=== PATIENT | female | born 1935 | race Caucasian/White ===

== ENCOUNTER 2017-08-14 07:44 | Observation (INO) | payer MEDICARE ==
[2017-08-14] MEDS ORDERED: MORPHINE SULFATE 4MG/4ML SYRG IVP STA (08:26)
[2017-08-14] MEDS ORDERED: SODIUM CHLORIDE 0.9% 500 ML IV STA (08:26)
[2017-08-14] MEDS ORDERED: SODIUM CHLORIDE 0.9% 1,000 ML IV STA (08:26)
[2017-08-14] MEDS ORDERED: ONDANSETRON ODT 4 MG TAB PO STA (08:27)
--- NOTE | 2017-08-14 08:38 | ED ---
General Adult HPI - General Chief complaint: Abdominal Pain Stated complaint: Headache Time Seen by Provider: 08/14/17 08:15 Source: EMS, RN notes reviewed Mode of arrival: EMS Limitations: no limitations - History of Present Illness Initial comments: Patient 82-year-old female presented to the emergency room today with multiple complaints patient admits that she has been having headaches the back of her head that has been aching type sensation over the last 2 months. She states she has been followed the family doctor has an MRI scheduled for next week. Most recently saw him yesterday in the office. States she's been having some nausea vomiting symptoms with these headaches. Does admit some photosensitivity. Patient states she was given a couple different medications one made her more nauseous. She states she has nausea medicine at home. Did not take anything this morning. She also admits to left-sided abdominal pain. She states she's had this for the past year. States she went to the surgeon for this had a CAT scan done. She states that she is still had this pain. States is worse from last night. She describes it as a sharp pain. States is located in the upper quadrant. She denies any other complaints or symptoms. She states this pain is similar to pain that she's had in the past. Patient denies any recent fever, chills, shortness of breath, chest pain, back pain, numbness or tingling, dysuria or hematuria, constipation or diarrhea, visual changes, or any other complaints. - Related Data Home Medications Medication Instructions Recorded Confirmed Aspirin 325 mg PO ONCE 08/14/17 08/14/17 Lisinopril [Zestril] 10 mg PO DAILY 08/14/17 08/14/17 Pravastatin Sodium [Pravachol] 20 mg PO HS 08/14/17 08/14/17 carBAMazepine [TEGretol] 200 mg PO Q12H 08/14/17 08/14/17 Allergies Allergy/AdvReac Type Severity Reaction Status Date / Time Penicillins Allergy Swelling Verified 08/14/17 09:20 Review of Systems ROS Statement: Those systems with pertinent positive or pertinent negative responses have been documented in the HPI. ROS Other: All systems not noted in ROS Statement are negative. Past Medical History Past Medical History: Hyperlipidemia, Hypertension Additional Past Medical History / Comment(s): migraines, diverticulosis History of Any Multi-Drug Resistant Organisms: None Reported Past Surgical History: Hysterectomy Additional Past Surgical History / Comment(s): right shoulder Past Psychological History: No Psychological Hx Reported Smoking Status: Never smoker Past Alcohol Use History: None Reported Past Drug Use History: None Reported General Exam - General Exam Comments Initial Comments: General: The patient is awake and alert, in no distress, and does not appear acutely ill. Eye: Pupils are equal, round and reactive to light, extra-ocular movements are intact. No nystagmus. There is normal conjunctiva bilaterally. No signs of icterus. Ears, nose, mouth and throat: There are moist mucous membranes and no oral lesions. Neck: The neck is supple, there is no tenderness or JVD. Cardiovascular: There is a regular rate and rhythm. No murmur, rub or gallop is appreciated. Respiratory: Lungs are clear to auscultation, respirations are non-labored, breath sounds are equal. No wheezes, stridor, rales, or rhonchi. Gastrointestinal: Abdomen soft on palpation. Tender to palpation left upper quadrant. No rebound tenderness. No guarding. No CVA tenderness. Musculoskeletal: Normal ROM, no tenderness. Strength 5/5. Sensation intact. Pulses equal bilaterally 2+. Neurological: A&O x 3. CN II-XII intact, There are no obvious motor or sensory deficits. Coordination appears grossly intact. Speech is normal. Skin: Skin is warm and dry and no rashes or lesions are noted. Psychiatric: Cooperative, appropriate mood & affect, normal judgment. Limitations: no limitations Course Vital Signs 08/14/17 08/14/17 08/14/17 07:47 08:42 10:19 Temperature 97.7 F Pulse Rate 76 83 93 Respiratory 18 16 16 Rate Blood Pressure 171/94 146/70 154/72 O2 Sat by Pulse 99 99 99 Oximetry EKG Findings - EKG Comments: EKG Findings:: EKG performed 0835: Shows sinus rhythm with first-degree AV block at 77 bpm. ND interval 212. QRS 86. QT/QTC 414/468. No acute ST changes Medical Decision Making - Medical Decision Making Patient examined at this time states that there is mild improvement of headache. Currently rates it a 9/10. Does admit that pain is felt better. She does admit that this abdominal pain has been present over the last year. Patient's report. States it does feel similar but was worse yesterday. Patient admits that these headaches have been present over the last 2 months. States improvement with medications. Case discussed with attending physician Dr. Verdin who discussed case with physician Dr. Sinha and will have consult to neurology. - Lab Data Result diagrams: 08/14/17 07:55 08/14/17 07:55 Lab Results 08/14/17 08/14/17 08/14/17 Range/Units 07:55 07:55 07:55 WBC (3.8-10.6) k/uL RBC (3.80-5.40) m/uL Hgb (11.4-16.0) gm/dL Hct (34.0-46.0) % MCV (80.0-100.0) fL MCH (25.0-35.0) pg MCHC (31.0-37.0) g/dL RDW (11.5-15.5) % Plt Count (150-450) k/uL Neutrophils % % Lymphocytes % % Monocytes % % Eosinophils % % Basophils % % Neutrophils # (1.3-7.7) k/uL Lymphocytes # (1.0-4.8) k/uL Monocytes # (0-1.0) k/uL Eosinophils # (0-0.7) k/uL Basophils # (0-0.2) k/uL PT 10.8 (9.0-12.0) sec INR 1.1 (<1.2) APTT 25.5 (22.0-30.0) sec Sodium 131 L (137-145) mmol/L Potassium 4.9 (3.5-5.1) mmol/L Chloride 93 L (98-107) mmol/L Carbon Dioxide 22 (22-30) mmol/L Anion Gap 16 mmol/L BUN 17 (7-17) mg/dL Creatinine 0.80 (0.52-1.04) mg/dL Est GFR (CKD-EPI)AfAm 80 (>60 ml/min/1.73 sqM) Est GFR (CKD-EPI)NonAf 69 (>60 ml/min/1.73 sqM) Glucose 83 (74-99) mg/dL Plasma Lactic Acid Baltazar 1.2 (0.7-2.0) mmol/L Calcium 9.8 (8.4-10.2) mg/dL Total Bilirubin 0.6 (0.2-1.3) mg/dL AST 42 H (14-36) U/L ALT 29 (9-52) U/L Alkaline Phosphatase 56 (38-126) U/L Total Creatine Kinase (30-135) U/L CK-MB (CK-2) (0.0-2.4) ng/mL CK-MB (CK-2) Rel Index Troponin I (0.000-0.034) ng/mL Total Protein 6.4 (6.3-8.2) g/dL Albumin 4.1 (3.5-5.0) g/dL Amylase 44 (30-110) U/L Lipase 45 (23-300) U/L Urine Color Urine Appearance (Clear) Urine pH (5.0-8.0) Ur Specific [place] (1.001-1.035) Urine Protein (Negative) Urine Glucose (UA) (Negative) Urine Ketones (Negative) Urine Blood (Negative) Urine Nitrite (Negative) Urine Bilirubin (Negative) Urine Urobilinogen (<2.0) mg/dL Ur Leukocyte Esterase (Negative) 08/14/17 08/14/17 08/14/17 Range/Units 07:55 07:55 07:55 WBC 5.3 (3.8-10.6) k/uL RBC 4.98 (3.80-5.40) m/uL Hgb 14.7 (11.4-16.0) gm/dL Hct 42.1 (34.0-46.0) % MCV 84.6 (80.0-100.0) fL MCH 29.4 (25.0-35.0) pg MCHC 34.8 (31.0-37.0) g/dL RDW 12.6 (11.5-15.5) % Plt Count 270 (150-450) k/uL Neutrophils % 62 % Lymphocytes % 22 % Monocytes % 10 % Eosinophils % 2 % Basophils % 1 % Neutrophils # 3.3 (1.3-7.7) k/uL Lymphocytes # 1.2 (1.0-4.8) k/uL Monocytes # 0.5 (0-1.0) k/uL Eosinophils # 0.1 (0-0.7) k/uL Basophils # 0.0 (0-0.2) k/uL PT (9.0-12.0) sec INR (<1.2) APTT (22.0-30.0) sec Sodium (137-145) mmol/L Potassium (3.5-5.1) mmol/L Chloride (98-107) mmol/L Carbon Dioxide (22-30) mmol/L Anion Gap mmol/L BUN (7-17) mg/dL Creatinine (0.52-1.04) mg/dL Est GFR (CKD-EPI)AfAm (>60 ml/min/1.73 sqM) Est GFR (CKD-EPI)NonAf (>60 ml/min/1.73 sqM) Glucose (74-99) mg/dL Plasma Lactic Acid Bal[place]zar (0.7-2.0) mmol/L Calcium (8.4-10.2) mg/dL Total Bilirubin (0.2-1.3) mg/dL AST (14-36) U/L ALT (9-52) U/L Alkaline Phosphatase (38-126) U/L Total Creatine Kinase 795 H (30-135) U/L CK-MB (CK-2) 3.4 H* (0.0-2.4) ng/mL CK-MB (CK-2) Rel Index 0.4 Troponin I <0.012 (0.000-0.034) ng/mL Total Protein (6.3-8.2) g/dL Albumin (3.5-5.0) g/dL Amylase (30-110) U/L Lipase (23-300) U/L Urine Color Light Yellow Urine Appearance Clear (Clear) Urine pH 6.0 (5.0-8.0) Ur Specific [place] 1.011 (1.001-1.035) Urine Protein Negative (Negative) Urine Glucose (UA) Negative (Negative) Urine Ketones 3+ H (Negative) Urine Blood Negative (Negative) Urine Nitrite Negative (Negative) Urine Bilirubin Negative (Negative) Urine Urobilinogen <2.0 (<2.0) mg/dL Ur Leukocyte Esterase Negative (Negative) Disposition Clinical Impression: Intractable headache, Abdominal pain Disposition: ADMITTED IP TO THIS [facility] Condition: Stable Is patient prescribed a controlled substance at discharge?: No Referrals: Yefri Martinez DO [Primary Care Provider] - 1-2 days Time of Disposition: 11:28
[2017-08-14 08:42] LABS: Basophils % (A) 1 %; Eosinophils # (A) 0.1 k/uL (0-0.7); Eosinophils % (A) 2 %; HCT 42.1 % (34.0-46.0); HGB 14.7 gm/dL (11.4-16.0); Lymphocytes # (A) 1.2 k/uL (1.0-4.8); Lymphocytes % (A) 22 %; MCH 29.4 pg (25.0-35.0); MCHC 34.8 g/dL (31.0-37.0); MCV 84.6 fL (80.0-100.0); Mean Platelet Volume 7.3; Monocytes # (A) 0.5 k/uL (0-1.0); Monocytes % (A) 10 %; Neutrophils # (A) 3.3 k/uL (1.3-7.7); Neutrophils % (A) 62 %; Platelet Count 270 k/uL (150-450); RBC 4.98 m/uL (3.80-5.40); RDW 12.6 % (11.5-15.5); WBC 5.3 k/uL (3.8-10.6)
[2017-08-14 08:45] LABS: Appearance,Urine Clear (Clear); Bilirubin,Urine Negative (Negative); Blood,Urine Negative (Negative); Color,Urine Light Yellow; Glucose,Urine (UA) Negative (Negative); Ketones,Urine 3+ (Negative); Leukocyte Esterase,Urine Negative (Negative); Nitrite,Urine Negative (Negative); Protein,Urine Negative (Negative); Specific Gravity,Urine 1.011 (1.001-1.035); Urobilinogen,Urine <2.0 mg/dL (<2.0)
[2017-08-14 08:52] LABS: INR 1.1 (<1.2); Partial Thromboplastin Time 25.5 sec (22.0-30.0); Prothrombin Time 10.8 sec (9.0-12.0)
[2017-08-14 08:54] LABS: Albumin 4.1 g/dL (3.5-5.0); Calcium 9.8 mg/dL (8.4-10.2); Potassium 4.9 mmol/L (3.5-5.1); Total Bilirubin 0.6 mg/dL (0.2-1.3); Total Protein 6.4 g/dL (6.3-8.2)
[2017-08-14 09:10] LABS: Creatine Kinase 795 U/L (30-135)
--- NOTE | 2017-08-14 09:16 | XR ---
EXAMINATION TYPE: XR chest 2V DATE OF EXAM: 08/14/2017 COMPARISON: NONE HISTORY: Abdominal and chest pain TECHNIQUE: Frontal and lateral views of the chest are obtained. FINDINGS: There is no focal air space opacity, pleural effusion, or pneumothorax seen. The cardiac silhouette size is within normal limits. The osseous structures are intact. Minimal multilevel dege nerative changes of the thoracic spine are noted. Pulmonary hyperinflation may relate to underlying C OPD although there is no flattening of the diaphragms or biapical lucency and therefore this could al so relate to degree of inspiration. Correlation with pulmonary function test could be performed. IMPRESSION: No acute cardiopulmonary process.
[2017-08-14] MEDS ORDERED: RX INFO: IV CONTRAST WAS GIVEN 1 EACH MISC MISCELLANE PRN (09:17)
--- NOTE | 2017-08-14 09:18 | CT ---
EXAMINATION TYPE: CT brain elizabeth courtney DATE OF EXAM: 08/14/2017 COMPARISON: NONE HISTORY: Headache and neck pain CT DLP: 1197.8 mGycm Automated exposure control for dose reduction was used. TECHNIQUE: CT scan of the head and cervical spine are performed without contrast. FINDINGS: There is no acute intracranial hemorrhage, mass effect, or midline shift identified. The ventricles and sulci are within normal limits in size. Periventricular white matter low attenuation likely due to chronic small vessel ischemia is present. The globes are intact and the visualized sinu ses are clear. Cervical spine is visualized in its entirety from C1 through upper thoracic levels and demonstrates s atisfactory alignment without evidence of acute fracture or dislocation. Prevertebral soft tissue ap pears within normal limits. There is multilevel spondylosis, multilevel foraminal encroachment. Loss of disc height present at C3-4, C4-5 and C5-6. The C1-C2 articulation is unremarkable. IMPRESSION: 1. There is no acute fracture or dislocation evident in the cervical spine. 2. No acute intracranial hemorrhage, mass effect, or midline shift is seen.
[2017-08-14 09:22] LABS: Troponin I <0.012 ng/mL (0.000-0.034)
[2017-08-14 09:26] LABS: Creatine Kinase MB 3.4 ng/mL (0.0-2.4)
--- NOTE | 2017-08-14 09:54 | CT ---
EXAMINATION TYPE: CT abdomen pelvis w con DATE OF EXAM: 08/14/2017 HISTORY: Intermittent left-sided sided abdominal pain CT DLP: 333.6mGycm Automated Exposure Control for Dose Reduction was Utilized. CONTRAST: CT scan of the abdomen and pelvis is performed with IV Contrast, patient injected with 100 mL of Isov ue 300. COMPARISON: 01/26/2015 FINDINGS: LUNG BASES: No significant abnormality is appreciated. LIVER/GB: No intrapelvic biliary ductal dilatation. The hepatic parenchyma enhances homogeneously. Ga llbladder is unremarkable without cholelithiasis. PANCREAS: No ductal dilatation. Pancreas enhances homogeneously. SPLEEN: No significant abnormality is seen. No splenomegaly. ADRENALS: No nodularity or thickening. KIDNEYS: Bilateral subcentimeter hypoattenuated renal lesions measure up to 4 mm and are too small to accurately characterize. BOWEL: There is redemonstration of a small hiatal hernia. Bowel is nondilated. Scattered colonic dive rticula are seen without pericolonic fat stranding. Descending duodenal diverticulum is redemonstrate d. LYMPH NODES: No greater than 1cm abdominal or pelvic lymph nodes are appreciated. OSSEOUS STRUCTURES: Multilevel degenerative changes of the as well as lumbosacral spine are noted. IMPRESSION: No significant acute finding is seen to account for patient's clinical symptoms. Colonic diverticulosis without evidence of acute diverticulitis. Redemonstration of a small hiatal hernia.
[2017-08-14] MEDS ORDERED: METOCLOPRAMIDE 5 MG/ML 2 ML VIAL IVP STA (09:58)
[2017-08-14] MEDS ORDERED: diphenhydrAMINE 50 MG/ML 1 ML VIAL IVP STA (09:58)
[2017-08-14] MEDS ORDERED: MORPHINE ORAL SOLN 10 MG/5 ML CUP PO PRN (11:28)
[2017-08-14] MEDS ORDERED: SODIUM CHLORIDE 0.9% 1,000 ML IV ONE (11:28)
[2017-08-14] MEDS ORDERED: ONDANSETRON 4 MG/2 ML VIAL IVP PRN (11:28)
[2017-08-14] MEDS ORDERED: NALOXONE 0.4 MG/ML 1 ML VIAL IV PRN (11:28)
[2017-08-14] MEDS ORDERED: LORazepam 2 MG/ML INJ IV PRN (12:29)
[2017-08-14] MEDS: carBAMazepine 200 MG TAB PO SCH ×2 (16:09→21:24)
[2017-08-14] MEDS: PANTOPRAZOLE 40 MG/10 ML VIAL IVP SCH ×2 (16:09→21:24)
[2017-08-14] MEDS: KETOROLAC 30 MG/ML 1 ML VIAL IVP PRN (16:09)
--- NOTE | 2017-08-14 18:33 | MR ---
EXAMINATION TYPE: MR brain wo/w con DATE OF EXAM: 08/14/2017 6:27 PM COMPARISON: NONE HISTORY: Headaches Gadavist 7.5 CONTRAST: Patient received 7.5 mL intravenous Gadavist gadolinium contrast. Multiplanar and multispin-echo imaging of the brain was performed . Pre and post contrast enhanced i mages are obtained. The ventricles, basal cisterns and sulci overlying the cerebral convexities are mildly enlarged. There is evidence of mild periventricular white matter ischemic demyelination. Remote deep white matter insults are also noted. No acute edema is seen on diffusion weighted imaging. There is no evidence for midline shift or mass effect. Acute intracranial hemorrhage or extra-axial collection is not evident. No enhancing lesions are seen. Mild mucosal thickening in ethmoid air cells. Small amount of fluid within the mastoid air cells. IMPRESSION: Age-related atrophic and chronic small vessel ischemic change. No acute intracranial process at this time. No enhancing lesions are seen.
[2017-08-14] MEDS: PRAVASTATIN SODIUM 20 MG TAB PO SCH (21:46)
--- NOTE | 2017-08-14 22:29 | HP ---
HISTORY AND PHYSICAL DATE OF SERVICE: 08/14/2017 CHIEF COMPLAINTS: Headache and abdominal pain. HISTORY OF PRESENT ILLNESS: This 82-year-old woman with a past medical history of multiple medical problems, including hypertension, hyperlipidemia, history of migraine, history of appendectomy, hysterectomy, being followed by Dr. Martinez in the outpatient setting was admitted to [facility] with complaints of severe headache. The headache is more on the right side posteriorly. The patient also has some dizziness. Patient also has some nausea and vomiting also. The patient also was scheduled for an MRI as an outpatient. Patient had abdominal pain on the left side which is throbbing in character and because of multiple symptomatology, the patient came to [facility] and was admitted for further evaluation and treatment. There is no history of fever, rigors. No history of headache, rigors, chills at this time. PAST MEDICAL HISTORY: History of hypertension, hyperlipidemia, history of migraines, history of appendectomy, hysterectomy. MEDICATIONS PRIOR TO ADMISSION: Include home medications are: 1. Pravachol 20 mg q.h.s. 2. Aspirin 320 mg once a day. 3. Tegretol 20 mg b.i.d. 4. Zestril 10 mg b.i.d. ALLERGIES: PENICILLIN. FAMILY HISTORY: History of osteoporosis in the family. SOCIAL HISTORY: No history of smoking. No history of alcohol. REVIEW OF SYSTEMS: ENT: Mentioned earlier. CARDIOVASCULAR: No angina, palpitations. RESPIRATORY: No cough or hemoptysis. GI: No nausea or vomiting. : No dysuria. NERVOUS: No numbness or weakness. Otherwise, as mentioned earlier. ALLERGY/IMMUNOLOGY: No asthma. MUSCULOSKELETAL: As mentioned earlier. HEMATOLOGY/ONCOLOGY: No history of anemia. ENDOCRINE: No history of diabetes, hypothyroidism. CONSTITUTIONAL: As mentioned earlier. DERMATOLOGY: Negative. RHEUMATOLOGY: Negative. PSYCHIATRY: As mentioned earlier. PHYSICAL EXAMINATION: Alert, oriented x3. Blood pressure 140/67, respirations 18, temperature 96.2, pulse ox 96% on room air. HEENT: Conjunctivae normal. Oral mucosa moist. NECK: No jugular venous distention. No carotid bruits. No lymph node enlargement. CARDIOVASCULAR: S1, S2 muffled. No S3. No S4. RESPIRATORY: Breath sounds diminished in the bases. No rhonchi. No crackles. ABDOMEN: Soft. Mild diffuse discomfort along the left upper quadrant. There is no guarding. No mass palpable. LEGS: No edema. No swelling. NERVOUS SYSTEM: Higher functions as mentioned earlier. Moves all 4 limbs. No focal motor or sensory deficits. LYMPHATIC: No lymphadenopathy in neck or axillae. SKIN: No ulcer, rash or bleeding. LABS: CBC within normal limits. Sodium 131, potassium 4.9. Otherwise CK is 795. ASSESSMENT: 1. Headache, posterior for evaluation, possible migraine, rule out intracranial space- occupying lesion. 2. Increased creatine kinase with possible rhabdomyolysis. 3. Hyponatremia. 4. History of hypertension. 5. Hyperlipidemia. 6. History of diverticulosis. 7. History of appendectomy. 8. FULL CODE. RECOMMENDATIONS AND DISCUSSION: In this 82-year-old woman who presented with multiple complex medical issues, we will monitor the patient closely. Continue the current management medical and symptomatic treatment. Otherwise at this time, I would recommend symptomatic treatment, neurology consult and DVT prophylaxis. Otherwise, closely monitor. MRI and MRA and CT scan of the abdomen were reviewed, which did not show any acute abnormality. However, will obtain consultation from Dr. Sterling to evaluate for continued followup as well as the abdominal pain is concerned. The prognosis is guarded. I discussed with the patient's family. Further recommendations to follow. MMODL / IJN: [id number] /
[2017-08-15] MEDS: KETOROLAC 30 MG/ML 1 ML VIAL IVP PRN (06:57)
--- NOTE | 2017-08-15 08:11 | P.CON ---
Consult Note - . Consult date: 08/15/17 Assessment/Plan:: Thank you very much for asking me to see this patient. She is a 82-year-old white female who is well-known to me. I've been seeing her for several years now with recurrent episodes of abdominal pain and has been treated for irritable bowel syndrome. All workup in the past has been negative in terms of food colonoscopy EGD and CT scans. Most recent computed tomography scan from last night was also unremarkable. Her pain is mostly in the left upper quadrant area. She described it as being throbbing. May last several hours. Seems to have been improved with the Bentyl over the years. Some chronic constipation and was recommended stool softener and/or fiber supplements in the past. She states she has pedal constipated but especially since she hasn't had much to eat. She was admitted with what sounds like migraine headaches with which she has a history of. No blood per rectum. Past history as above. Has hypertension history of the headaches throbbing abdominal pain mostly in the left side to close this by a colonoscopy small hiatal hernia hyperlipidemia. 6 social history patient is . Lives at home. Denies smoking or alcohol which she drinks very rarely. Systems review as above. No chest pain. No cough hemoptysis. No rectal bleeding. No vaginal discharge or bleeding or urinary symptoms. Has had some nausea related to a headache and she thinks her medications. On examination the patient is well-built well-nourished in no acute distress. Headaches somewhat improved. This is stable temperature is normal color is satisfactory. Heart regular rhythm. Abdomen is quite soft depressible nontender no masses or organomegaly no hernias are noted. No guarding or rebound. No CVA tenderness. After laboratory studies reviewed. Hemoglobin is normal at 14.7. WBC is normal. CMP is unremarkable. CT was reviewed. Impression chronic recurrent episodes of throbbing discomfort in the left side of the abdomen in the upper quadrant. Doubt any significant intra-abdominal pathology. May be related to spastic bowel syndrome. May be musculoskeletal in nature. Recurrent severe headaches. Recommendation from a surgical standpoint nothing more to offer. We'll try her on some Bentyl again which was recommended to take the once in the morning and then every 6 hours as needed. Fiber supplement and high-fiber diet daily. We'll be glad to see her back in the office in 2-3 weeks.
[2017-08-15] MEDS: PANTOPRAZOLE 40 MG/10 ML VIAL IVP SCH (09:03)
[2017-08-15] MEDS: carBAMazepine 200 MG TAB PO SCH ×2 (09:03→21:24)
[2017-08-15] MEDS: LISINOPRIL 10 MG TAB PO SCH (09:03)
[2017-08-15] MEDS: DICYCLOMINE 10 MG CAP PO SCH ×3 (09:03→21:24)
[2017-08-15 09:13] LABS: Basophils % (A) 1 %; Eosinophils # (A) 0.1 k/uL (0-0.7); Eosinophils % (A) 3 %; HCT 39.6 % (34.0-46.0); HGB 13.6 gm/dL (11.4-16.0); Lymphocytes % (A) 22 %; MCH 29.7 pg (25.0-35.0); MCHC 34.4 g/dL (31.0-37.0); MCV 86.4 fL (80.0-100.0); Mean Platelet Volume 6.9; Monocytes # (A) 0.4 k/uL (0-1.0); Monocytes % (A) 9 %; Neutrophils % (A) 63 %; Platelet Count 255 k/uL (150-450); RBC 4.58 m/uL (3.80-5.40); RDW 12.6 % (11.5-15.5); WBC 4.7 k/uL (3.8-10.6)
[2017-08-15 09:27] LABS: Albumin 3.4 g/dL (3.5-5.0); Calcium 8.8 mg/dL (8.4-10.2); Potassium 4.5 mmol/L (3.5-5.1); Total Bilirubin 0.3 mg/dL (0.2-1.3); Total Protein 5.6 g/dL (6.3-8.2)
--- NOTE | 2017-08-15 09:36 | CONS ---
CONSULTATION DATE OF CONSULTATION: 08/14/2017. CHIEF COMPLAINT: Headache. HISTORY OF PRESENT ILLNESS: The patient is a pleasant 82-year-old, female who is being evaluated today on 08/14/2017 by the neurology service per the request of Dr. Sinha for an intractable headache. The patient has been having a severe headache for the past couple of months. The intensity of the headache waxes and wanes. The headaches are mostly in the occipital region and they radiate frontally. She states that it is worse on the right side compared to the left. She denies any head injuries. She describes the pain as a dull aching pain and she rates it anywhere from 5/10 to 10/10 in intensity. She did see Dr. Martinez, her primary care physician, who tried her on analgesics with no improvement. More recently, she was tried on Tegretol which gave her severe nausea and she discontinued this medication after 2 days of use. A stat CT scan of the brain and cervical spine were done which were normal. Her CBC, cardiac enzymes and urinalysis were normal. Her comprehensive metabolic profile showed hyponatremia at 131 and slightly elevated AST at 42. The patient was given morphine IV and admitted for further workup and management. At the time of my evaluation, she is lying in her bed and appears to be in no acute distress. She states that her headache has mildly improved on morphine and she rates it as 7/10 in intensity at the time of my evaluation. She denies any nausea or vomiting at this time. PAST MEDICAL HISTORY: Hypertension and dyslipidemia. She also has history of migraine headaches and diverticulosis. PAST SURGICAL HISTORY: Right shoulder surgery and hysterectomy. SOCIAL HISTORY: She denies any tobacco, alcohol or drug use. FAMILY HISTORY: Noncontributory. HOME MEDICATIONS: Reviewed in the chart. ALLERGIES: PENICILLIN. REVIEW OF SYSTEM: CONSTITUTIONAL: Negative. EYES: Negative. ENT: Negative. CARDIOVASCULAR: Negative. RESPIRATORY: Negative. NEUROLOGICAL: As mentioned above. She denies any numbness or weakness. GASTROINTESTINAL: Negative. GENITOURINARY: Negative. PSYCHIATRIC: Negative. ENDOCRINE: Negative. DERMATOLOGICAL: Negative. MUSCULOSKELETAL: Negative. PHYSICAL EXAM: Vital signs show a temperature of 96.2, pulse 74, respiration 18, blood pressure 141/56. GENERAL APPEARANCE: The patient is a well-developed, elderly female, who appears to be in no acute distress. HEENT: Normocephalic, atraumatic, no facial asymmetry is seen. Tenderness to palpation is felt along bilateral greater occipital nerve region. Neck is supple with no masses felt. CARDIOVASCULAR: Regular rate and rhythm. ABDOMEN: Nontender, nondistended. Extremities showed no edema or clubbing. NEUROLOGICAL EXAM: The patient is alert, aware and oriented x3. Speech and language are normal. Strength is full in all 4 extremities. Sensory exam was normal to light touch in all 4 extremities. No tremors or seizure-like activity is seen. No facial asymmetry is noticed on cranial nerve testing. IMPRESSION: 1. Intractable headache. 2. Occipital neuritis. 3. Hypertension. RECOMMENDATION: The patient's headache and physical examination is consistent with occipital neuritis. I did review her CT scan of the brain, which was normal. The patient was reassured from that standpoint. An MRI of the brain has been ordered. If the MRI is negative, the patient will be cleared for discharge from a neurology standpoint. She will need to follow up in the clinic for an occipital nerve block. I do recommend nonsteroidal anti-inflammatory medications if tolerated. Continue neuro checks. I will continue to follow with you. Further recommendations to follow. Thank you for allowing me to participate in the care of your patient. If you have any questions, please feel free to contact me. MMODL / IJN: [id number] /
[2017-08-15] MEDS: PSYLLIUM HUSK 100% 6 GM PACKET PO SCH (11:11)
[2017-08-15] MEDS: BUTALB/APAP/CAFF 50-325-40MG TAB PO PRN ×2 (11:33→16:39)
[2017-08-15 11:49] LABS: Glucose,Whole Blood 85 mg/dL (75-99)
[2017-08-15] MEDS: INSULIN ASPART 100 UNIT/ML 1 ML 10 ML VIAL SQ SCH ×4 (11:58→21:28)
[2017-08-15] MEDS ORDERED: methylPREDNISolone SOD SUCCI 125 MG/2 ML VIAL IV SCH (12:00)
[2017-08-15 13:28] VITALS: BMI 21.7
--- NOTE | 2017-08-15 15:43 | P.PN ---
Subjective Progress Note Date: 08/15/17 Principal diagnosis: Migraine with secondary occipital neuralgia Neurology is following an 82-year-old female with intractable headache/ migraine. Patient does have a migraine history which ceased approximately 15 years ago. Patient has been having severe headache for the past couple of months intermittently but not to migraine level. Intensity waxes and wanes. Headaches are mostly in the occipital region and radiate frontally. Patient states they can be worse on the right compared to the left. Patient denies any injury to the head or neck, describes the pain as dull and aching and rates it currently at 8 out of 10 in intensity. Patient did see primary care provider and was given analgesia with no improvement. She was then given Tegretol which caused severe nausea and was discontinued after 2 days. Computed tomography scan of the brain and cervical spine were done which were normal. CBC, cardiac enzymes and urinalysis were normal. Patient does have slightly elevated AST. On arrival in the ER patient was given morphine IV and admitted for further workup. Since being evaluated by neurology yesterday, medication intervention has failed to decrease the patient's head pain to a tolerable level. Patient reports today the pain is equal both frontal and occipital. On contact, patient was resting in bed comfortably in no acute distress. Patient was alert and oriented 3. Objective - Vital Signs Vital signs: Vital Signs Temp 98.6 F 08/15/17 14:25 Pulse 97 08/15/17 14:25 Resp 16 08/15/17 14:25 BP 150/75 08/15/17 14:25 Pulse Ox 97 08/15/17 14:25 Intake & Output 08/14/17 08/15/17 08/15/17 18:59 06:59 18:59 Intake Total 1499 800 Balance 1499 800 Weight 53.977 kg 53.977 kg Intake: Intake, IV Titration 1499 800 Amount Sodium Chloride 0.9% 1, 800 000 ml @ 100 mls/hr IV . Q10H ONE Rx#:[id number] Sodium Chloride 0.9% 1, 500 000 ml @ 100 mls/hr IV . Q10H STA Rx#:[id number] Sodium Chloride 0.9% 500 999 ml @ 999 mls/hr IV .Q31M STA Rx#:[id number] Other: # Voids 1 1 - Exam Gen. appearance: Alert, in no apparent distress Head: Atraumatic normocephalic, normal inspection Eyes: Well appearance, PERRL, EOMI. absent: Scleral icterus, conjunctival injection, nystagmus, periorbital swelling. Ear nose and throat: Normal exam, mucous membranes moist Neck: Normal inspection. Absent tenderness, lymphadenopathy Respiratory: No increased work of breathing. Cardiovascular: Regular rate, normal rhythm GIabdominal: no tenderness, no guarding Extremities: All range of motion, normal capillary refill, no tenderness, pedal edema, joint swelling, calf tenderness Neurological: Alert and oriented 3, cranial nerves II through XII intact, no unilateral lateralizing weakness, no seizure activity noted on physical exam, no pronator drift and no nystagmus. Tenderness to touch and palpation over the bilateral greater occipital nerve. Patient has frontal pain consistent with V1 and V2 distribution with possible sphenopalatinetrigeminal nerve ganglion involvement. Psychological: Mood and affect appropriate setting - Labs CBC & Chem 7: 08/15/17 07:59 08/15/17 07:59 Labs: Abnormal Lab Results - Last 24 Hours (Table) 08/14/17 08/15/17 Range/Units 07:55 07:59 Sodium 136 L (137-145) mmol/L Glucose 72 L (74-99) mg/dL Creatine Kinase 821 H 467 H (30-135) U/L Total Protein 5.6 L (6.3-8.2) g/dL Albumin 3.4 L (3.5-5.0) g/dL Assessment and Plan (1) Migraine Current Visit: Yes Status: Acute Code(s): G43.909 - MIGRAINE, UNSP, NOT INTRACTABLE, WITHOUT STATUS MIGRAINOSUS SNOMED Code(s): 94016479 (2) Occipital neuralgia Current Visit: Yes Status: Acute Code(s): M54.81 - OCCIPITAL NEURALGIA SNOMED Code(s): 95366090 Plan: 1. Migraine 2. Occipital neuralgia On physical exam, patient has tenderness to touch and palpation over the bilateral greater occipital nerve consistent with occipital neuralgia. Patient also has findings of intermittent unilateral and bilateral frontal head pain consistent with trigeminal involvement including V1 and V2 distribution. Patient does have a previous history of migraine with recurrent headache. Patient head pain has failed to return to baseline since admission. Discussed treatment options with the patient including risks, benefits and alternatives. Patient agreed to proceed with IV Solu-Medrol 125 mg every 8 hours with bedside glucose monitoring and sliding insulin per hospital sliding scale protocol and Zofran for nausea. Status: Neurology will continue to follow with possible discharge anticipated on 08/16/17 of symptoms resolved with tolerable level with further outpatient workup and follow-up needed. I discussed the patients history, physical exam, diagnostic testing, lab work and imaging with Dr Garcia prior to implementing the plan above. He agrees with the plan as implemented prior to implementation.
[2017-08-15] MEDS: methylPREDNISolone SOD SUCCI 125 MG/2 ML VIAL IV SCH (16:39)
[2017-08-15] MEDS: PANTOPRAZOLE 40 MG TABLET PO SCH (16:40)
[2017-08-15 16:56] LABS: Glucose,Whole Blood 126 mg/dL (75-99)
[2017-08-15 20:11] LABS: Glucose,Whole Blood 162 mg/dL (75-99)
[2017-08-15] MEDS: LORazepam 2 MG/ML INJ IV PRN (21:24)
[2017-08-15] MEDS: PRAVASTATIN SODIUM 20 MG TAB PO SCH (21:24)
--- NOTE | 2017-08-15 23:06 | PN ---
PROGRESS NOTE OF SERVICE: 08/15/2017. INTERVAL HISTORY: This 82-year-old woman who was admitted with headache, is being evaluated by Neurology as well. No chest pain. No palpitations. No fever. Occipital neuritis considered a possibility. IV Solu-Medrol has been initiated. No chest pain. No palpitation. EXAM: Alert and oriented times three. Pulse 97, blood pressure 157/74, respirations 16, temperature 98.2, pulse ox 97% on room air. HEENT: Conjunctivae normal. Neck: No jugular venous distention. Cardiovascular: S1, S2 muffled. Respiratory: Breath sounds diminished in the bases. No rhonchi. No crackles. Abdomen is soft, nontender. No mass palpable. Legs are no edema. No swelling. Central nervous system: No focal deficits. LABS: CBC within normal limits. Accu-Cheks 162. ASSESSMENT: 1. Headache, possibly migraine, possibly occipital neuralgia. 2. Increased creatine kinase and possible rhabdomyolysis, mild. 3. Hyponatremia. 4. History of hypertension. 5. Hyperlipidemia. 6. History of diverticulosis. 7. History of appendectomy. 8. FULL CODE. RECOMMENDATIONS AND DISCUSSION: To continue current medications, management and symptomatic treatment. MRI is normal. Neurology has recommended high-dose IV steroids. Symptomatic treatment will be continued. Prognosis guarded because of multiple complex medical issues. Further recommendations to follow. MMODL / IJN: [id number] /
[2017-08-16] MEDS: methylPREDNISolone SOD SUCCI 125 MG/2 ML VIAL IV SCH ×3 (00:17→15:13)
[2017-08-16] MEDS: LORazepam 2 MG/ML INJ IV PRN (03:12)
[2017-08-16 07:33] LABS: Glucose,Whole Blood 123 mg/dL (75-99)
[2017-08-16] MEDS: BUTALB/APAP/CAFF 50-325-40MG TAB PO PRN ×2 (08:19→13:17)
[2017-08-16] MEDS: LISINOPRIL 10 MG TAB PO SCH (08:21)
[2017-08-16] MEDS: carBAMazepine 200 MG TAB PO SCH ×2 (08:21→21:48)
[2017-08-16] MEDS: INSULIN ASPART 100 UNIT/ML 1 ML 10 ML VIAL SQ SCH ×4 (08:21→21:48)
[2017-08-16] MEDS: PANTOPRAZOLE 40 MG TABLET PO SCH ×2 (08:21→18:14)
[2017-08-16] MEDS: DICYCLOMINE 10 MG CAP PO SCH ×3 (08:21→21:49)
[2017-08-16 08:40] LABS: Anion Gap 16 mmol/L; Blood Urea Nitrogen 8 mg/dL (7-17); Calcium 9.6 mg/dL (8.4-10.2); Carbon Dioxide 19 mmol/L (22-30); Chloride 100 mmol/L (98-107); Creatine Kinase 363 U/L (30-135); Glucose 127 mg/dL (74-99); Potassium 4.2 mmol/L (3.5-5.1); Sodium 135 mmol/L (137-145)
[2017-08-16] MEDS: PSYLLIUM HUSK 100% 6 GM PACKET PO SCH (10:01)
[2017-08-16 12:41] LABS: Glucose,Whole Blood 142 mg/dL (75-99)
[2017-08-16] MEDS ORDERED: MELATONIN 5 MG TABLET PO PRN (16:27)
--- NOTE | 2017-08-16 16:50 | P.PN ---
Subjective Progress Note Date: 08/16/17 Personal being dictated for Dr. Sinha. Interval history: This is an 82-year-old female who continues to have occipital headache, radiating to the frontal area. Maintained on Fioricet, IV steroids, morphine. Denies blurred vision denies lightheadedness or dizziness. No focal deficits. Complains of nausea. Evaluated further by a neurology. Patient is scheduled to have outpatient block at neurology's office tomorrow. Denies chest pain, palpitations or shortness of breath. CK and a sodium improving. Objective - Vital Signs Vital signs: Vital Signs Temp 97.6 F 08/16/17 07:00 Pulse 116 H 08/16/17 07:00 Resp 16 08/16/17 07:00 BP 147/94 08/16/17 07:00 Pulse Ox 99 08/16/17 07:00 Intake & Output 08/15/17 08/16/17 08/16/17 18:59 06:59 18:59 Intake Total 800 Balance 800 Weight 53.977 kg Intake: Intake, IV Titration 800 Amount Sodium Chloride 0.9% 1, 800 000 ml @ 100 mls/hr IV . Q10H ONE Rx#:[id number] Other: # Voids 3 2 - Exam PHYSICAL EXAM: VITAL SIGNS: [As above] GENERAL: Sitting up in bed, tired appearing HEENT: Conjunctivae normal. eyes normal. Oral mucosa moist NECK: No JVD. No thyroid enlargement. No LNs CARDIOVASCULAR: S1, S2 muffled. No murmur RESPIRATION: Breath sounds diminished in the bases. No rhonchi or crackles. ABDOMEN: Soft, nontender . No guarding. no masses palpable. Bowel sounds heard. LEGS: No edema. no swelling. PSYCHIATRY: Alert and oriented -3, mood and affect normal. NERVOUS SYSTEM: Cranial N 2-12 grossly normal. Moves all 4 limbs. Diffuse weakness No focal deficits. Skin: no ulcer no rash Joints: No active swelling. No inflammation. Lymphatic system. No LN neck axilla or groin. - Labs CBC & Chem 7: 08/15/17 07:59 08/16/17 07:47 Labs: Abnormal Lab Results - Last 24 Hours (Table) 08/15/17 08/15/17 08/16/17 Range/Units 16:50 20:09 07:30 Sodium (137-145) mmol/L Carbon Dioxide (22-30) mmol/L Glucose (74-99) mg/dL POC Glucose (mg/dL) 126 H 162 H 123 H (75-99) mg/dL Creatine Kinase (30-135) U/L 08/16/17 Range/Units 07:47 Sodium 135 L (137-145) mmol/L Carbon Dioxide 19 L (22-30) mmol/L Glucose 127 H (74-99) mg/dL POC Glucose (mg/dL) (75-99) mg/dL Creatine Kinase 363 H (30-135) U/L Assessment and Plan Assessment: 1. Headache, possibly migraine, possibly occipital neuralgia 2. Increased CK, possible mild rhabdomyolysis 3. Hyponatremia 4. History of hypertension 5. Hyperlipidemia 6. Diverticulosis Plan: Continue on current medication regime ,monitoring and symptomatic treatment. Pain management. Patient will have outpatient block at neurology's office tomorrow. Discharge planning in progress. Follow closely with neurology. The impression and plan of care has been dictated as directed. : I performed a history and examination of this patient, discussed the same with the dictator. I agree with the dictator's note ,documented as a scribe. Any additional findings or plans will be noted.
[2017-08-16 17:26] LABS: Glucose,Whole Blood 140 mg/dL (75-99)
[2017-08-16] MEDS: ONDANSETRON 4 MG/2 ML VIAL IVP PRN (18:14)
[2017-08-16 20:48] LABS: Glucose,Whole Blood 149 mg/dL (75-99)
[2017-08-16] MEDS: PRAVASTATIN SODIUM 20 MG TAB PO SCH (21:49)
[2017-08-17] MEDS: methylPREDNISolone SOD SUCCI 125 MG/2 ML VIAL IV SCH ×2 (00:32→07:42)
[2017-08-17 05:44] VITALS: BP 133/70; PULSE 92; RESP 16; TEMP 96.7
[2017-08-17 07:15] LABS: Glucose,Whole Blood 119 mg/dL (75-99)
[2017-08-17] MEDS: ONDANSETRON 4 MG/2 ML VIAL IVP PRN (07:39)
[2017-08-17] MEDS: INSULIN ASPART 100 UNIT/ML 1 ML 10 ML VIAL SQ SCH (07:42)
[2017-08-17] MEDS: LISINOPRIL 10 MG TAB PO SCH (07:42)
[2017-08-17] MEDS: PANTOPRAZOLE 40 MG TABLET PO SCH (07:42)
[2017-08-17] MEDS: carBAMazepine 200 MG TAB PO SCH (07:42)
[2017-08-17] MEDS: DICYCLOMINE 10 MG CAP PO SCH (07:42)
[2017-08-17] MEDS: PSYLLIUM HUSK 100% 6 GM PACKET PO SCH (07:43)
[2017-08-17 09:21] LABS: Anion Gap 12 mmol/L; Blood Urea Nitrogen 9 mg/dL (7-17); Carbon Dioxide 24 mmol/L (22-30); Chloride 98 mmol/L (98-107); Creatine Kinase 139 U/L (30-135); Glucose 103 mg/dL (74-99); Potassium 3.8 mmol/L (3.5-5.1); Sodium 134 mmol/L (137-145)
--- NOTE | 2017-08-17 20:14 | DS ---
DISCHARGE SUMMARY FINAL DIAGNOSES: 1. Headache, possibly migraine, occipital neuralgia. 2. Increased creatine kinase, mild rhabdomyolysis. 3. Hyponatremia. 4. Hypertension. 5. Hyperlipidemia. 6. History of diverticulosis. DISCHARGE DISPOSITION: The patient will be discharged in stable condition with guarded prognosis. HISTORY OF PRESENT ILLNESS: This 82-year-old woman with a past medical history of multiple medical problems, had a significant, severe intractable headache, migraine attack, which did not respond to the current medical treatment. The patient was given intravenous steroids and multiple medications and subsequently patient was evaluated by Neurology. Full neurovascular workup was done. Patient also had abdominal pain. Brain MRI was also done. The patient will be discharged with further plans to follow up in the outpatient setting in Neurology Clinic with occipital nerve injections. On exam, vitals are stable. CARDIOVASCULAR SYSTEM: S1, S2 muffled. ABDOMEN: Soft. NERVOUS SYSTEM: No focal deficit. DISCHARGE ADVICE AND MEDICATIONS: 1. Diet is cardiac. 2. Activity limited until followup. 3. Follow up with Dr. Martinez in 2 to 3 days. 4. Follow up with Dr. Garcia as recommended. 5. Follow up with Dr. Sterling as recommended. 6. Tegretol 200 mg p.o. b.i.d. 7. Bentyl 10 mg t.i.d. p.r.n. 8. Zestril 10 mg p.o. daily. 9. Protonix 40 mg b.i.d. 10.Pravachol 20 mg at bedtime. 11.Metamucil daily. Once again, the patient will be discharged in stable condition with guarded prognosis. MMODL / IJN: [id number] /
== END 2017-08-17 11:01 | disposition home or self-care (01) ==
LOC: EC 07:44 → 6PED 11:20 → 4MS4W 13:05
PROVIDERS: ADMIT Hospitalist; ATTEND Hospitalist
DX: M54.81 Occipital neuralgia (principal); M62.82 Rhabdomyolysis; E87.1 Hypo-osmolality and hyponatremia; R10.12 Left upper quadrant pain; G43.909 Migraine, unspecified, not intractable, without status migrainosus; R74.0 Nonspecific elevation of levels of transaminase and lactic acid dehydrogenase [LDH]; I10 Essential (primary) hypertension; E78.5 Hyperlipidemia, unspecified; K58.9 Irritable bowel syndrome, unspecified; K57.90 Diverticulosis of intestine, part unspecified, without perforation or abscess without bleeding; K44.9 Diaphragmatic hernia without obstruction or gangrene; Z79.899 Other long term (current) drug therapy; Z79.82 Long term (current) use of aspirin; Z88.0 Allergy status to penicillin; Z90.49 Acquired absence of other specified parts of digestive tract; Z90.710 Acquired absence of both cervix and uterus; Z82.62 Family history of osteoporosis
CPT/HCPCS: 99285 ×2; 96374 ×2; 96375 ×6; 96361 ×9; 96376 ×4; 36415; 93005 ×2; 80053 ×2; 80048 ×2; 85652; 82150; 82550 ×4; 82553; 83605; 83690; 84484; 85025 ×2; 85610; 85730; 86140; 81003; 71046; 72125; 70450; 74177; 70553; G0378 ×5; J2060 ×3; J1200; J2765; J2930 ×2; J2405 ×2; J1885 ×2; C9113 ×2; A9581; Q9967; J2270

== ENCOUNTER 2019-02-20 16:02 | Inpatient (IN) | payer MEDICARE ==
[2019-02-20 17:29] LABS: Basophils # (A) 0.1 k/uL (0-0.2); Basophils % (A) 1 %; Eosinophils # (A) 0.1 k/uL (0-0.7); Eosinophils % (A) 1 %; HCT 45.7 % (34.0-46.0); Lymphocytes # (A) 1.2 k/uL (1.0-4.8); Lymphocytes % (A) 11 %; MCH 29.1 pg (25.0-35.0); MCHC 32.8 g/dL (31.0-37.0); MCV 88.8 fL (80.0-100.0); Mean Platelet Volume 6.5; Monocytes # (A) 0.6 k/uL (0-1.0); Monocytes % (A) 6 %; Neutrophils # (A) 8.7 k/uL (1.3-7.7); Neutrophils % (A) 81 %; Platelet Count 324 k/uL (150-450); RBC 5.15 m/uL (3.80-5.40); RDW 12.2 % (11.5-15.5); WBC 10.8 k/uL (3.8-10.6)
[2019-02-20] MEDS ORDERED: SODIUM CHLORIDE 0.9% 500 ML 500 ML IV STA (17:33)
[2019-02-20] MEDS ORDERED: PANTOPRAZOLE 40 MG/10 ML VIAL IVP ONE (17:33)
--- NOTE | 2019-02-20 17:34 | ED ---
General Adult HPI - General Chief complaint: GI Bleed Stated complaint: GI Bleed Time Seen by Provider: 02/20/19 17:20 Source: patient Mode of arrival: ambulatory Limitations: no limitations - History of Present Illness Initial comments: Dictation was produced using [employer] dictation software. please excuse any grammatical, word or spelling errors. Chief Complaint: 83-year-old female presents with abdominal pain and rectal bleeding. History of Present Illness: 83-year-old female she has past medical history dyslipidemia and hypertension. She presents today with rectal pressure, abdominal pain and rectal bleeding. Patient is having bowel movement earlier today when she noted bright red blood per rectum. Patient has any history of GI bleed in the past. Patient also has diffuse abdominal pain worse in the lower a bdominal suprapubic area. Patient's history of diverticulitis. Denies Constitutional symptoms. At some nausea however no vomiting. Denies any recent antibiotics. No recent travel. No recent camping. No concerns of food poisoning. The ROS documented in this emergency department record has been reviewed and confirmed by me. Those systems with pertinent positive or negative responses have been documented in the HPI. All other systems are other negative and/or noncontributory. PHYSICAL EXAM: General Impression: Alert and oriented x3, not in acute distress HEENT: Normocephalic atraumatic, extra-ocular movements intact, pupils equal and reactive to light bilaterally, mucous membranes moist. Cardiovascular: Heart regular rate and rhythm, S1&S2 audible, no murmurs, rubs or gallops Chest: Lungs clear to auscultation bilaterally, no rhonchi, no wheeze, no rales Abdomen: Diffuse abdominal tenderness worse in the left lower quadrant Musculoskeletal: Pulses present and equal in all extremities, no peripheral edema Motor: no focal deficits noted Neurological: CN II-XII grossly intact, no focal motor or sensory deficits noted Skin: Intact with no visualized rashes Psych: Normal affect and mood Rectal: No hemorrhoids, no fissures, no palpable masses with digital rectal exam ED course:-year-old female with chief complaint of abdominal pain, rectal pressure and GI bleed. Vital signs upon arrival are within acceptable limits.Laboratory evaluation obtained. Monocytosis 10.8. Coag panel unremarkable. Metabolic panel shows sodium 132. Rest metabolic panel is unremarkable. Patient is still call blood positive. Given patient's degree of symptoms CT abdomen and pelvis was obtained. There is also concern of diverticulitis. CT shows wall thickening of the proximal sigmoid colon suggesting colitis. No signs of diverticulitis. At this point there is concern for inflammatory bowel disease versus infectious colitis. Patient does not have any risk factors for infectious colitis of the lashes covered with Levaquin. She reevaluated with percent episodes of bright red blood per rectum. Given patient's degree of symptoms will have patient admitted with GI consultation. - Related Data Home Medications Medication Instructions Recorded Confirmed Lisinopril [Zestril] 10 mg PO DAILY 08/14/17 02/20/19 Pravastatin Sodium [Pravachol] 20 mg PO HS 08/14/17 02/20/19 Aspirin EC [Ecotrin Low Dose] 81 mg PO DAILY 02/20/19 02/20/19 Cyproheptadine [Cyproheptadine HCl] 4 mg PO TID 02/20/19 02/20/19 Gabapentin [Neurontin] 100 mg PO TID 02/20/19 02/20/19 L.acidoph,Paracasei, B.lactis 1 cap PO DAILY 02/20/19 02/20/19 [Probiotic] Multivitamins, Thera [Multivitamin 1 tab PO DAILY 02/20/19 02/20/19 (formulary)] Nitroglycerin Sl Tabs [Nitrostat] 0.4 mg SUBLINGUAL Q5M PRN 02/20/19 02/20/19 Omeprazole [PriLOSEC] 20 mg PO DAILY PRN 02/20/19 02/20/19 Ondansetron [Zofran] 4 - 8 mg PO Q8H PRN 02/20/19 02/20/19 Propranolol [Inderal] 40 mg PO BID 02/20/19 02/20/19 traMADol HCL 50 mg PO BID PRN 02/20/19 02/20/19 Previous Rx's Medication Instructions Recorded Dicyclomine [Bentyl] 10 mg PO TID #20 cap 08/16/17 Allergies Allergy/AdvReac Type Severity Reaction Status Date / Time Penicillins Allergy Swelling Verified 02/20/19 17:33 Review of Systems ROS Statement: Those systems with pertinent positive or pertinent negative responses have been documented in the HPI. ROS Other: All systems not noted in ROS Statement are negative. Past Medical History Past Medical History: Hyperlipidemia, Hypertension Additional Past Medical History / Comment(s): Migraines but has not had one in years, diverticulosis, small hiatal hernia, benign liver cyst. History of Any Multi-Drug Resistant Organisms: None Reported Past Surgical History: Appendectomy, Hysterectomy Additional Past Surgical History / Comment(s): EGD, colonoscopy, R shoulder arthroscopy Past Anesthesia/Blood Transfusion Reactions: No Reported Reaction Past Psychological History: No Psychological Hx Reported Smoking Status: Never smoker Past Alcohol Use History: None Reported Past Drug Use History: None Reported - Past Family History Father History Unknown: Yes Mother Additional Family Medical History / Comment(s): Mother had osteoporosis. She p assed away at the age of 69yrs, pt does not know cause of . General Exam Limitations: no limitations Course Vital Signs 02/20/19 02/20/19 02/20/19 16:25 17:27 18:30 Temperature 97.5 F L Pulse Rate 74 86 80 Respiratory 22 18 18 Rate Blood Pressure 143/76 152/80 127/93 O2 Sat by Pulse 99 99 99 Oximetry Medical Decision Making - Lab Data Result diagrams: 02/20/19 17:05 02/20/19 17:05 Lab Results 02/20/19 02/20/19 02/20/19 Range/Units 17:05 17:05 17:05 WBC 10.8 H (3.8-10.6) k/uL RBC 5.15 (3.80-5.40) m/uL Hgb 15.0 (11.4-16.0) gm/dL Hct 45.7 (34.0-46.0) % MCV 88.8 (80.0-100.0) fL MCH 29.1 (25.0-35.0) pg MCHC 32.8 (31.0-37.0) g/dL RDW 12.2 (11.5-15.5) % Plt Count 324 (150-450) k/uL Neutrophils % 81 % Lymphocytes % 11 % Monocytes % 6 % Eosinophils % 1 % Basophils % 1 % Neutrophils # 8.7 H (1.3-7.7) k/uL Lymphocytes # 1.2 (1.0-4.8) k/uL Monocytes # 0.6 (0-1.0) k/uL Eosinophils # 0.1 (0-0.7) k/uL Basophils # 0.1 (0-0.2) k/uL PT (9.0-12.0) sec INR (<1.2) APTT 28.3 (22.0-30.0) sec Sodium 132 L (137-145) mmol/L Potassium 4.6 (3.5-5.1) mmol/L Chloride 97 L (98-107) mmol/L Carbon Dioxide 22 (22-30) mmol/L Anion Gap 13 mmol/L BUN 17 (7-17) mg/dL Creatinine 0.87 (0.52-1.04) mg/dL Est GFR (CKD-EPI)AfAm 71 (>60 ml/min/1.73 sqM) Est GFR (CKD-EPI)NonAf 62 (>60 ml/min/1.73 sqM) Glucose 106 H (74-99) mg/dL Calcium 10.5 H (8.4-10.2) mg/dL Total Bilirubin 0.8 (0.2-1.3) mg/dL AST 28 (14-36) U/L ALT 22 (9-52) U/L Alkaline Phosphatase 66 (38-126) U/L Troponin I (0.000-0.034) ng/mL Total Protein 7.1 (6.3-8.2) g/dL Albumin 4.7 (3.5-5.0) g/dL Stool Occult Blood (Negative) 02/20/19 02/20/19 02/20/19 Range/Units 17:05 17:30 17:30 WBC (3.8-10.6) k/uL RBC (3.80-5.40) m/uL Hgb (11.4-16.0) gm/dL Hct (34.0-46.0) % MCV (80.0-100.0) fL MCH (25.0-35.0) pg MCHC (31.0-37.0) g/dL RDW (11.5-15.5) % Plt Count (150-450) k/uL Neutrophils % % Lymphocytes % % Monocytes % % Eosinophils % % Basophils % % Neutrophils # (1.3-7.7) k/uL Lymphocytes # (1.0-4.8) k/uL Monocytes # (0-1.0) k/uL Eosinophils # (0-0.7) k/uL Basophils # (0-0.2) k/uL PT 11.8 (9.0-12.0) sec INR 1.1 (<1.2) APTT (22.0-30.0) sec Sodium (137-145) mmol/L Potassium (3.5-5.1) mmol/L Chloride (98-107) mmol/L Carbon Dioxide (22-30) mmol/L Anion Gap mmol/L BUN (7-17) mg/dL Creatinine (0.52-1.04) mg/dL Est GFR (CKD-EPI)AfAm (>60 ml/min/1.73 sqM) Est GFR (CKD-EPI)NonAf (>60 ml/min/1.73 sqM) Glucose (74-99) mg/dL Calcium (8.4-10.2) mg/dL Total Bilirubin (0.2-1.3) mg/dL AST (14-36) U/L ALT (9-52) U/L Alkaline Phosphatase (38-126) U/L Troponin I <0.012 (0.000-0.034) ng/mL Total Protein (6.3-8.2) g/dL Albumin (3.5-5.0) g/dL Stool Occult Blood Positive H (Negative) Disposition Clinical Impression: GI bleed, Abdominal pain Disposition: ADMITTED IP TO THIS [facility] Condition: Fair Referrals: Yefri Martinez DO [Primary Care Provider] - 1-2 days Decision Time: 19:29
[2019-02-20 17:41] LABS: Albumin 4.7 g/dL (3.5-5.0); Calcium 10.5 mg/dL (8.4-10.2); Potassium 4.6 mmol/L (3.5-5.1); Total Bilirubin 0.8 mg/dL (0.2-1.3); Total Protein 7.1 g/dL (6.3-8.2)
[2019-02-20 17:43] LABS: INR 1.1 (<1.2); Prothrombin Time 11.8 sec (9.0-12.0)
--- NOTE | 2019-02-20 18:17 | CT ---
EXAMINATION TYPE: CT abdomen pelvis w con DATE OF EXAM: 02/20/2019 COMPARISON: 08/14/2017 HISTORY: Rectal bleeding CT DLP: 563.7 mGycm Automated exposure control for dose reduction was used. TECHNIQUE: Helical acquisition of images was performed from the lung bases through the pelvis. CONTRAST: Performed without Oral Contrast and with IV Contrast, patient injected with 100 mL of Isovue 300. FINDINGS: Lung bases are clear. There is no pleural effusion. Heart size is normal. Liver spleen pancreas gallbladder appear normal. Bile ducts are not dilated. Stomach appears normal. There is no adrenal mass. Kidneys show satisfactory contrast opacification. There is no hydronephrosi s. Ureters are not dilated. There is normal contrast excretion on the delayed images. There is no ret roperitoneal adenopathy. Abdominal aorta is atheromatous. Bladder distends smoothly. There is no ingu inal hernia. There is no free fluid in the pelvis. There are multiple sigmoid diverticula. There is m ild wall thickening of the sigmoid colon. There is hysterectomy. There is no mesenteric edema. There is no ascites or free air. There is no evidence of a bowel obstru ction. Lumbar spine is intact. There is no compression fracture. Bony pelvis appears intact. IMPRESSION: THERE IS WALL THICKENING OF THE PROXIMAL SIGMOID COLON THAT IS SUGGESTIVE OF NONSPECIFIC COLITIS THAT IS A CHANGE COMPARED TO OLD EXAM. THERE IS SIGMOID DIVERTICULOSIS.
[2019-02-20] MEDS ORDERED: LEVOFLOXACIN 750MG-D5W PMX 750 MG in DEXTROSE/WATER 1 150ML.BAG IVPB STA (19:22)
[2019-02-20] MEDS ORDERED: NALOXONE 0.4 MG/ML 1 ML VIAL IV PRN (19:23)
[2019-02-20] MEDS ORDERED: NITROGLYCERIN SL TABS 0.4 MG TAB SUBLINGUAL PRN (19:27)
[2019-02-20] MEDS: SODIUM CHLORIDE 0.9% 1,000 ML IV SCH (20:20)
[2019-02-20 21:21] VITALS: BMI 22.1
[2019-02-20] MEDS: MORPHINE SULFATE 4 MG/ML SYRINGE IV PRN (21:29)
[2019-02-20] MEDS: ONDANSETRON 4 MG/2 ML VIAL IVP PRN (21:34)
[2019-02-20] MEDS: CYPROHEPTADINE 4 MG TABLET PO SCH ×2 (21:36→21:51)
[2019-02-20] MEDS: PROPRANOLOL 40 MG TAB PO SCH (21:36)
[2019-02-20] MEDS: PRAVASTATIN SODIUM 20 MG TAB PO SCH (21:36)
[2019-02-20] MEDS: MELATONIN 5 MG TABLET PO PRN (21:41)
[2019-02-21 00:01] LABS: Basophils % (A) 0 %; Eosinophils # (A) 0.1 k/uL (0-0.7); Eosinophils % (A) 1 %; HCT 40.1 % (34.0-46.0); HGB 13.9 gm/dL (11.4-16.0); Lymphocytes # (A) 1.8 k/uL (1.0-4.8); Lymphocytes % (A) 22 %; MCH 30.8 pg (25.0-35.0); MCHC 34.6 g/dL (31.0-37.0); MCV 89.1 fL (80.0-100.0); Mean Platelet Volume 5.8; Monocytes # (A) 0.6 k/uL (0-1.0); Monocytes % (A) 8 %; Neutrophils # (A) 5.5 k/uL (1.3-7.7); Neutrophils % (A) 67 %; Platelet Count 270 k/uL (150-450); RDW 12.4 % (11.5-15.5); WBC 8.2 k/uL (3.8-10.6)
[2019-02-21] MEDS: MORPHINE SULFATE 4 MG/ML SYRINGE IV PRN ×4 (01:35→23:24)
[2019-02-21] MEDS: ACETAMINOPHEN TAB 325 MG TAB PO PRN (03:56)
[2019-02-21 07:15] LABS: Basophils # (A) 0.1 k/uL (0-0.2); Basophils % (A) 1 %; Eosinophils # (A) 0.1 k/uL (0-0.7); Eosinophils % (A) 2 %; HCT 38.4 % (34.0-46.0); HGB 13.1 gm/dL (11.4-16.0); Lymphocytes # (A) 1.6 k/uL (1.0-4.8); Lymphocytes % (A) 21 %; MCH 31.2 pg (25.0-35.0); MCHC 34.2 g/dL (31.0-37.0); MCV 91.1 fL (80.0-100.0); Mean Platelet Volume 5.9; Monocytes # (A) 0.7 k/uL (0-1.0); Monocytes % (A) 9 %; Neutrophils # (A) 4.8 k/uL (1.3-7.7); Neutrophils % (A) 64 %; Platelet Count 242 k/uL (150-450); RBC 4.21 m/uL (3.80-5.40); RDW 12.6 % (11.5-15.5); WBC 7.5 k/uL (3.8-10.6)
[2019-02-21] MEDS: SODIUM CHLORIDE 0.9% 1,000 ML IV SCH ×2 (08:20→20:19)
[2019-02-21] MEDS: PANTOPRAZOLE 40 MG/10 ML VIAL IV SCH (08:21)
[2019-02-21] MEDS: CYPROHEPTADINE 4 MG TABLET PO SCH (08:26)
[2019-02-21] MEDS ORDERED: LISINOPRIL 10 MG TAB PO SCH (09:00)
[2019-02-21] MEDS: PROPRANOLOL 40 MG TAB PO SCH ×2 (09:46→20:18)
--- NOTE | 2019-02-21 12:38 | P.CONS ---
History of Present Illness - Reason for Consult Consult date: 02/21/19 GI bleed Requesting physician: Eve Sinha - Chief Complaint Rectal bleeding abdominal pain - History of Present Illness 83-year-old female with a history of colonic diverticulosis last colonoscopy possibly 7-10 yrs ago performed by Dr. Sterling admitted with acute severe ab dominal cramping that started the other day with multiple episodes of gross bloody bright burgundy bowel movements. Patient's last bloody bowel movement was this morning around 8 AM. She has a history of Clostridium difficile 2. Denies fever chills hematemesis or melena. Abdominal pain centered mostly on the left lower quadrant but does radiate to the bilateral lower quadrants. CT abdomen and pelvis reported wall thickening of the proximal sigmoid colon suggestive of nonspecific colitis with sigmoid diverticulosis. No free air or obstruction. No recent antibiotics. History of GI bleed. No NSAIDs or antiplatelet medications. No weight loss. Admission hemoglobin 15 present 13.1. MCV 88. White count 10.8 presently 7.5. INR 1.1. BUN 17. Creatinine 0.8. FOBT positive. Review of Systems Constitutional: Denies fever, chills, sweats, weight gain, or loss. HEENT: Negative for migraines, blurred vision or loss, earaches, drainage, tinnitus, oral mucosal lesions, dysphagia, or odynophagia. CARDIAC: Negative for chest pain, arrhythmias, or palpitation. RESPIRATORY: Negative for shortness of breath, hemoptysis, cough, or sputum production. GI: See HPI for pertinent findings. : Negative for hematuria, urgency, frequency, polyuria, or dysuria. GYNc: Denies possibility of . Negative vaginal discharge. MUSCULOSKELETAL: Negative for muscle aches, swelling, arthritis, and arthralgias. NEUROLOGIC: Negative for stroke or TIA. ENDOCRINE: Negative for thyroid problems. SKIN: Negative for rash or itching. PSYCHIATRIC: Negative history for depression and anxiety Past Medical History Past Medical History: Hyperlipidemia Additional Past Medical History / Comment(s): diverticulosis, small hiatal hernia, benign liver cyst. History of Any Multi-Drug Resistant Organisms: None Reported Past Surgical History: Appendectomy, Hysterectomy Additional Past Surgical History / Comment(s): EGD, colonoscopy, R shoulder arthroscopy Past Anesthesia/Blood Transfusion Reactions: No Reported Reaction Past Psychological History: No Psychological Hx Reported Additional Psychological History / Comment(s): Pt resides with her spouse. She is independent. Smoking Status: Never smoker Past Alcohol Use History: None Reported Past Drug Use History: None Reported - Past Family History Father History Unknown: Yes Mother Additional Family Medical History / Comment(s): Mother had osteoporosis. She at the age of 69yrs, pt does not know cause of . Medications and Allergies Home Medications Medication Instructions Recorded Confirmed Type Lisinopril [Zestril] 10 mg PO DAILY 08/14/17 02/20/19 History Pravastatin Sodium [Pravachol] 20 mg PO HS 08/14/17 02/20/19 History Dicyclomine [Bentyl] 10 mg PO TID #20 cap 08/16/17 02/20/19 Rx Aspirin EC [Ecotrin Low Dose] 81 mg PO DAILY 02/20/19 02/20/19 History Gabapentin [Neurontin] 100 mg PO TID 02/20/19 02/20/19 History L.acidoph,Paracasei, B.lactis 1 cap PO DAILY 02/20/19 02/20/19 History [Probiotic] Multivitamins, Thera [Multivitamin 1 tab PO DAILY 02/20/19 02/20/19 History (formulary)] Nitroglycerin Sl Tabs [Nitrostat] 0.4 mg SUBLINGUAL Q5M PRN 02/20/19 02/20/19 History Omeprazole [PriLOSEC] 20 mg PO DAILY PRN 02/20/19 02/20/19 History Ondansetron [Zofran] 4 - 8 mg PO Q8H PRN 02/20/19 02/20/19 History Propranolol [Inderal] 40 mg PO BID 02/20/19 02/20/19 History traMADol HCL 50 mg PO BID PRN 02/20/19 02/20/19 History Allergies Allergy/AdvReac Type Severity Reaction Status Date / Time Penicillins Allergy Swelling Verified 02/20/19 17:33 Physical Exam Vitals: Vital Signs Temp Pulse Pulse Resp BP BP BP 02/21/19 09:44 95/59 02/21/19 08:00 97.5 F L 78 16 130/82 02/21/19 03:50 97.7 F 74 16 108/60 02/21/19 00:00 98 F 71 18 154/79 02/20/19 21:14 98.2 F 82 18 184/82 02/20/19 20:29 98.9 F 81 20 145/68 02/20/19 19:36 88 20 127/67 02/20/19 18:30 80 18 127/93 02/20/19 17:27 86 18 152/80 02/20/19 16:25 97.5 F L 74 22 143/76 Pulse Ox 02/21/19 09:44 02/21/19 08:00 97 02/21/19 03:50 98 02/21/19 00:00 97 02/20/19 21:14 96 02/20/19 20:29 99 02/20/19 19:36 99 02/20/19 18:30 99 02/20/19 17:27 99 02/20/19 16:25 99 Intake and Output 02/20/19 02/21/19 02/21/19 22:59 06:59 14:59 Other: Voiding Method Toilet # Voids 1 3 1 # Bowel Movements 1 1 1 Weight 54.885 kg 54.4 kg General appearance: The patient is alert, oriented, in no acute distress. HET: Head is normocephalic and atraumatic. Pupils are equal and reactive. Oropharynx is clear without lesions. Neck: Supple without lymphadenopathy. Trachea midline. Heart: S1 S2. Regular rate and rhythm. Lungs: No crackles or wheezes are heard. Abdomen: Soft, mildly bloated tenderness to the left lower quadrant with bowel sounds. No peritoneal signs. No palpable organomegaly or masses. Extremities: Normal skin color and turgor. No cyanosis, rash, ulceration, clubbing, or edema. Radial and pedal pulses are 2/4 bilaterally. Neurological: No focal deficits. Strength and sensation are grossly intact. Results CBC & Chem 7: 02/21/19 06:41 02/20/19 17:05 Labs: Abnormal Lab Results - Last 24 Hours (Table) 02/20/19 02/20/19 02/20/19 Range/Units 17:05 17:05 17:30 WBC 10.8 H (3.8-10.6) k/uL Neutrophils # 8.7 H (1.3-7.7) k/uL Sodium 132 L (137-145) mmol/L Chloride 97 L (98-107) mmol/L Glucose 106 H (74-99) mg/dL Calcium 10.5 H (8.4-10.2) mg/dL Stool Occult Blood Positive H (Negative) CT scan - abdomen: report reviewed (Dr. Cohen) Assessment and Plan (1) Abdominal pain Narrative/Plan: Acute severe crampy abdominal pain bilateral lower abdomen left lower quadrant with gross bloody diarrhea suspect acute ischemic colitis superimposed colonic diverticular bleed possible infectious colitis cannot be excluded. History of C. diff 2. Current Visit: Yes Status: Acute Code(s): R10.9 - UNSPECIFIED ABDOMINAL PAIN SNOMED Code(s): 74067131 (2) Colitis Current Visit: Yes Status: Acute Code(s): K52.9 - NONINFECTIVE GASTROENTERITIS AND COLITIS, UNSPECIFIED SNOMED Code(s): 72829763 (3) Colon, diverticulosis Current Visit: Yes Status: Acute Code(s): K57.30 - DVRTCLOS OF LG INT W/O PERFORATION OR ABSCESS W/O BLEEDING SNOMED Code(s): 811624384 (4) History of Clostridium difficile colitis Current Visit: Yes Status: Acute Code(s): Z86.19 - PERSONAL HISTORY OF OTHER INFECTIOUS AND PARASITIC DISEASES SNOMED Code(s): 816667902 Plan: 1. Nothing by mouth except medications ice chips popsicles. 2. CBC monitoring. Clostridium difficile testing. 3. CRP in a.m. IV antibiotics Levaquin 500 mg daily Flagyl 500 mg every 8 hours. Outpatient versus inpatient colonoscopy was discussed we'll determine based on clinical course. 4. GI prophylaxis IV Protonix 40 mg daily. We'll follow closely with you. Thank you for this kind referral and the opportunity to participate in the care of your patient. This consultation was discussed with Dr. Cohen. The impression and plan of care have been directed as dictated.
[2019-02-21] MEDS: metroNIDAZOLE-NS PMX 500 MG in SALINE 1 100ML.BAG IVPB SCH ×2 (16:11→23:25)
[2019-02-21] MEDS: LISINOPRIL 10 MG TAB PO SCH (20:18)
[2019-02-21] MEDS: PRAVASTATIN SODIUM 20 MG TAB PO SCH (20:18)
[2019-02-21] MEDS ORDERED: LEVOFLOXACIN 500MG-D5W PMX 500 MG in DEXTROSE/WATER 1 100ML.BAG IVPB SCH (21:00)
[2019-02-21] MEDS: MELATONIN 5 MG TABLET PO PRN (23:23)
--- NOTE | 2019-02-22 00:18 | P.HPIM ---
History of Present Illness H&P Date: 02/21/19 Chief Complaint: Abdominal pain Patient is a 83-year-old female with a known history of hyperlipidemia, history of diverticulosis, previous history of C. diff infection 2 came to ER with complaints of abdominal pain and bright red blood per rectum. Patient was noted to have bright red blood and she had a bowel movement yesterday. Patient had previous history of rectal bleeding and had colonoscopy 7-10 years ago. Abdominal pain is mainly left lower quadrant and in the lower abdomen suprapubic area. Denied any dysuria or hematuria. Patient has been afebrile. Denied any recent antibiotic use. No recent diarrhea. CT of the abdominal pelvis showed wall thickening of the proximal sigmoid colon suggestive of nonspecific colitis with sigmoid diverticulosis. hemoglobin 15 on admission, present 13.1. MCV 88. White count 10.8 presently 7.5. INR 1.1. BUN 17. Creatinine 0.8. FOBT positive. Review of Systems Constitutional: Patient denies any fever or chills . No generalized weakness or weight loss. Abdomen: Patient denied nausea vomiting and diarrhea and abdominal pain. Rectal bleeding. Cardiovascular: Patient denies any chest pain or short of breath no palpitations. Respiratory: patient denied any cough is from production. No shortness of breath Neurologic: Patient denied any numbness or tingling headache. Musculoskeletal: Patient denies any complaints of joint swelling or deformity. Skin: Negative Psychiatric: Negative Endocrine: No heat or cold intolerance. No recent weight gain. Genitourinary: No dysuria or hematuria. All other 14 point ROS negative except the above Past Medical History Past Medical History: Hyperlipidemia Additional Past Medical History / Comment(s): diverticulosis, small hiatal hernia, benign liver cyst. History of Any Multi-Drug Resistant Organisms: None Reported Past Surgical History: Appendectomy, Hysterectomy Additional Past Surgical History / Comment(s): EGD, colonoscopy, R shoulder arthroscopy Past Anesthesia/Blood Transfusion Reactions: No Reported Reaction Past Psychological History: No Psychological Hx Reported Additional Psychological History / Comment(s): Pt resides with her spouse. She is independent. Smoking Status: Never smoker Past Alcohol Use History: None Reported Past Drug Use History: None Reported - Past Family History Father History Unknown: Yes Mother Additional Family Medical History / Comment(s): Mother had osteoporosis. She at the age of 69yrs, pt does not know cause of . Medications and Allergies Home Medications Medication Instructions Recorded Confirmed Type Lisinopril [Zestril] 10 mg PO DAILY 08/14/17 02/20/19 History Pravastatin Sodium [Pravachol] 20 mg PO HS 08/14/17 02/20/19 History Dicyclomine [Bentyl] 10 mg PO TID #20 cap 08/16/17 02/20/19 Rx Aspirin EC [Ecotrin Low Dose] 81 mg PO DAILY 02/20/19 02/20/19 History Gabapentin [Neurontin] 100 mg PO TID 02/20/19 02/20/19 History L.acidoph,Paracasei, B.lactis 1 cap PO DAILY 02/20/19 02/20/19 History [Probiotic] Multivitamins, Thera [Multivitamin 1 tab PO DAILY 02/20/19 02/20/19 History (formulary)] Nitroglycerin Sl Tabs [Nitrostat] 0.4 mg SUBLINGUAL Q5M PRN 02/20/19 02/20/19 History Omeprazole [PriLOSEC] 20 mg PO DAILY PRN 02/20/19 02/20/19 History Ondansetron [Zofran] 4 - 8 mg PO Q8H PRN 02/20/19 02/20/19 History Propranolol [Inderal] 40 mg PO BID 02/20/19 02/20/19 History traMADol HCL 50 mg PO BID PRN 02/20/19 02/20/19 History Allergies Allergy/AdvReac Type Severity Reaction Status Date / Time Penicillins Allergy Swelling Verified 02/20/19 17:33 Physical Exam Vitals: Vital Signs Temp Pulse Pulse Resp BP BP BP 02/21/19 09:44 95/59 02/21/19 08:00 97.5 F L 78 16 130/82 02/21/19 03:50 97.7 F 74 16 108/60 02/21/19 00:00 98 F 71 18 154/79 02/20/19 21:14 98.2 F 82 18 184/82 02/20/19 20:29 98.9 F 81 20 145/68 02/20/19 19:36 88 20 127/67 02/20/19 18:30 80 18 127/93 02/20/19 17:27 86 18 152/80 02/20/19 16:25 97.5 F L 74 22 143/76 Pulse Ox 02/21/19 09:44 02/21/19 08:00 97 02/21/19 03:50 98 02/21/19 00:00 97 02/20/19 21:14 96 02/20/19 20:29 99 02/20/19 19:36 99 02/20/19 18:30 99 02/20/19 17:27 99 02/20/19 16:25 99 Intake and Output 02/20/19 02/21/19 02/21/19 22:59 06:59 14:59 Other: Voiding Method Toilet # Voids 1 3 1 # Bowel Movements 1 1 1 Weight 54.885 kg 54.4 kg PHYSICAL EXAMINATION: Patient is lying in the bed comfortably, no acute distress, awake alert and orie nted.. HEENT: Normocephalic. Neck is supple. Pupils reactive. Nostrils clear. Oral cavity is moist. Ears reveal no drainage. Neck reveals no JVD, carotid bruits, or thyromegaly. CHEST EXAMINATION: Trachea is central. Symmetrical expansion. Lung wesley clear to auscultation and percussion. CARDIAC: Normal S1, S2 with no gallops. No murmurs ABDOMEN: Soft. Mild lower quadrant tenderness. No guarding no rigidity. Bowel sounds normal. No organomegaly. No abdominal bruits. Extremities: reveal no edema. No clubbing or cyanosis Neurologically awake, alert, oriented x3 with well-coordinated movements. No focal deficits noted Skin: No rash or skin lesions. Psychiatric: Coperative. Nonsuicidal Musculoskeletal: No joint swelling or deformity. Normal range of motion. Results CBC & Chem 7: 02/21/19 06:41 02/20/19 17:05 Labs: Abnormal Lab Results - Last 24 Hours (Table) 02/20/19 02/20/19 02/20/19 Range/Units 17:05 17:05 17:30 WBC 10.8 H (3.8-10.6) k/uL Neutrophils # 8.7 H (1.3-7.7) k/uL Sodium 132 L (137-145) mmol/L Chloride 97 L (98-107) mmol/L Glucose 106 H (74-99) mg/dL Calcium 10.5 H (8.4-10.2) mg/dL Stool Occult Blood Positive H (Negative) Thrombosis Risk Factor Assmnt - DVT/VTE Prophylaxis DVT/VTE Prophylaxis: Pharmacologic Prophylaxis ordered Assessment and Plan Assessment: Bright red blood per rectum with abdominal pain likely could be due to diverticular bleed versus infectious/ischemic colitis Mild acute blood loss anemia History of C. diff colitis 2 History of diverticulosis Hyperlipidemia DVT prophylaxis with SCDs Small hiatal hernia Previous history of EGD and colonoscopy 7-8 years ago Plan: Patient continued on IV hydration and PPI. Monitor H&H. Continue with antibiotics- Levaquin and Flagyl. C. diff toxin is negative. GI is following. Further recommendations based on the clinical course. Time with Patient: Greater than 30
[2019-02-22] MEDS: ONDANSETRON 4 MG/2 ML VIAL IVP PRN (04:30)
[2019-02-22 06:37] LABS: Basophils % (A) 0 %; Eosinophils # (A) 0.2 k/uL (0-0.7); Eosinophils % (A) 3 %; HCT 35.2 % (34.0-46.0); HGB 11.9 gm/dL (11.4-16.0); Lymphocytes # (A) 1.5 k/uL (1.0-4.8); Lymphocytes % (A) 26 %; MCHC 33.8 g/dL (31.0-37.0); MCV 91.7 fL (80.0-100.0); Mean Platelet Volume 6.3; Monocytes # (A) 0.4 k/uL (0-1.0); Monocytes % (A) 8 %; Neutrophils # (A) 3.4 k/uL (1.3-7.7); Neutrophils % (A) 61 %; Platelet Count 210 k/uL (150-450); RBC 3.84 m/uL (3.80-5.40); RDW 12.7 % (11.5-15.5); WBC 5.6 k/uL (3.8-10.6)
[2019-02-22] MEDS: SODIUM CHLORIDE 0.9% 1,000 ML IV SCH (08:22)
[2019-02-22] MEDS: metroNIDAZOLE-NS PMX 500 MG in SALINE 1 100ML.BAG IVPB SCH ×3 (08:23→23:17)
[2019-02-22] MEDS: ACETAMINOPHEN TAB 325 MG TAB PO PRN ×3 (08:23→23:17)
[2019-02-22] MEDS: PANTOPRAZOLE 40 MG/10 ML VIAL IV SCH (08:23)
[2019-02-22] MEDS: PROPRANOLOL 40 MG TAB PO SCH ×2 (08:25→20:04)
--- NOTE | 2019-02-22 14:16 | CONS ---
CONSULTATION DATE OF SERVICE: 02/22/2019 The patient is an 83-year-old pleasant white female admitted to the hospital with acute lower abdominal pain followed by bloody diarrhea that started 2 days ago. She had several episodes of bright red blood per rectum and her last episode was around midnight. She still has some lower abdominal pain, but overall she is feeling much better. No nausea, vomiting. Presently remains n.p.o. She reports no fever, chills, night sweats. Never had these symptoms in the past. Her last colonoscopy was about 7- 10 years ago which was normal. PHYSICAL EXAMINATION: She appears comfortable. No apparent distress. VITAL SIGNS: Stable. Blood pressure is 183/49, pulse rate 80, temperature 98.5. HEENT examination unremarkable. Conjunctivae pink. Sclerae anicteric. Oral cavity, no lesions. NECK: No JVD. No lymph node enlargement. CHEST: Clear to auscultation. HEART: Regular rate and rhythm. ABDOMEN: Soft. Bowel sounds are positive. Mild tenderness in the lower abdominal area, mostly in the left lower quadrant area. EXTREMITIES: No pedal edema. SKIN: No rashes. NEUROLOGIC: Alert and oriented x3. No focal deficits. LABS: From today WBC 5.6, hemoglobin 11.9, platelets are normal. IMPRESSION: Acute lower abdominal pain followed by bloody diarrhea of 2 days duration. Clinical picture is consistent with acute ischemic colitis. CT of the abdomen did show thickening of the transverse colon and descending colon consistent with acute colitis. Presently on empiric antibiotics. Hemoglobin remains stable. No further episodes of bleeding for the last 12 hours. RECOMMENDATIONS: 1. Start on clear liquid diet. 2. Continue with broad-spectrum antibiotics. 3. No plans for any endoscopy intervention at the present time. 4. If her symptoms continue to improve, we can advance diet as tolerated and hopefully discharge home in 1-2 days. Thank you for this consultation. MMODL / IJN: [id number] /
[2019-02-22] MEDS: PRAVASTATIN SODIUM 20 MG TAB PO SCH (20:04)
[2019-02-22] MEDS: LISINOPRIL 10 MG TAB PO SCH (20:04)
[2019-02-22] MEDS: LEVOFLOXACIN 250MG-D5W PMX 250 MG in DEXTROSE/WATER 1 50ML.BAG IVPB SCH (20:33)
[2019-02-22] MEDS: MELATONIN 5 MG TABLET PO PRN (23:16)
--- NOTE | 2019-02-22 23:38 | P.PN ---
Subjective Progress Note Date: 02/22/19 Principal diagnosis: Colitis Patient is a 83-year-old female with a known history of hyperlipidemia, history of diverticulosis, previous history of C. diff infection 2 came to ER with complaints of abdominal pain and bright red blood per rectum. Patient was noted to have bright red blood and she had a bowel movement yesterday. Patient had previous history of rectal bleeding and had colonoscopy 7-10 years ago. Abdominal pain is mainly left lower quadrant and in the lower abdomen suprapubic area. Denied any dysuria or hematuria. Patient has been afebrile. Denied any recent antibiotic use. No recent diarrhea. CT of the abdominal pelvis showed wall thickening of the proximal sigmoid colon suggestive of nonspecific colitis with sigmoid diverticulosis. hemoglobin 15 on admission, present 13.1. MCV 88. White count 10.8 presently 7.5. INR 1.1. BUN 17. Creatinine 0.8. FOBT positive. 02/22/2019 Patient says that her abdominal pain is better today. Denied any blood in the bowel movement. Patient is able to get up and walk to the bathroom. Patient is weak and on Levaquin and Flagyl. GI following. C. diff is negative. Patient is afebrile and saturating well on room air. Current medications reviewed. Objective - Vital Signs Vital signs: Vital Signs Temp 98.5 F 02/22/19 08:18 Pulse 83 02/22/19 08:18 Resp 16 02/22/19 08:18 BP 99/63 02/22/19 08:18 Pulse Ox 95 02/22/19 08:18 Intake & Output 02/21/19 02/22/19 02/22/19 18:59 06:59 18:59 Intake Total 640 240 Balance 640 240 Weight 55.8 kg Intake: IV 640 Sodium Chloride 0.9% 1, 640 000 ml @ 80 mls/hr IV . [id number] EUNICE Rx#:[id number] Oral 0 240 Other: Voiding Method Toilet Toilet Toilet # Voids 1 2 1 # Bowel Movements 1 1 - Exam PHYSICAL EXAMINATION: Patient is lying in the bed comfortably, no acute distress, awake alert and oriented.. HEENT: Normocephalic. Neck is supple. Pupils reactive. Nostrils clear. Oral cavity is moist. Ears reveal no drainage. Neck reveals no JVD, carotid bruits, or thyromegaly. CHEST EXAMINATION: Trachea is central. Symmetrical expansion. Lung wesley clear to auscultation and percussion. CARDIAC: Normal S1, S2 with no gallops. No murmurs ABDOMEN: Soft. Bowel sounds normal. No organomegaly. No abdominal bruits. Extremities: reveal no edema. No clubbing or cyanosis Neurologically awake, alert, oriented x3 with well-coordinated movements. No focal deficits noted Skin: No rash or skin lesions. Psychiatric: Coperative. Nonsuicidal Musculoskeletal: No joint swelling or deformity. Normal range of motion. - Labs CBC & Chem 7: 02/22/19 06:15 02/20/19 17:05 Labs: Abnormal Lab Results - Last 24 Hours (Table) 02/22/19 Range/Units 06:15 C-Reactive Protein 54.1 H (<10.0) mg/L Microbiology - Last 24 Hours (Table) 02/20/19 20:15 Blood Culture - Preliminary Blood No Growth after 24 hours Assessment and Plan Assessment: Bright red blood per rectum with abdominal pain likely could be due to di verticular bleed versus infectious/ischemic colitis Mild acute blood loss anemia History of C. diff colitis 2 History of diverticulosis Hyperlipidemia DVT prophylaxis with SCDs Small hiatal hernia Previous history of EGD and colonoscopy 7-8 years ago Plan: Patient continued on IV hydration and PPI. Monitor H&H. Continue with antibiotics- Levaquin and Flagyl. C. diff toxin is negative. GI is following. Further recommendations based on the clinical course. Time with Patient: Greater than 30
[2019-02-23] MEDS: SODIUM CHLORIDE 0.9% 1,000 ML IV SCH ×2 (06:26→08:27)
[2019-02-23] MEDS: ACETAMINOPHEN TAB 325 MG TAB PO PRN ×2 (06:26→22:49)
[2019-02-23 07:01] LABS: Basophils # (A) 0.1 k/uL (0-0.2); Basophils % (A) 1 %; Eosinophils # (A) 0.3 k/uL (0-0.7); Eosinophils % (A) 6 %; HCT 38.4 % (34.0-46.0); HGB 12.8 gm/dL (11.4-16.0); Lymphocytes # (A) 1.4 k/uL (1.0-4.8); Lymphocytes % (A) 29 %; MCH 30.6 pg (25.0-35.0); MCHC 33.4 g/dL (31.0-37.0); MCV 91.7 fL (80.0-100.0); Mean Platelet Volume 5.9; Monocytes # (A) 0.4 k/uL (0-1.0); Monocytes % (A) 7 %; Neutrophils # (A) 2.7 k/uL (1.3-7.7); Neutrophils % (A) 55 %; Platelet Count 246 k/uL (150-450); RBC 4.19 m/uL (3.80-5.40); RDW 12.5 % (11.5-15.5)
[2019-02-23 07:25] LABS: African American GFR (CKD) >90 (>60 ml/min/1.73 sqM); Anion Gap 13 mmol/L; Blood Urea Nitrogen 6 mg/dL (7-17); Calcium 8.7 mg/dL (8.4-10.2); Carbon Dioxide 17 mmol/L (22-30); Chloride 109 mmol/L (98-107); Glucose 68 mg/dL (74-99); Potassium 4.4 mmol/L (3.5-5.1); Sodium 139 mmol/L (137-145)
[2019-02-23] MEDS: PANTOPRAZOLE 40 MG/10 ML VIAL IV SCH (08:24)
[2019-02-23] MEDS: ONDANSETRON 4 MG/2 ML VIAL IVP PRN (08:24)
[2019-02-23] MEDS: PROPRANOLOL 40 MG TAB PO SCH ×2 (08:24→21:32)
[2019-02-23] MEDS: metroNIDAZOLE-NS PMX 500 MG in SALINE 1 100ML.BAG IVPB SCH ×3 (08:26→22:53)
--- NOTE | 2019-02-23 11:32 | PN ---
PROGRESS NOTE DATE OF SERVICE: February 23 Patient is an 83-year-old pleasant white female admitted to the hospital with acute onset of lower abdominal pain followed by bloody diarrhea of [address] scan showed evidence of acute left-sided colitis. She is being treated for possible acute ischemic colitis and infectious colitis and presently on empiric antibiotics. She is gradually improving. Abdominal pain has decreased, on clear liquid diet, tolerating well. Bleeding has completely subsided. PHYSICAL EXAMINATION: Appears comfortable in no apparent distress. Vital signs stable. Blood pressure 130/63, pulse rate 85, temperature 97.9. HEENT examination unremarkable. Conjunctivae pink. Sclerae anicteric. Oral cavity no lesions. Neck no JVD or lymph node enlargement. Chest was clear to auscultation. HEART: Regular rate and rhythm. ABDOMEN: Soft. There was mild tenderness in the left lower quadrant area. Bowel sounds are positive. EXTREMITIES: No pedal edema. Skin no rashes. NEUROLOGIC: Alert and oriented x3. No focal deficits. LABS: WBC 5, hemoglobin 12.8, platelets are normal. Basic metabolic panel is within normal limits. IMPRESSION: Acute onset of lower abdominal pain with bloody diarrhea, possible ischemic colitis, gradually improving on empiric antibiotics for the last [address] scan showed left- sided colitis. Hemoglobin stable at 12.8 g/dL. RECOMMENDATIONS: 1. Continue with a clear liquid diet today. 2. CBC tomorrow morning. 3. Continue with empiric antibiotics. 4. No plans on any endoscopy intervention. 5. We will follow her closely during hospital stay. Thank you for this consultation. MMODL / IJN: [id number] /
[2019-02-23] MEDS: LEVOFLOXACIN 250MG-D5W PMX 250 MG in DEXTROSE/WATER 1 50ML.BAG IVPB SCH (21:31)
[2019-02-23] MEDS: LISINOPRIL 10 MG TAB PO SCH (21:32)
[2019-02-23] MEDS: PRAVASTATIN SODIUM 20 MG TAB PO SCH (21:32)
[2019-02-23] MEDS: MELATONIN 5 MG TABLET PO PRN (22:49)
--- NOTE | 2019-02-23 23:38 | P.PN ---
Subjective Progress Note Date: 02/23/19 Principal diagnosis: Colitis Patient is a 83-year-old female with a known history of hyperlipidemia, history of diverticulosis, previous history of C. diff infection 2 came to ER with complaints of abdominal pain and bright red blood per rectum. Patient was noted to have bright red blood and she had a bowel movement yesterday. Patient had previous history of rectal bleeding and had colonoscopy 7-10 years ago. Abdominal pain is mainly left lower quadrant and in the lower abdomen suprapubic area. Denied any dysuria or hematuria. Patient has been afebrile. Denied any recent antibiotic use. No recent diarrhea. CT of the abdominal pelvis showed wall thickening of the proximal sigmoid colon suggestive of nonspecific colitis with sigmoid diverticulosis. hemoglobin 15 on admission, present 13.1. MCV 88. White count 10.8 presently 7.5. INR 1.1. BUN 17. Creatinine 0.8. FOBT positive. 02/22/2019 Patient says that her abdominal pain is better today. Denied any blood in the bowel movement. Patient is able to get up and walk to the bathroom. Patient is weak and on Levaquin and Flagyl. GI following. C. diff is negative. Patient is afebrile and saturating well on room air. 02/23/2019 Patient is improving clinically. No complaints of abdominal pain. No nausea vomiting. Currently tolerating liquid diet and is being advanced. No evidence of further bleeding per rectum. Continued on IV antibiotics. Anticipate discharge next 24 hours. Current medications reviewed. Objective - Vital Signs Vital signs: Vital Signs Temp 97.7 F 02/23/19 11:21 Pulse 72 02/23/19 15:54 Resp 16 02/23/19 15:54 BP 127/63 02/23/19 11:21 Pulse Ox 97 02/23/19 11:21 Intake & Output 02/22/19 02/23/19 02/23/19 18:59 06:59 18:59 Intake Total 530 120 740 Balance 530 120 740 Weight 56.1 kg Intake: IV 30 640 Invasive Line 1 10 Invasive Line 2 20 Sodium Chloride 0.9% 1, 640 000 ml @ 80 mls/hr IV . [id number] [facility] Rx#:[id number] Intake, IV Titration 100 Amount metroNIDAZOLE-NS PMX 500 100 mg In Saline 1 100ml.bag @ 100 mls/hr IVPB Q8HR [facility] Rx#:[id number] Oral 500 120 Other: Voiding Method Toilet Toilet Toilet # Voids 1 1 - Exam PHYSICAL EXAMINATION: Patient is lying in the bed comfortably, no acute distress, awake alert and oriented.. HEENT: Normocephalic. Neck is supple. Pupils reactive. Nostrils clear. Oral cavity is moist. Ears reveal no drainage. Neck reveals no JVD, carotid bruits, or thyromegaly. CHEST EXAMINATION: Trachea is central. Symmetrical expansion. Lung wesley clear to auscultation and percussion. CARDIAC: Normal S1, S2 with no gallops. No murmurs ABDOMEN: Soft. Bowel sounds normal. No organomegaly. No abdominal bruits. Extremities: reveal no edema. No clubbing or cyanosis Neurologically awake, alert, oriented x3 with well-coordinated movements. No focal deficits noted Skin: No rash or skin lesions. Psychiatric: Coperative. Nonsuicidal Musculoskeletal: No joint swelling or deformity. Normal range of motion. - Labs CBC & Chem 7: 02/23/19 06:33 02/23/19 06:33 Labs: Abnormal Lab Results - Last 24 Hours (Table) 02/23/19 Range/Units 06:33 Chloride 109 H (98-107) mmol/L Carbon Dioxide 17 L (22-30) mmol/L BUN 6 L (7-17) mg/dL Glucose 68 L (74-99) mg/dL Microbiology - Last 24 Hours (Table) 02/20/19 20:15 Blood Culture - Preliminary Blood No Growth after 48 hours Assessment and Plan Assessment: Bright red blood per rectum with abdominal pain likely could be due to diverticular bleed versus infectious/ischemic colitis Mild acute blood loss anemia History of C. diff colitis 2 History of diverticulosis Hyperlipidemia DVT prophylaxis with SCDs Small hiatal hernia Previous history of EGD and colonoscopy 7-8 years ago Plan: Patient continued on IV hydration and PPI. Monitor H&H. Continue with anti biotics- Levaquin and Flagyl. C. diff toxin is negative. GI is following. Further recommendations based on the clinical course.
[2019-02-24] MEDS: SODIUM CHLORIDE 0.9% 1,000 ML IV SCH ×3 (06:28→23:15)
[2019-02-24] MEDS: PANTOPRAZOLE 40 MG TABLET PO SCH (06:31)
[2019-02-24 06:46] LABS: HCT 38.3 % (34.0-46.0); HGB 12.9 gm/dL (11.4-16.0); MCH 30.8 pg (25.0-35.0); MCHC 33.8 g/dL (31.0-37.0); MCV 91.3 fL (80.0-100.0); Mean Platelet Volume 6.1; Platelet Count 254 k/uL (150-450); RDW 12.6 % (11.5-15.5)
[2019-02-24] MEDS: ONDANSETRON 4 MG/2 ML VIAL IVP PRN ×2 (08:01→23:03)
[2019-02-24] MEDS: ACETAMINOPHEN TAB 325 MG TAB PO PRN (08:02)
[2019-02-24] MEDS: PROPRANOLOL 40 MG TAB PO SCH ×2 (08:02→20:50)
[2019-02-24] MEDS: metroNIDAZOLE-NS PMX 500 MG in SALINE 1 100ML.BAG IVPB SCH ×3 (08:03→23:01)
--- NOTE | 2019-02-24 15:46 | P.PN ---
Subjective Progress Note Date: 02/24/19 Principal diagnosis: Colitis Patient is a 83-year-old female with a known history of hyperlipidemia, history of diverticulosis, previous history of C. diff infection 2 came to ER with complaints of abdominal pain and bright red blood per rectum. Patient was noted to have bright red blood and she had a bowel movement yesterday. Patient had previous history of rectal bleeding and had colonoscopy 7-10 years ago. Abdominal pain is mainly left lower quadrant and in the lower abdomen suprapubic area. Denied any dysuria or hematuria. Patient has been afebrile. Denied any recent antibiotic use. No recent diarrhea. CT of the abdominal pelvis showed wall thickening of the proximal sigmoid colon suggestive of nonspecific colitis with sigmoid diverticulosis. hemoglobin 15 on admission, present 13.1. MCV 88. White count 10.8 presently 7.5. INR 1.1. BUN 17. Creatinine 0.8. FOBT positive. 02/22/2019 Patient says that her abdominal pain is better today. Denied any blood in the bowel movement. Patient is able to get up and walk to the bathroom. Patient is weak and on Levaquin and Flagyl. GI following. C. diff is negative. Patient is afebrile and saturating well on room air. 02/23/2019 Patient is improving clinically. No complaints of abdominal pain. No nausea vomiting. Currently tolerating liquid diet and is being advanced. No evidence of further bleeding per rectum. Continued on IV antibiotics. Anticipate discharge next 24 hours. 02/24/2019 Patient is sitting up in bed in no acute distress. Patient states that she started having diarrhea in the middle of the night last night and has had about 3 or 4 episodes as far. No blood noted in the stool. Patient is having some lower abdominal pain and cramping. GI is following. Patient is currently on a clear liquid diet and tolerating. Patient is having some nausea with no vomiting at this time. Currently patient denies any chest pain, shortness of breath, or palpitations at this time. Patient is afebrile. Patient is concerned about going home with his diarrhea she has had a history of C. diff in the past and has made her quite ill. Will continue to monitor closely. Patient is currently maintained on IV antibiotics in the form of Levaquin and Flagyl. Objective - Vital Signs Vital signs: Vital Signs Temp 98.8 F 02/24/19 12:00 Pulse 67 02/24/19 12:00 Resp 20 02/24/19 12:00 BP 122/66 02/24/19 12:00 Pulse Ox 98 02/24/19 12:00 Intake & Output 02/23/19 02/24/19 02/24/19 18:59 06:59 18:59 Intake Total 809 20 6094 Balance 451 65 0686 Weight 55.3 kg Intake: IV 640 640 Sodium Chloride 0.9% 1, 640 640 000 ml @ 80 mls/hr IV . [id number] [facility] Rx#:[id number] Intake, IV Titration 100 Amount metroNIDAZOLE-NS PMX 500 100 mg In Saline 1 100ml.bag @ 100 mls/hr IVPB Q8HR [facility] Rx#:[id number] Oral 120 20 850 Other: Voiding Method Toilet Toilet # Voids 1 # Bowel Movements 1 - Exam Patient is sitting up in the bed comfortably, no acute distress, awake alert and oriented. Vital signs are stable. Temp is 98.8F, pulse is 67, respirations are 20, blood pressure is 122/66, oxygen saturation is 98% on room air. HEENT: Normocephalic. Neck is supple. Pupils reactive. Nostrils clear. Oral cavity is moist. Ears reveal no drainage. Neck reveals no JVD, carotid bruits, or thyromegaly. CHEST EXAMINATION: Trachea is central. Symmetrical expansion. Lung wesley clear to auscultation and percussion. CARDIAC: Normal S1, S2 with no gallops. No murmurs ABDOMEN: Soft. Mild tenderness noted with palpation in the left lower quadrant. Bowel sounds normal. No organomegaly. No abdominal bruits. Extremities: reveal no edema. No clubbing or cyanosis Neurologically awake, alert, oriented x3 with well-coordinated movements. No focal deficits noted Skin: No rash or skin lesions. Psychiatric: Cooperative. Non-suicidal Musculoskeletal: No joint swelling or deformity. Normal range of motion. - Labs CBC & Chem 7: 02/24/19 05:56 02/23/19 06:33 Labs: Microbiology - Last 24 Hours (Table) 02/20/19 20:15 Blood Culture - Preliminary Blood No Growth after 72 hours Assessment and Plan Assessment: Bright red blood per rectum with abdominal pain likely could be due to diverticular bleed versus infectious/ischemic colitis Mild acute blood loss anemia History of C. diff colitis 2 History of diverticulosis Hyperlipidemia DVT prophylaxis with SCDs Small hiatal hernia Previous history of EGD and colonoscopy 7-8 years ago Recommendations and discussion: Recommend to continue current medications, management, and symptomatic treat ment. Patient is continue with IV antibiotics at this time. GI is following. Patient is maintained on clear liquids at this time and will continue to monitor closely. Patient started having some diarrhea last night and will continue to monitor closely. No blood noted in the stool at this time. Patient continues to have diarrhea may possibly repeat C. diff as her original one was negative. Patient's hemoglobin is 12.9 at this time. Will repeat a.m. labs. Further recommendations to follow. Guarded prognosis. Possible discharge in 24-48 hours.
--- NOTE | 2019-02-24 19:01 | PN ---
PROGRESS NOTE DATE OF DISCHARGE: 02/24/2019 The patient is an 83-year-old pleasant white female admitted to the hospital with acute onset of lower abdominal pain followed by bloody diarrhea for 2 days' duration. She is feeling much better. She still has some abdominal pain. She had 2 episodes of loose watery bowel movements last night. She denies any further episodes of bleeding. No nausea, vomiting. Overall she is feeling better. PHYSICAL EXAMINATION: She appears comfortable. No apparent distress. VITAL SIGNS: Stable. Blood pressure is 108/73, pulse rate 73, temperature 97.7. HEENT examination unremarkable. Conjunctivae pink. Sclerae anicteric. Oral cavity no lesions. NECK: No JVD or lymph node enlargement. CHEST: Clear to auscultation. HEART: Regular rate and rhythm. ABDOMEN: Soft. There was mild tenderness in the left lower quadrant area as well as in the suprapubic area. Rest of the abdomen was benign. Bowel sounds are positive. No organomegaly. EXTREMITIES: No pedal edema. SKIN: No rashes. NEUROLOGIC: Alert and oriented x3. No focal deficits. LABS: Labs done today show WBC 6, hemoglobin 12.8 and platelets 254. IMPRESSION: Acute onset of lower abdominal pain and bloody diarrhea. Her symptoms are consistent with ischemic colitis. CT of the abdomen did show thickening of the left colon. Presently on empiric antibiotics and her symptoms are gradually improving. The abdominal pain has improved. Bleeding has resolved. She did have 2 episodes of loose watery bowel movements last night. RECOMMENDATIONS: 1. Advance to a full liquid diet. 2. Repeat labs in the morning. 3. Continue empiric antibiotics. 4. If her symptoms continue to improve, her diet can be advanced to a soft diet tomorrow and she can be discharged home in 1 to 2 . Will plan for colonoscopy on an outpatient basis. Thank you for this consultation. MMODL / IJN: [id number] /
[2019-02-24] MEDS: PRAVASTATIN SODIUM 20 MG TAB PO SCH (20:16)
[2019-02-24] MEDS: LEVOFLOXACIN 250MG-D5W PMX 250 MG in DEXTROSE/WATER 1 50ML.BAG IVPB SCH (20:16)
[2019-02-24] MEDS: LISINOPRIL 10 MG TAB PO SCH (20:16)
[2019-02-24] MEDS: MELATONIN 5 MG TABLET PO PRN (23:03)
[2019-02-25] MEDS: ONDANSETRON 4 MG/2 ML VIAL IVP PRN (07:31)
[2019-02-25] MEDS: PANTOPRAZOLE 40 MG TABLET PO SCH ×2 (07:31→22:10)
[2019-02-25] MEDS: metroNIDAZOLE-NS PMX 500 MG in SALINE 1 100ML.BAG IVPB SCH ×3 (07:31→23:56)
[2019-02-25] MEDS: PROPRANOLOL 40 MG TAB PO SCH ×2 (08:27→22:10)
[2019-02-25 08:48] LABS: Basophils # (A) 0.1 k/uL (0-0.2); Basophils % (A) 1 %; Eosinophils # (A) 0.2 k/uL (0-0.7); Eosinophils % (A) 4 %; HCT 44.3 % (34.0-46.0); HGB 14.4 gm/dL (11.4-16.0); Lymphocytes # (A) 1.3 k/uL (1.0-4.8); Lymphocytes % (A) 20 %; MCH 30.5 pg (25.0-35.0); MCHC 32.5 g/dL (31.0-37.0); MCV 93.7 fL (80.0-100.0); Mean Platelet Volume 5.9; Monocytes # (A) 0.3 k/uL (0-1.0); Monocytes % (A) 5 %; Neutrophils # (A) 4.2 k/uL (1.3-7.7); Neutrophils % (A) 68 %; Platelet Count 305 k/uL (150-450); RBC 4.72 m/uL (3.80-5.40); RDW 12.7 % (11.5-15.5); WBC 6.1 k/uL (3.8-10.6)
[2019-02-25] MEDS: SODIUM CHLORIDE 0.9% 1,000 ML IV SCH ×2 (11:26→23:58)
--- NOTE | 2019-02-25 15:14 | P.PN ---
Subjective Progress Note Date: 02/25/19 Principal diagnosis: Colitis Patient is a 83-year-old female with a known history of hyperlipidemia, history of diverticulosis, previous history of C. diff infection 2 came to ER with complaints of abdominal pain and bright red blood per rectum. Patient was noted to have bright red blood and she had a bowel movement yesterday. Patient had previous history of rectal bleeding and had colonoscopy 7-10 years ago. Abdominal pain is mainly left lower quadrant and in the lower abdomen suprapubic area. Denied any dysuria or hematuria. Patient has been afebrile. Denied any recent antibiotic use. No recent diarrhea. CT of the abdominal pelvis showed wall thickening of the proximal sigmoid colon suggestive of nonspecific colitis with sigmoid diverticulosis. hemoglobin 15 on admission, present 13.1. MCV 88. White count 10.8 presently 7.5. INR 1.1. BUN 17. Creatinine 0.8. FOBT positive. 02/22/2019 Patient says that her abdominal pain is better today. Denied any blood in the bowel movement. Patient is able to get up and walk to the bathroom. Patient is weak and on Levaquin and Flagyl. GI following. C. diff is negative. Patient is afebrile and saturating well on room air. 02/23/2019 Patient is improving clinically. No complaints of abdominal pain. No nausea vomiting. Currently tolerating liquid diet and is being advanced. No evidence of further bleeding per rectum. Continued on IV antibiotics. Anticipate discharge next 24 hours. 02/24/2019 Patient is sitting up in bed in no acute distress. Patient states that she started having diarrhea in the middle of the night last night and has had about 3 or 4 episodes as far. No blood noted in the stool. Patient is having some lower abdominal pain and cramping. GI is following. Patient is currently on a clear liquid diet and tolerating. Patient is having some nausea with no vomiting at this time. Currently patient denies any chest pain, shortness of breath, or palpitations at this time. Patient is afebrile. Patient is concerned about going home with his diarrhea she has had a history of C. diff in the past and has made her quite ill. Will continue to monitor closely. Patient is currently maintained on IV antibiotics in the form of Levaquin and Flagyl. 02/25/2019 Patient is sitting up at the side of the bed in no acute distress. is at the bedside. Patient states that her abdominal discomfort is much better and patient reports no further episodes of diarrhea at this time. GI is following. Patient is advancing diet and will continue to monitor closely. Patient rolando ball is on IV antibiotics in the form of Levaquin and Flagyl and is tolerating well. Currently patient denies any chest pain, shortness of breath, or palpitations at this time. Patient is afebrile. Patient denies any nausea or vomiting and is tolerating diet. Discussed with the patient at length about advancing diet slowly but encouraged increasing oral intake. Patient states that she is passing gas and denies any further episodes of diarrhea. Guarded prognosis. Objective - Vital Signs Vital signs: Vital Signs Temp 97.9 F 02/25/19 12:32 Pulse 72 02/25/19 12:32 Resp 20 02/25/19 12:32 BP 149/81 02/25/19 12:32 Pulse Ox 96 02/25/19 12:32 Intake & Output 02/24/19 02/25/19 02/25/19 18:59 06:59 18:59 Intake Total 1690 250 Balance 1690 250 Intake: IV 640 Sodium Chloride 0.9% 1, 640 000 ml @ 80 mls/hr IV . [id number] [facility] Rx#:[id number] Oral 1050 250 Other: Voiding Method Toilet Toilet # Voids 2 1 # Bowel Movements 1 0 1 - Exam Patient is sitting up in the bed comfortably, no acute distress, awake alert and oriented. Vital signs are stable. Temp is an 87.9, pulse is 82, respirations are 20, blood pressure is 149/81, oxygen saturation is 96% on room air. HEENT: Normocephalic. Neck is supple. Pupils reactive. Nostrils clear. Oral cavity is moist. Ears reveal no drainage. Neck reveals no JVD, carotid bruits, or thyromegaly. CHEST EXAMINATION: Trachea is central. Symmetrical expansion. Lung wesley clear to auscultation and percussion. CARDIAC: Normal S1, S2 with no gallops. No murmurs ABDOMEN: Soft. No tenderness noted upon palpation. Bowel sounds normal. No organomegaly. No abdominal bruits. Extremities: reveal no edema. No clubbing or cyanosis Neurologically awake, alert, oriented x3 with well-coordinated movements. No focal deficits noted Skin: No rash or skin lesions. Psychiatric: Cooperative. Non-suicidal Musculoskeletal: No joint swelling or deformity. Normal range of motion. - Labs CBC & Chem 7: 02/25/19 08:34 02/23/19 06:33 Labs: Microbiology - Last 24 Hours (Table) 02/20/19 20:15 Blood Culture - Preliminary Blood No Growth after 96 hours Assessment and Plan Assessment: Bright red blood per rectum with abdominal pain likely could be due to diverticular bleed versus infectious/ischemic colitis Mild acute blood loss anemia History of C. diff colitis 2 History of diverticulosis Hyperlipidemia DVT prophylaxis with SCDs Small hiatal hernia Previous history of EGD and colonoscopy 7-8 years ago Recommendations and discussion: Recommend to continue current medications, management, and symptomatic treatment. Patient is continue with IV antibiotics at this time. GI is following. Patient will follow-up in the outpatient setting for possible colonoscopy. Patient is advancing diet at this time and will continue to monitor closely. Patient reports no diarrhea and nausea has subsided. No blood noted in the stool at this time. Patient's hemoglobin is 14.4 at this time. Will repeat a.m. labs. Further recommendations to follow. Guarded prognosis. Possible discharge in 24 hours.
--- NOTE | 2019-02-25 17:31 | PN ---
PROGRESS NOTE DATE OF DISCHARGE: 02/25/2019 The patient is an 83-year-old pleasant white female admitted to the hospital with acute onset of lower abdominal pain and bloody diarrhea of 2 days' duration. She is feeling much better. No further episodes of bleeding. Abdominal pain is gradually improving. On a full liquid diet, tolerating well. No fever, chills or night sweats. PHYSICAL EXAMINATION: She appears comfortable. No apparent distress. VITAL SIGNS: Stable. Blood pressure is 149/81 pulse rate 72, temperature 97.9. HEENT examination unremarkable. Conjunctivae pink. Sclerae anicteric. Oral cavity no lesions. NECK: No JVD or lymph node enlargement. CHEST: Clear to auscultation. HEART: Regular rate and rhythm. ABDOMEN: Soft. There was very minimal tenderness in the left lower quadrant area. EXTREMITIES: No pedal edema. SKIN: No rashes. NEUROLOGIC: Alert and oriented x3. No focal deficits. LABS: Labs done today show WBC 6.1, hemoglobin 14.4, platelets 305. Basic metabolic panel is within normal limits. C difficile is negative. IMPRESSION: Acute onset of lower abdominal pain followed by bloody diarrhea of one day's duration. CT scan showed thickening of the left colon, all consistent with acute ischemic colitis, possible infectious etiology. Presently on antibiotics, doing well. Her symptoms have significantly improved. Diarrhea has resolved and so did the bleeding. Hemoglobin remains stable at 14.4 g/dL. RECOMMENDATIONS: 1. Advance to a soft diet. 2. Continue antibiotics. 3. If patient is able to tolerate diet well, she can be discharged home today with an outpatient followup in 2 weeks. We will plan an outpatient colonoscopy in 6 to 8 weeks. Thank you for this consultation. MMODL / IJN: [id number] /
[2019-02-25] MEDS ORDERED: PANTOPRAZOLE 40 MG/10 ML VIAL IVP SCH (21:00)
[2019-02-25] MEDS: PRAVASTATIN SODIUM 20 MG TAB PO SCH (22:10)
[2019-02-25] MEDS: LEVOFLOXACIN 250MG-D5W PMX 250 MG in DEXTROSE/WATER 1 50ML.BAG IVPB SCH (22:11)
[2019-02-25] MEDS: LISINOPRIL 10 MG TAB PO SCH (22:11)
[2019-02-25] MEDS: MELATONIN 5 MG TABLET PO PRN (22:16)
[2019-02-26 06:35] VITALS: BP 156/90; PULSE 82; RESP 16; TEMP 97.6
[2019-02-26] MEDS: metroNIDAZOLE-NS PMX 500 MG in SALINE 1 100ML.BAG IVPB SCH (08:48)
[2019-02-26] MEDS: PANTOPRAZOLE 40 MG TABLET PO SCH (08:49)
[2019-02-26] MEDS: PROPRANOLOL 40 MG TAB PO SCH (08:49)
--- NOTE | 2019-02-28 09:22 | P.DS ---
Providers Date of admission: 02/22/19 12:31 Expected date of discharge: 02/26/19 Attending physician: Eve Sinha Consults: 02/20/19 19:24 Consult Physician Routine Consulting Provider: Efrain Leong Consult Reason/Comments: GI bleed, abdominal pain Do you want consulting provider notified?: Yes Primary care physician: [facility] Course: Final diagnosis Bright red blood per rectum with abdominal pain Mild acute blood loss anemia History of C. diff colitis 2 History of diverticulosis Hyperlipidemia DVT prophylaxis Small hiatal hernia Previous history of EGD and colonoscopy 7-8 years ago Discharge disposition Patient is being discharged in a stable condition with guarded prognosis to home and will follow-up with primary care provider in about outpatient setting. Patient will also follow-up with GI Dr. Cohen in about 1-2 weeks. She will continue short course of oral antibiotics in the form of Flagyl for the next 3 days. Total time taken is 35 minutes. History of present illness This is an 83-year-old female who was admitted for abdominal pain and bright red blood per rectum and was being closely monitored. GI was following. During hospitalization patient had a CAT scan of the abdomen pelvis done showing wall thickening of the proximal sigmoid colon suggestive of nonspecific colitis with sigmoid diverticulosis. During hospitalization patient experienced one small bout of blood noticed in the stool with no repeat episodes of blood noted. Patient had some abdominal cramping and discomfort in the lower right-sided abdomen and had some diarrhea with no blood noted. Patient was being closely monitored. GI recommends follow-up in the outpatient setting in 1-2 weeks and will discuss a colonoscopy at that point. No surgical intervention at this time during hospitalization. Currently patient's condition is stable and would like to go home. Patient denies having any more diarrhea and has been advancing diet and having more formed stools. Patient denies any nausea or vomiting. Patient has been afebrile. Patient denies any chest pain, shortness of breath, or palpitations at this time. Patient has been advancing her diet slowly and tolerating well. Patient would really like to go home today. Currently patient's condition is stable with much improvement and will continue on a short course of oral antibiotics in the form of Flagyl and follow-up with her primary care provider upon discharge. Guarded prognosis. On exam vital signs are stable. Temp is 97.6 degrees Fahrenheit, pulse is 82 , Blood pressure is 156/90 , respirations are 16 , Oxygen saturation is 97 % on room air. Cardio S1 and S2 are present. Respiratory system shows diminished breath sounds at the bases otherwise clear to auscultation. Abdomen is soft and non-tender. Nervous system shows no focal deficits and gait is steady. Please refer to medication reconciliation sheet for a list of medications. Patient Condition at Discharge: Good Plan - Discharge Summary Discharge Rx Participant: No New Discharge Prescriptions: New metroNIDAZOLE [Flagyl] 500 mg PO Q8HR 3 Days #9 tab Continue Pravastatin Sodium [Pravachol] 20 mg PO HS Lisinopril [Zestril] 10 mg PO DAILY Dicyclomine [Bentyl] 10 mg PO TID #20 cap Ondansetron [Zofran] 4 - 8 mg PO Q8H PRN PRN Reason: Nausea Nitroglycerin Sl Tabs [Nitrostat] 0.4 mg SUBLINGUAL Q5M PRN PRN Reason: Chest Pain Multivitamins, Thera [Multivitamin (formulary)] 1 tab PO DAILY L.acidoph,Paracasei, B.lactis [Probiotic] 1 cap PO DAILY Aspirin EC [Ecotrin Low Dose] 81 mg PO DAILY traMADol HCL 50 mg PO BID PRN PRN Reason: Pain Omeprazole [PriLOSEC] 20 mg PO DAILY PRN PRN Reason: GERD Gabapentin [Neurontin] 100 mg PO TID Propranolol [Inderal] 40 mg PO BID Discharge Medication List Lisinopril [Zestril] 10 mg PO DAILY 08/14/17 [History] Pravastatin Sodium [Pravachol] 20 mg PO HS 08/14/17 [History] Dicyclomine [Bentyl] 10 mg PO TID #20 cap 08/16/17 [Rx] Aspirin EC [Ecotrin Low Dose] 81 mg PO DAILY 02/20/19 [History] Gabapentin [Neurontin] 100 mg PO TID 02/20/19 [History] L.acidoph,Paracasei, B.lactis [Probiotic] 1 cap PO DAILY 02/20/19 [History] Multivitamins, Thera [Multivitamin (formulary)] 1 tab PO DAILY 02/20/19 [History] Nitroglycerin Sl Tabs [Nitrostat] 0.4 mg SUBLINGUAL Q5M PRN 02/20/19 [History] Omeprazole [PriLOSEC] 20 mg PO DAILY PRN 02/20/19 [History] Ondansetron [Zofran] 4 - 8 mg PO Q8H PRN 02/20/19 [History] Propranolol [Inderal] 40 mg PO BID 02/20/19 [History] traMADol HCL 50 mg PO BID PRN 02/20/19 [History] metroNIDAZOLE [Flagyl] 500 mg PO Q8HR 3 Days #9 tab 02/26/19 [Rx] Follow up Appointment(s)/Referral(s): Anali Cohen MD [STAFF PHYSICIAN] - 1 Week () Yefri Martinez DO [Primary Care Provider] - 1-2 days Patient Instructions/Handouts: Gastrointestinal Bleeding (DC), C Diff (Clostridium Difficile) Infection (DC), Infectious Colitis (ED) Activity/Diet/Wound Care/Special Instructions: Activity Limited until follow-up Follow-up with primary care provider upon discharge Complete a 3 day course of antibiotics until finished Follow-up with GI in 1-2 weeks as discussed Continue current diet and advance as tolerated Discharge Disposition: HOME SELF-CARE
== END 2019-02-26 12:16 | disposition home or self-care (01) | DRG 393 ==
LOC: EC 16:02 → 3SCARD 19:23 → OBSVTOIN 02-22 12:31 → 4MS4W 02-24 23:48
PROVIDERS: ADMIT Hospitalist; ATTEND Hospitalist
DX: K55.039 Acute (reversible) ischemia of large intestine, extent unspecified (principal); K57.31 Diverticulosis of large intestine without perforation or abscess with bleeding; D62 Acute posthemorrhagic anemia; K44.9 Diaphragmatic hernia without obstruction or gangrene; I10 Essential (primary) hypertension; E78.5 Hyperlipidemia, unspecified; D72.821 Monocytosis (symptomatic); Z79.82 Long term (current) use of aspirin; Z79.899 Other long term (current) drug therapy; Z86.19 Personal history of other infectious and parasitic diseases; Z86.69 Personal history of other diseases of the nervous system and sense organs; Z87.19 Personal history of other diseases of the digestive system; Z90.710 Acquired absence of both cervix and uterus; Z90.49 Acquired absence of other specified parts of digestive tract; Z88.0 Allergy status to penicillin; Z82.62 Family history of osteoporosis
CPT/HCPCS: 36415; 74177; 80048; 80053; 82272; 84484; 85025; 85027; 85610; 85730; 86140; 87040; 87324; 96374; 99284

== ENCOUNTER 2021-03-01 10:51 | Emergency (ER) | payer MEDICARE ==
[2021-03-01 11:02] VITALS: TEMP 96.9
[2021-03-01] MEDS ORDERED: SODIUM CHLORIDE 0.9% 1,000 ML IV STA (11:23)
[2021-03-01 12:22] LABS: Basophils # (A) 0.1 k/uL (0-0.2); Basophils % (A) 1 %; Eosinophils # (A) 0.2 k/uL (0-0.7); Eosinophils % (A) 3 %; Lymphocytes # (A) 1.4 k/uL (1.0-4.8); Lymphocytes % (A) 25 %; MCH 31.1 pg (25.0-35.0); MCV 91.5 fL (80.0-100.0); Mean Platelet Volume 7.1; Monocytes # (A) 0.5 k/uL (0-1.0); Monocytes % (A) 8 %; Neutrophils # (A) 3.4 k/uL (1.3-7.7); Neutrophils % (A) 61 %; Platelet Count 262 k/uL (150-450); RBC 4.48 m/uL (3.80-5.40); RDW 12.3 % (11.5-15.5); WBC 5.6 k/uL (3.8-10.6)
[2021-03-01 12:42] LABS: Calcium 9.7 mg/dL (8.4-10.2); Total Bilirubin 0.6 mg/dL (0.2-1.3); Total Protein 6.5 g/dL (6.3-8.2)
[2021-03-01 13:56] LABS: Appearance,Urine Clear (Clear); Bilirubin,Urine Negative (Negative); Blood,Urine Negative (Negative); Color,Urine Light Yellow; Glucose,Urine (UA) Negative (Negative); Ketones,Urine 2+ (Negative); Leukocyte Esterase,Urine Negative (Negative); Nitrite,Urine Negative (Negative); PH, Urine 5.5 (5.0-8.0); Protein,Urine Negative (Negative); Specific Gravity,Urine 1.007 (1.001-1.035); Urobilinogen,Urine <2.0 mg/dL (<2.0)
--- NOTE | 2021-03-01 14:26 | ED ---
Nausea/Vomiting/Diarrhea HPI - General Chief complaint: Nausea/Vomiting/Diarrhea Stated complaint: abd pain Time Seen by Provider: 03/01/21 11:12 Source: patient, RN notes reviewed Mode of arrival: ambulatory Limitations: no limitations - History of Present Illness Initial comments: Patient is 85-year-old female that presents to the emergency department complaining of diarrhea for the past couple weeks. She notes she does have a history of C. diff so she became concerned. She notes that she was told to do a stool sample with her primary care but has not gotten results back. Patient notes that she is drinking plenty of Pedialyte stay hydrated and tried to eat as much as possible. Patient was otherwise well-appearing in no apparent distress. She denied any chest pain shortness of breath headache nausea vomiting constipation fever fatigue chills. - Related Data Home Medications Medication Instructions Recorded Confirmed Lisinopril [Zestril] 10 mg PO HS 08/14/17 03/01/21 Pravastatin Sodium [Pravachol] 20 mg PO HS 08/14/17 03/01/21 Aspirin EC [Ecotrin Low Dose] 81 mg PO DAILY 02/20/19 03/01/21 L.acidoph,Paracasei, B.lactis 1 cap PO DAILY 02/20/19 03/01/21 [Probiotic] Multivitamins, Thera [Multivitamin 1 tab PO DAILY 02/20/19 03/01/21 (formulary)] Propranolol [Inderal] 40 mg PO BID 02/20/19 03/01/21 traZODone HCL 50 - 150 mg PO HS PRN 03/01/21 03/01/21 Allergies Allergy/AdvReac Type Severity Reaction Status Date / Time Penicillins Allergy Swelling Verified 03/01/21 11:46 Review of Systems ROS Statement: Those systems with pertinent positive or pertinent negative responses have been documented in the HPI. ROS Other: All systems not noted in ROS Statement are negative. Past Medical History Past Medical History: Hyperlipidemia Additional Past Medical History / Comment(s): diverticulosis, small hiatal h ernia, benign liver cyst. History of Any Multi-Drug Resistant Organisms: None Reported Past Surgical History: Appendectomy, Hysterectomy Additional Past Surgical History / Comment(s): EGD, colonoscopy, R shoulder arthroscopy Past Anesthesia/Blood Transfusion Reactions: No Reported Reaction Past Psychological History: No Psychological Hx Reported Smoking Status: Never smoker Past Alcohol Use History: None Reported Past Drug Use History: None Reported - Past Family History Father History Unknown: Yes Mother Additional Family Medical History / Comment(s): Mother had osteoporosis. She at the age of 69yrs, pt does not know cause of . General Exam Limitations: no limitations General appearance: alert, in no apparent distress Head exam: Present: atraumatic, normocephalic, normal inspection Eye exam: Present: normal appearance, PERRL, EOMI. Absent: scleral icterus, conjunctival injection, periorbital swelling ENT exam: Present: normal exam, mucous membranes moist Neck exam: Present: normal inspection Respiratory exam: Present: normal lung sounds bilaterally. Absent: respiratory distress, wheezes, rales, rhonchi, stridor Cardiovascular Exam: Present: regular rate, normal rhythm, normal heart sounds. Absent: systolic murmur, diastolic murmur, rubs, gallop, clicks GI/Abdominal exam: Present: soft, normal bowel sounds. Absent: distended, ten derness, guarding, rebound, rigid Extremities exam: Present: normal inspection, full ROM, normal capillary refill. Absent: tenderness, pedal edema, joint swelling, calf tenderness Neurological exam: Present: alert, oriented X3 Psychiatric exam: Present: normal affect, normal mood Skin exam: Present: warm, dry, intact, normal color. Absent: rash Course Vital Signs 03/01/21 10:59 Temperature 96.9 F L Pulse Rate 104 H Respiratory 20 Rate Blood Pressure 141/66 O2 Sat by Pulse 98 Oximetry Medical Decision Making - Medical Decision Making 85-year-old female complaining of diarrhea for 2 weeks. Labs, stool sample, C. diff culture ordered. 1 L normal saline ordered. Labs unremarkable, urinalysis negative. Patient wishes to go home at this time. Will give stool sample to her primary care to send. Case discussed with Dr. [place], patient can discharge home. - Lab Data Result diagrams: 03/01/21 12:07 03/01/21 12:07 Lab Results 03/01/21 03/01/21 03/01/21 Range/Units 12:07 12:07 13:30 WBC 5.6 (3.8-10.6) k/uL RBC 4.48 (3.80-5.40) m/uL Hgb 14.0 (11.4-16.0) gm/dL Hct 41.0 (34.0-46.0) % MCV 91.5 (80.0-100.0) fL MCH 31.1 (25.0-35.0) pg MCHC 34.0 (31.0-37.0) g/dL RDW 12.3 (11.5-15.5) % Plt Count 262 (150-450) k/uL MPV 7.1 Neutrophils % 61 % Lymphocytes % 25 % Monocytes % 8 % Eosinophils % 3 % Basophils % 1 % Neutrophils # 3.4 (1.3-7.7) k/uL Lymphocytes # 1.4 (1.0-4.8) k/uL Monocytes # 0.5 (0-1.0) k/uL Eosinophils # 0.2 (0-0.7) k/uL Basophils # 0.1 (0-0.2) k/uL Sodium 136 L (137-145) mmol/L Potassium 4.0 (3.5-5.1) mmol/L Chloride 102 (98-107) mmol/L Carbon Dioxide 25 (22-30) mmol/L Anion Gap 9 mmol/L BUN 7 (7-17) mg/dL Creatinine 0.94 (0.52-1.04) mg/dL Est GFR (CKD-EPI)AfAm 64 (>60 ml/min/1.73 sqM) Est GFR (CKD-EPI)NonAf 56 (>60 ml/min/1.73 sqM) Glucose 99 (74-99) mg/dL Calcium 9.7 (8.4-10.2) mg/dL Total Bilirubin 0.6 (0.2-1.3) mg/dL AST 22 (14-36) U/L ALT 11 (4-34) U/L Alkaline Phosphatase 54 (38-126) U/L Total Protein 6.5 (6.3-8.2) g/dL Albumin 4.0 (3.5-5.0) g/dL Urine Color Light Yellow Urine Appearance Clear (Clear) Urine pH 5.5 (5.0-8.0) Ur Specific [place] 1.007 (1.001-1.035) Urine Protein Negative (Negative) Urine Glucose (UA) Negative (Negative) Urine Ketones 2+ H (Negative) Urine Blood Negative (Negative) Urine Nitrite Negative (Negative) Urine Bilirubin Negative (Negative) Urine Urobilinogen <2.0 (<2.0) mg/dL Ur Leukocyte Esterase Negative (Negative) Disposition Clinical Impression: Dehydration, Diarrhea Disposition: HOME SELF-CARE Condition: Stable Instructions (If sedation given, give patient instructions): Acute Diarrhea (ED) Additional Instructions: Please return to the Emergency Department if symptoms worsen or any other concerns. Follow-up with primary care 1-2 days. Take stool sample to primary care. Continue to increase oral fluids and eating well. Increase dietary fiber. Is patient prescribed a controlled substance at d/c from ED?: No Referrals: Yefri Martinez DO [Primary Care Provider] - 1-2 days Time of Disposition: 14:25
[2021-03-01 15:27] VITALS: BP 135/83; PULSE 89; RESP 18
== END 2021-03-01 15:27 | disposition home or self-care (01) ==
LOC: EC 10:51
DX: E86.0 Dehydration (principal); R19.7 Diarrhea, unspecified; R11.2 Nausea with vomiting, unspecified; R10.9 Unspecified abdominal pain; Z88.0 Allergy status to penicillin; E78.5 Hyperlipidemia, unspecified; Z79.899 Other long term (current) drug therapy; Z79.82 Long term (current) use of aspirin
CPT/HCPCS: 36415; 80053; 81003; 85025; 96360; 96361; 99284

== ENCOUNTER → 2022-05-05 | Outpatient (CLI) | payer MEDICARE ==
--- NOTE | 2022-05-05 18:52 | XR ---
EXAMINATION TYPE: XR tibia fibula LT DATE OF EXAM: 05/05/2022 CLINICAL HISTORY: Left lower leg throbbing pain for 2 weeks. TECHNIQUE: Two views of the left leg are obtained. COMPARISON: None. FINDINGS: There is no acute fracture or dislocation seen in the left tibia or fibula. The left knee and ankle joints appear within normal limits. The overlying soft tissue appears unremarkable. IMPRESSION: Unremarkable study.
== END | disposition home or self-care (01) ==
LOC: RADXRYALE 16:16
PROVIDERS: ATTEND Family Medicine
DX: M79.662 Pain in left lower leg (principal)

== ENCOUNTER 2023-11-13 21:42 | Emergency (ER) | payer MEDICARE ==
[2023-11-13 21:51] VITALS: RESP 18
[2023-11-13] MEDS: SODIUM CHLORIDE 0.9% 1,000 ML IV STA (22:27)
[2023-11-13 22:55] LABS: Basophils # (A) 0.1 k/uL (0-0.2); Basophils % (A) 1 %; Eosinophils # (A) 0.2 k/uL (0-0.7); Eosinophils % (A) 2 %; HCT 39.6 % (34.0-46.0); HGB 13.1 gm/dL (11.4-16.0); Lymphocytes # (A) 1.3 k/uL (1.0-4.8); Lymphocytes % (A) 11 %; MCH 30.5 pg (25.0-35.0); MCHC 33.1 g/dL (31.0-37.0); MCV 92.3 fL (80.0-100.0); Mean Platelet Volume 7.8; Monocytes # (A) 0.9 k/uL (0-1.0); Monocytes % (A) 7 %; Neutrophils # (A) 9.5 k/uL (1.3-7.7); Neutrophils % (A) 78 %; Platelet Count 218 k/uL (150-450); RBC 4.29 m/uL (3.80-5.40); RDW 12.8 % (11.5-15.5); WBC 12.1 k/uL (3.8-10.6)
[2023-11-13 22:59] LABS: ALT 12 U/L (4-34); AST 28 U/L (14-36); African American GFR (CKD) 82 (>60 ml/min/1.73 sqM); Alkaline Phosphatase 46 U/L (38-126); Amylase 51 U/L (30-110); Anion Gap 2 mmol/L; Blood Urea Nitrogen 13 mg/dL (7-17); Calcium 9.1 mg/dL (8.4-10.2); Carbon Dioxide 26 mmol/L (22-30); Chloride 102 mmol/L (98-107); Glucose 93 mg/dL (74-99); Lipase 72 U/L (23-300); Non-African American GFR(CKD) 71 (>60 ml/min/1.73 sqM); Potassium 4.4 mmol/L (3.5-5.1); Sodium 130 mmol/L (137-145); Total Bilirubin 0.7 mg/dL (0.2-1.3); Total Protein 6.1 g/dL (6.3-8.2)
[2023-11-13 23:03] LABS: Partial Thromboplastin Time 25.8 sec (22.0-30.0)
[2023-11-13 23:06] LABS: Appearance,Urine Cloudy (Clear); Bacteria,Urine Rare /hpf; Bilirubin,Urine Negative (Negative); Blood,Urine Large (Negative); Color,Urine Yellow; Glucose,Urine (UA) Negative (Negative); Ketones,Urine Negative (Negative); Leukocyte Esterase,Urine Large (Negative); Nitrite,Urine Negative (Negative); PH, Urine 7.5 (5.0-8.0); Protein,Urine 1+ (Negative); RBC,Urine >182 /hpf (0-5); Urobilinogen,Urine <2.0 mg/dL (<2.0); WBC,Urine 147 /hpf (0-5)
[2023-11-13] MEDS: MORPHINE SULFATE 4 MG/ML SYRINGE IVP STA (23:10)
--- NOTE | 2023-11-13 23:51 | CT ---
EXAMINATION TYPE: CT abdomen pelvis w con DATE OF EXAM: 11/13/2023 HISTORY: hematuria CT DLP: 552.4mGycm Automated Exposure Control for Dose Reduction was Utilized. CONTRAST: CT scan of the abdomen and pelvis is performed with IV Contrast, patient injected with 100 mL of Isov ue 300. COMPARISON: Prior CT February 20, 2019 FINDINGS: LUNG BASES: No significant abnormality is appreciated. LIVER/GB: No significant abnormality is appreciated. PANCREAS: No significant abnormality is seen. SPLEEN: No significant abnormality is seen. ADRENALS: No significant abnormality is seen. KIDNEYS: Symmetric cortical medullary uptake and excretion without hydronephrosis seen bilaterally. M ildly distended bladder without intraluminal mass or calculus. Mild edematous wall thickening. BOWEL: No abnormal small or large bowel dilatation. Distal colonic diverticula throughout the sigmoi d colon. Mild to moderate wall thickening in the left colon without surrounding fat stranding. Fluid in the right and proximal transverse colon is abnormal finding. UTERUS/ADNEXA: Uterus is surgically absent. LYMPH NODES: No greater than 1cm abdominal or pelvic lymph nodes are appreciated. OSSEOUS STRUCTURES: Grade 1 retrolisthesis L2 on L3 and L4 on L5 with mild/moderate disc space narrow ing at these levels. OTHER: [id number] peripheral calcified plaque of the aorta extends into branch vessels. IMPRESSION: 1. Mild edematous wall thickening of the urinary bladder raises concern for bladder infection in edmundo ent with symptoms of hematuria. Correlate clinically. 2. Possible uncomplicated colitis or diarrhea. Correlate clinically.
--- NOTE | 2023-11-13 23:59 | ED ---
General Adult HPI - General Chief complaint: Urogenital Stated complaint: hematuria Time Seen by Provider: 11/13/23 22:11 Source: patient, RN notes reviewed, old records reviewed Mode of arrival: EMS Limitations: no limitations - History of Present Illness Initial comments: Patient is a 88-year-old female presents emergency department complaining of hematuria. Noticed that today when urinating. Also has some discomfort in her bladder region but is also describing some discomfort throughout her abdomen. Does have a history of diverticulitis. Denies any current diarrhea or constipation. Denies nausea or vomiting. Is not on blood thinners. Denies any vaginal discharge or bleeding. Presents for further evaluation at this time. - Related Data Home Medications Medication Instructions Recorded Confirmed Pravastatin Sodium [Pravachol] 20 mg PO HS 08/14/17 03/01/21 lisinopriL [Zestril] 10 mg PO HS 08/14/17 03/01/21 Aspirin EC [Ecotrin Low Dose] 81 mg PO DAILY 02/20/19 03/01/21 L.acidoph,Paracasei, B.lactis 1 cap PO DAILY 02/20/19 03/01/21 [Probiotic] Multivitamins, Thera [Multivitamin 1 tab PO DAILY 02/20/19 03/01/21 (formulary)] Propranolol [Inderal] 40 mg PO BID 02/20/19 03/01/21 traZODone HCL 50 - 150 mg PO HS PRN 03/01/21 03/01/21 Previous Rx's Medication Instructions Recorded Sulfamethox-Tmp 800-160Mg [Bactrim 1 tab PO Q12HR 7 Days #14 tab 11/13/23 DS 800-160 mg] Allergies Allergy/AdvReac Type Severity Reaction Status Date / Time Penicillins Allergy Swelling Verified 11/13/23 21:51 Review of Systems ROS Statement: Those systems with pertinent positive or pertinent negative responses have been documented in the HPI. Review of Systems: CONST: Denies fever EYES: Denies blurry vision ENT: Denies nasal congestion C/V: Denies Chest pain RESP: Denies shortness of breath GI: Endorses abdominal pain : Endorses hematuria, dysuria SKIN: Denies rash. MSK: Denies joint pain. NEURO: Denies headache ROS Other: All systems not noted in ROS Statement are negative. Past Medical History Past Medical History: Hyperlipidemia Additional Past Medical History / Comment(s): diverticulosis, small hiatal hernia, benign liver cyst. History of Any Multi-Drug Resistant Organisms: None Reported Past Surgical History: Appendectomy, Hysterectomy Additional Past Surgical History / Comment(s): EGD, colonoscopy, R shoulder arthroscopy Past Anesthesia/Blood Transfusion Reactions: No Reported Reaction Past Psychological History: No Psychological Hx Reported Smoking Status: Never smoker Past Alcohol Use History: None Reported Past Drug Use History: None Reported - Past Family History Father History Unknown: Yes Mother Additional Family Medical History / Comment(s): Mother had osteoporosis. She at the age of 69yrs, pt does not know cause of . General Exam - General Exam Comments Initial Comments: General: Appears in no acute distress. HEAD: Normal with no signs of head trauma. EYES: PERRLA, EOMI, conjunctiva normal, no discharge. ENT: Hearing grossly intact, normal oropharynx. RESPIRATORY: Clear breath sounds bilaterally. No wheezes, rales, or rhonchi. C/V: Regular rate and rhythm. S1 and S2 auscultated, no edema, peripheral pulses 2+ and intact throughout ABD: Abdomen soft, nondistended. Tender to palpation in the suprapubic as well as periumbilical region. No guarding or rebound tenderness. No peritoneal signs. No flank pain or back pain. EXT: no obvious deformity SKIN: No rashes or lesions observed on exposed skin. NEURO: Alert and oriented x 4. Limitations: no limitations Course Vital Signs 11/13/23 11/14/23 21:46 00:10 Temperature 98.9 F 97.6 F Pulse Rate 90 98 Respiratory 18 18 Rate Blood Pressure 149/85 139/74 O2 Sat by Pulse 95 96 Oximetry Medical Decision Making - Medical Decision Making Was pt. sent in by a medical professional or institution (, PA, SHIRT TURNER, urgent care, hospital, or assisted...) When possible be specific @ -No Did you speak to anyone other than the patient for history (EMS, parent, family, police, friend...)? What history was obtained from this source @ -No Did you review nursing and triage notes (agree or disagree)? Why? @ -I reviewed and agree with nursing and triage notes Were old charts reviewed (outside hosp., previous admission, EMS record, old EKG, old radiological studies, urgent care reports/EKG's, assisted records)? Report findings @ -No old charts were reviewed Differential Diagnosis (chest pain, altered mental status, abdominal pain women, abdominal pain men, vaginal bleeding, weakness, fever, dyspnea, syncope, headache, dizziness, GI bleed, back pain, seizure, CVA, palpatations, mental health, musculoskeletal)? @ -Differential Abdominal Pain Women: Appendicitis, Cholecystitis, diverticulosis, ischemic bowel, pancreatitis, hepatitis, UTI, gastroenteritis, AAA, incarcerated hernia, bowel obstruction, constipation, inflammatory bowel, hepatitis, peptic ulcer disease, splenic infarction, perforated viscus, vulvitis, ovarian torsion, PID, kidney stone, placenta abruption, this is not meant to be an all-inclusive list EKG interpreted by me (3pts min.). @ -None done X-rays interpreted by me (1pt min.). @ -None done CT interpreted by me (1pt min.). @ -CT reveals findings consistent with cystitis. U/S interpreted by me (1pt. min.). @ -None done What testing was considered but not performed or refused? (CT, X-rays, U/S, labs)? Why? @ -None What meds were considered but not given or refused? Why? @ -None Did you discuss the management of the patient with other professionals (professionals i.e. , PA, SHIRT TURNER, lab, RT, psych nurse, social media marketing analyst, divorce lawyer, teacher, staff air tactical officer, mental health program manager)? Give summary @ -No Was smoking cessation discussed for >3mins.? @ -No Was critical care preformed (if so, how long)? @ -No Were there social determinants of health that impacted care today? How? (Homelessness, low income, unemployed, alcoholism, drug addiction, transpo rtation, low edu. Level, literacy, decrease access to med. care, alf, rehab)? @ -No Was there de-escalation of care discussed even if they declined (Discuss DNR or withdrawal of care, Hospice)? DNR status @ -No What co-morbidities impacted this encounter? (DM, HTN, Smoking, COPD, CAD, Cancer, CVA, ARF, Chemo, Hep., AIDS, mental health diagnosis, sleep apnea, morbid obesity)? @ -None Was patient admitted / discharged? Hospital course, mention meds given and route, prescriptions, significant lab abnormalities, going to OR and other pertinent info. @ -Patient presents with dysuria and hematuria as well as abdominal pain. We will obtain abdominal labs as well as CT the abdomen pelvis concerning her age. She was in agreement this plan. Patient be symptomatically treated with IV fluids, morphine. Vital signs within acceptable limits. Laboratory studies remarkable for a slight leukocytosis of 12. Urinalysis remarkable for UTI. Urine culture sent. CT shows signs of acute cystitis. Discussed results with patient. She will be given a dose of IV Rocephin prior to discharge and started on oral Bactrim. Patient was in agreement this plan. Strict return precautions discussed. I will provide the patient with a prescription for Bactrim. I instructed the patient to follow up with their PCP in the next 1-3 days. . I explained that the patient should return to the emergency department if they experience any worsening symptoms. Strict return precautions were discussed with the patient. The patient expressed understanding of these instructions. I answered all questions that the patient had. The patient was discharged home in good condition with their prescriptions and follow up information. Undiagnosed new problem with uncertain prognosis? @ -No Drug Therapy requiring intensive monitoring for toxicity (Heparin, Nitro, Insulin, Cardizem)? @ -No Were any procedures done? @ -No Diagnosis/symptom? @ -UTI, cystitis, hematuria Acute, or Chronic, or Acute on Chronic? @ -Acute Uncomplicated (without systemic symptoms) or Complicated (systemic symptoms)? @ -Complicated Side effects of treatment? @ -No Exacerbation, Progression, or Severe Exacerbation? @ -No Poses a threat to life or bodily function? How? (Chest pain, [place], [place], pneumonia, PE, COPD, DKA, ARF, appy, cholecystitis, CVA, Diverticulitis, Homicidal, Suicidal, threat to staff... and all critical care pts) @ -Unlikely - Lab Data Result diagrams: 11/13/23 22:24 11/13/23 22:24 Lab Results 11/13/23 11/13/23 11/13/23 Range/Units 22:24 22:24 22:24 WBC 12.1 H (3.8-10.6) k/uL RBC 4.29 (3.80-5.40) m/uL Hgb 13.1 (11.4-16.0) gm/dL Hct 39.6 (34.0-46.0) % MCV 92.3 (80.0-100.0) fL MCH 30.5 (25.0-35.0) pg MCHC 33.1 (31.0-37.0) g/dL RDW 12.8 (11.5-15.5) % Plt Count 218 (150-450) k/uL MPV 7.8 Neutrophils % 78 % Lymphocytes % 11 % Monocytes % 7 % Eosinophils % 2 % Basophils % 1 % Neutrophils # 9.5 H (1.3-7.7) k/uL Lymphocytes # 1.3 (1.0-4.8) k/uL Monocytes # 0.9 (0-1.0) k/uL Eosinophils # 0.2 (0-0.7) k/uL Basophils # 0.1 (0-0.2) k/uL PT 11.0 (10.0-12.5) sec INR 1.0 (<1.2) APTT 25.8 (22.0-30.0) sec Sodium (137-145) mmol/L Potassium (3.5-5.1) mmol/L Chloride (98-107) mmol/L Carbon Dioxide (22-30) mmol/L Anion Gap mmol/L BUN (7-17) mg/dL Creatinine (0.52-1.04) mg/dL Est GFR (CKD-EPI)AfAm (>60 ml/min/1.73 sqM) Est GFR (CKD-EPI)NonAf (>60 ml/min/1.73 sqM) Glucose (74-99) mg/dL Plasma Lactic Acid [place] (0.7-2.0) mmol/L Calcium (8.4-10.2) mg/dL Total Bilirubin (0.2-1.3) mg/dL AST (14-36) U/L ALT (4-34) U/L Alkaline Phosphatase (38-126) U/L Total Protein (6.3-8.2) g/dL Albumin (3.5-5.0) g/dL Amylase (30-110) U/L Lipase (23-300) U/L Urine Color Yellow Urine Appearance Cloudy H (Clear) Urine pH 7.5 (5.0-8.0) Ur Specific [place] 1.010 (1.001-1.035) Urine Protein 1+ H (Negative) Urine Glucose (UA) Negative (Negative) Urine Ketones Negative (Negative) Urine Blood Large H (Negative) Urine Nitrite Negative (Negative) Urine Bilirubin Negative (Negative) Urine Urobilinogen <2.0 (<2.0) mg/dL Ur Leukocyte Esterase Large H (Negative) Urine RBC >182 H (0-5) /hpf Urine WBC 147 H (0-5) /hpf Urine Bacteria Rare H (None) /hpf 11/13/23 11/13/23 Range/Units 22:24 22:24 WBC (3.8-10.6) k/uL RBC (3.80-5.40) m/uL Hgb (11.4-16.0) gm/dL Hct (34.0-46.0) % MCV (80.0-100.0) fL MCH (25.0-35.0) pg MCHC (31.0-37.0) g/dL RDW (11.5-15.5) % Plt Count (150-450) k/uL MPV Neutrophils % % Lymphocytes % % Monocytes % % Eosinophils % % Basophils % % Neutrophils # (1.3-7.7) k/uL Lymphocytes # (1.0-4.8) k/uL Monocytes # (0-1.0) k/uL Eosinophils # (0-0.7) k/uL Basophils # (0-0.2) k/uL PT (10.0-12.5) sec INR (<1.2) APTT (22.0-30.0) sec Sodium 130 L (137-145) mmol/L Potassium 4.4 (3.5-5.1) mmol/L Chloride 102 (98-107) mmol/L Carbon Dioxide 26 (22-30) mmol/L Anion Gap 2 mmol/L BUN 13 (7-17) mg/dL Creatinine 0.76 (0.52-1.04) mg/dL Est GFR (CKD-EPI)AfAm 82 (>60 ml/min/1.73 sqM) Est GFR (CKD-EPI)NonAf 71 (>60 ml/min/1.73 sqM) Glucose 93 (74-99) mg/dL Plasma Lactic Acid [place] 0.8 (0.7-2.0) mmol/L Calcium 9.1 (8.4-10.2) mg/dL Total Bilirubin 0.7 (0.2-1.3) mg/dL AST 28 (14-36) U/L ALT 12 (4-34) U/L Alkaline Phosphatase 46 (38-126) U/L Total Protein 6.1 L (6.3-8.2) g/dL Albumin 4.0 (3.5-5.0) g/dL Amylase 51 (30-110) U/L Lipase 72 (23-300) U/L Urine Color Urine Appearance (Clear) Urine pH (5.0-8.0) Ur Specific [place] (1.001-1.035) Urine Protein (Negative) Urine Glucose (UA) (Negative) Urine Ketones (Negative) Urine Blood (Negative) Urine Nitrite (Negative) Urine Bilirubin (Negative) Urine Urobilinogen (<2.0) mg/dL Ur Leukocyte Esterase (Negative) Urine RBC (0-5) /hpf Urine WBC (0-5) /hpf Urine Bacteria (None) /hpf Disposition Clinical Impression: Hematuria, UTI (urinary tract infection), Cystitis Disposition: HOME SELF-CARE Condition: Good Instructions (If sedation given, give patient instructions): Urinary Tract Infection in Women (ED) Prescriptions: Sulfamethox-Tmp 800-160Mg [Bactrim DS 800-160 mg] 1 tab PO Q12HR 7 Days #14 tab Is patient prescribed a controlled substance at d/c from ED?: No Referrals: Yefri Martinez DO [Primary Care Provider] - 1-2 days Time of Disposition: 23:59
[2023-11-14] MEDS: SULFAMETHOX-TMP 800-160MG 1 EACH TAB PO STA (00:04)
[2023-11-14] MEDS: cefTRIAXone IN SWFI 1,000 MG/10 ML SYRINGE IVP STA (00:04)
[2023-11-14 00:17] VITALS: BP 139/74; PULSE 98; TEMP 97.6
== END 2023-11-14 00:17 | disposition home or self-care (01) ==
LOC: EC 21:42
DX: N30.91 Cystitis, unspecified with hematuria (principal); Z88.0 Allergy status to penicillin
CPT/HCPCS: 36415; 80053; 82150; 83605; 83690; 85025; 85610; 85730; 81001; 87086; 74177; 99284; 96374; 96375; 96361; J2270; Q9967

== ENCOUNTER 2023-11-16 08:40 | Inpatient (IN) | payer MEDICARE ==
[2023-11-16] MEDS: SODIUM CHLORIDE 0.9% 1,000 ML IV STA (09:38)
[2023-11-16 09:43] LABS: Basophils % (A) 0 %; Eosinophils % (A) 1 %; HCT 42.4 % (34.0-46.0); HGB 14.6 gm/dL (11.4-16.0); Lymphocytes # (A) 0.8 k/uL (1.0-4.8); Lymphocytes % (A) 11 %; MCH 31.1 pg (25.0-35.0); MCHC 34.5 g/dL (31.0-37.0); MCV 90.3 fL (80.0-100.0); Mean Platelet Volume 7.4; Monocytes # (A) 0.5 k/uL (0-1.0); Monocytes % (A) 8 %; Neutrophils # (A) 5.4 k/uL (1.3-7.7); Neutrophils % (A) 79 %; Platelet Count 260 k/uL (150-450); RDW 12.2 % (11.5-15.5); WBC 6.8 k/uL (3.8-10.6)
[2023-11-16 09:56] LABS: ALT 13 U/L (4-34); African American GFR (CKD) >90 (>60 ml/min/1.73 sqM); Albumin 4.3 g/dL (3.5-5.0); Anion Gap 9 mmol/L; Blood Urea Nitrogen 7 mg/dL (7-17); Calcium 8.8 mg/dL (8.4-10.2); Carbon Dioxide 18 mmol/L (22-30); Chloride 98 mmol/L (98-107); Glucose 95 mg/dL (74-99); Lipase 43 U/L (23-300); Non-African American GFR(CKD) 82 (>60 ml/min/1.73 sqM); Sodium 125 mmol/L (137-145); Total Bilirubin 1.3 mg/dL (0.2-1.3); Total Protein 6.6 g/dL (6.3-8.2)
[2023-11-16] MEDS: diphenhydrAMINE 50 MG/ML 1 ML VIAL IVP STA (09:57)
[2023-11-16 09:58] LABS: AST 35 U/L (14-36); Alkaline Phosphatase 45 U/L (38-126); Potassium 4.3 mmol/L (3.5-5.1)
[2023-11-16] MEDS: METOCLOPRAMIDE 5 MG/ML 2 ML VIAL IVP STA (09:58)
--- NOTE | 2023-11-16 10:37 | XR ---
EXAMINATION TYPE: XR KUB DATE OF EXAM: 11/16/2023 Comparison: None Clinical History: 88-year-old female pain Findings: Lung bases are clear. No evidence for free intraperitoneal air. Small air-fluid levels in the mid small bowel. Colonic air remains with air extending distally to the rectum. No significant stool burden. No suspicious calcifications are seen. Impression: 1. Scattered air-fluid levels within the small bowel. Findings could reflect ileus or enteritis. 2. No evidence for free air or bowel obstruction.
--- NOTE | 2023-11-16 11:47 | ED ---
General Adult HPI - General Chief complaint: Nausea/Vomiting/Diarrhea Stated complaint: NV Time Seen by Provider: 11/16/23 08:49 Source: patient, EMS Mode of arrival: EMS Limitations: no limitations - History of Present Illness Initial comments: 88-year-old female presents emergency department with reported nausea and vomiting. States that she is in the emergency room on the with complaints of hematuria and dysuria. Patient seen in the emergency department and found to have UTI. She was started on Bactrim. CT of her abdomen and pelvis was ne gative at that time other than cystitis. Patient states that when she got home she started having nausea and vomiting. She suspected was due to the antibiotic and therefore she called her primary care doctor. Primary care switch her to Macrobid. States she took 3 doses of Bactrim and 2 doses of the Macrobid and continued to have nausea and vomiting. States she hasn't held anything down since Sunday. She admits that her symptoms of UTI have improved. No abdominal pain. No chest pain or shortness of breath - Related Data Home Medications Medication Instructions Recorded Confirmed Pravastatin Sodium [Pravachol] 20 mg PO HS 08/14/17 11/16/23 lisinopriL [Zestril] 10 mg PO HS 08/14/17 11/16/23 L.acidoph,Paracasei, B.lactis 1 cap PO DAILY 02/20/19 11/16/23 [Probiotic] Multivitamins, Thera [Multivitamin 1 tab PO HS 02/20/19 11/16/23 (formulary)] traZODone HCL 100 mg PO HS PRN 03/01/21 11/16/23 Levothyroxine Sodium [Synthroid] 50 mcg PO DAILY 11/16/23 11/16/23 Ondansetron [Zofran] 4 mg PO Q6H PRN 11/16/23 11/16/23 Previous Rx's Medication Instructions Recorded Acetaminophen Tab [Tylenol] 650 mg PO Q6HR PRN tab 11/17/23 Apixaban [Eliquis] 2.5 mg PO BID #60 tab 11/17/23 Cefdinir [Omnicef] 300 mg PO Q12HR #10 capsule 11/17/23 Metoprolol Tartrate [Lopressor] 25 mg PO BID #60 tab 11/17/23 Allergies Allergy/AdvReac Type Severity Reaction Status Date / Time Penicillins Allergy Swelling Verified 11/16/23 13:08 Review of Systems ROS Statement: Those systems with pertinent positive or pertinent negative responses have been documented in the HPI. ROS Other: All systems not noted in ROS Statement are negative. Past Medical History Past Medical History: Hyperlipidemia Additional Past Medical History / Comment(s): diverticulosis, small hiatal hernia, benign liver cyst. History of Any Multi-Drug Resistant Organisms: None Reported Past Surgical History: Appendectomy, Hysterectomy Additional Past Surgical History / Comment(s): EGD, colonoscopy, R shoulder arthroscopy Past Anesthesia/Blood Transfusion Reactions: No Reported Reaction Past Psychological History: No Psychological Hx Reported Smoking Status: Never smoker Past Alcohol Use History: None Reported Past Drug Use History: None Reported - Past Family History Father History Unknown: Yes Mother Additional Family Medical History / Comment(s): Mother had osteoporosis. She at the age of 69yrs, pt does not know cause of . General Exam Limitations: no limitations General appearance: alert, in no apparent distress Head exam: Present: atraumatic, normocephalic, normal inspection Eye exam: Present: normal appearance, PERRL, EOMI. Absent: scleral icterus, conjunctival injection, periorbital swelling ENT exam: Present: normal exam, mucous membranes moist Neck exam: Present: normal inspection. Absent: tenderness, meningismus, lymphadenopathy Respiratory exam: Present: normal lung sounds bilaterally. Absent: respiratory distress, wheezes, rales, rhonchi, stridor Cardiovascular Exam: Present: regular rate, normal rhythm, normal heart sounds. Absent: systolic murmur, diastolic murmur, rubs, gallop, clicks GI/Abdominal exam: Present: soft, normal bowel sounds. Absent: distended, tenderness, guarding, rebound, rigid Extremities exam: Present: normal inspection, full ROM, normal capillary refill. Absent: tenderness, pedal edema, joint swelling, calf tenderness Back exam: Present: normal inspection Neurological exam: Present: alert, oriented X3, CN II-XII intact Psychiatric exam: Present: normal affect, normal mood Skin exam: Present: warm, dry, intact, normal color. Absent: rash Course Vital Signs 11/16/23 11/16/23 11/16/23 08:45 13:00 14:00 Temperature 97.4 F L Pulse Rate 77 Pulse Rate [ 78 83 Radiographic Technologist ] Respiratory 18 16 16 Rate Blood Pressure 167/85 Blood Pressure 142/81 142/77 [Left Arm] O2 Sat by Pulse 99 98 96 Oximetry 11/16/23 11/16/23 15:00 16:55 Temperature Pulse Rate 81 78 Pulse Rate [ Radiographic Technologist ] Respiratory 18 18 Rate Blood Pressure 134/76 124/70 Blood Pressure [Left Arm] O2 Sat by Pulse 98 98 Oximetry Medical Decision Making - Medical Decision Making Was pt. sent in by a medical professional or institution (, PA, TECHNICAL DATA ANALYST, urgent care, hospital, or [facility]...) When possible be specific @ -No Did you speak to anyone other than the patient for history (EMS, parent, family, police, friend...)? What history was obtained from this source @ -EMS and sons Did you review nursing and triage notes (agree or disagree)? Why? @ -I reviewed and agree with nursing and triage notes Were old charts reviewed (outside hosp., previous admission, EMS record, old EKG, old radiological studies, urgent care reports/EKG's, [facility] records)? Report findings @ -I reviewed ED visit and culture results from the when the patient was seen for her symptoms and placed on antibiotics Differential Diagnosis (chest pain, altered mental status, abdominal pain women, abdominal pain men, vaginal bleeding, weakness, fever, dyspnea, syncope, headache, dizziness, GI bleed, back pain, seizure, CVA, palpatations, mental health, musculoskeletal)? @ -cystitis, uti, nephrolithiasis, dementia EKG interpreted by me (3pts min.). @ -yes and demonstrates sinus rhythm with a rate of 75. TN interval 235. QRS 90. QTC of 436. No acute ST segment elevations or depressions X-rays interpreted by me (1pt min.). @ -None done CT interpreted by me (1pt min.). @ -None done U/S interpreted by me (1pt. min.). @ -None done What testing was considered but not performed or refused? (CT, X-rays, U/S, labs)? Why? @ -None What meds were considered but not given or refused? Why? @ -None Did you discuss the management of the patient with other professionals (professionals i.e. , SALMA, TECHNICAL DATA ANALYST, lab, RT, psych nurse, pediatric social worker, driver license reviewing officer, teacher, fourth officer, protective services case worker)? Give summary @ -Spoke with dr. wiseman for admission Was smoking cessation discussed for >3mins.? @ -No Was critical care preformed (if so, how long)? @ -yes, for diagnosis of new onset A-fibdiagnosis of new onset afib Were there social determinants of health that impacted care today? How? (Homelessness, low income, unemployed, alcoholism, drug addiction, transportation, low edu. Level, literacy, decrease access to med. care, senior care, rehab)? @ -No Was there de-escalation of care discussed even if they declined (Discuss DNR or withdrawal of care, Hospice)? DNR status @ -No What co-morbidities impacted this encounter? (DM, HTN, Smoking, COPD, CAD, Cancer, CVA, ARF, Chemo, Hep., AIDS, mental health diagnosis, sleep apnea, morbid obesity)? @ -None Was patient admitted / discharged? Hospital course, mention meds given and route, prescriptions, significant lab abnormalities, going to OR and other pertinent info. @ -Upon arrival patient seen and evaluated in room 11. Thorough history and physical exam was performed. IV access was established and laboratory studies are conducted. Patient given IV fluids and antiemetics. Report from the was reviewed. Patient does go into A-fib with a rapid rate. Heparin and Cardizem are ordered. I recommended admission due to hyponatremia. Patient was agreeable to this. Bridging orders are placed. Spoke with Dr. Wiseman for admission. Consulted cardiology Undiagnosed new problem with uncertain prognosis? @ -No Drug Therapy requiring intensive monitoring for toxicity (Heparin, Nitro, Insulin, Cardizem)? @ -Cardizem and nitro Were any procedures done? @ -No Diagnosis/symptom? @ -Acute nausea and vomiting, acute hyponatremia, recently diagnosed UTI, new onset A-fib with RVR Acute, or Chronic, or Acute on Chronic? @ -Acute Uncomplicated (without systemic symptoms) or Complicated (systemic symptoms)? @ -Complicated Side effects of treatment? @ -No Exacerbation, Progression, or Severe Exacerbation? @ -No Poses a threat to life or bodily function? How? (Chest pain, [place], [place], pneumonia, PE, COPD, DKA, ARF, appy, cholecystitis, CVA, Diverticulitis, Homicidal, Suicidal, threat to staff... and all critical care pts) @ -No - Lab Data Result diagrams: 11/17/23 07:11 11/17/23 07:11 Lab Results 11/16/23 11/16/23 11/16/23 Range/Units 09:33 09:33 09:33 WBC 6.8 (3.8-10.6) k/uL RBC 4.70 (3.80-5.40) m/uL Hgb 14.6 (11.4-16.0) gm/dL Hct 42.4 (34.0-46.0) % MCV 90.3 (80.0-100.0) fL MCH 31.1 (25.0-35.0) pg MCHC 34.5 (31.0-37.0) g/dL RDW 12.2 (11.5-15.5) % Plt Count 260 (150-450) k/uL MPV 7.4 Neutrophils % 79 % Lymphocytes % 11 % Monocytes % 8 % Eosinophils % 1 % Basophils % 0 % Neutrophils # 5.4 (1.3-7.7) k/uL Lymphocytes # 0.8 L (1.0-4.8) k/uL Monocytes # 0.5 (0-1.0) k/uL Eosinophils # 0.0 (0-0.7) k/uL Basophils # 0.0 (0-0.2) k/uL Sodium 125 L (137-145) mmol/L Potassium 4.3 (3.5-5.1) mmol/L Chloride 98 (98-107) mmol/L Carbon Dioxide 18 L (22-30) mmol/L Anion Gap 9 mmol/L BUN 7 (7-17) mg/dL Creatinine 0.60 (0.52-1.04) mg/dL Est GFR (CKD-EPI)AfAm >90 (>60 ml/min/1.73 sqM) Est GFR (CKD-EPI)NonAf 82 (>60 ml/min/1.73 sqM) Glucose 95 (74-99) mg/dL Plasma Lactic Acid [place] (0.7-2.0) mmol/L Calcium 8.8 (8.4-10.2) mg/dL Total Bilirubin 1.3 (0.2-1.3) mg/dL AST 35 (14-36) U/L ALT 13 (4-34) U/L Alkaline Phosphatase 45 (38-126) U/L Total Protein 6.6 (6.3-8.2) g/dL Albumin 4.3 (3.5-5.0) g/dL Lipase 43 (23-300) U/L Urine Color Colorless Urine Appearance Clear (Clear) Urine pH 6.0 (5.0-8.0) Ur Specific [place] 1.005 (1.001-1.035) Urine Protein Negative (Negative) Urine Glucose (UA) Negative (Negative) Urine Ketones 2+ H (Negative) Urine Blood Trace H (Negative) Urine Nitrite Negative (Negative) Urine Bilirubin Negative (Negative) Urine Urobilinogen <2.0 (<2.0) mg/dL Ur Leukocyte Esterase Negative (Negative) Urine RBC 2 (0-5) /hpf Urine WBC <1 (0-5) /hpf Urine Mucus Rare H (None) /hpf 11/16/23 Range/Units 09:33 WBC (3.8-10.6) k/uL RBC (3.80-5.40) m/uL Hgb (11.4-16.0) gm/dL Hct (34.0-46.0) % MCV (80.0-100.0) fL MCH (25.0-35.0) pg MCHC (31.0-37.0) g/dL RDW (11.5-15.5) % Plt Count (150-450) k/uL MPV Neutrophils % % Lymphocytes % % Monocytes % % Eosinophils % % Basophils % % Neutrophils # (1.3-7.7) k/uL Lymphocytes # (1.0-4.8) k/uL Monocytes # (0-1.0) k/uL Eosinophils # (0-0.7) k/uL Basophils # (0-0.2) k/uL Sodium (137-145) mmol/L Potassium (3.5-5.1) mmol/L Chloride (98-107) mmol/L Carbon Dioxide (22-30) mmol/L Anion Gap mmol/L BUN (7-17) mg/dL Creatinine (0.52-1.04) mg/dL Est GFR (CKD-EPI)AfAm (>60 ml/min/1.73 sqM) Est GFR (CKD-EPI)NonAf (>60 ml/min/1.73 sqM) Glucose (74-99) mg/dL Plasma Lactic Acid [place] 1.1 (0.7-2.0) mmol/L Calcium (8.4-10.2) mg/dL Total Bilirubin (0.2-1.3) mg/dL AST (14-36) U/L ALT (4-34) U/L Alkaline Phosphatase (38-126) U/L Total Protein (6.3-8.2) g/dL Albumin (3.5-5.0) g/dL Lipase (23-300) U/L Urine Color Urine Appearance (Clear) Urine pH (5.0-8.0) Ur Specific [place] (1.001-1.035) Urine Protein (Negative) Urine Glucose (UA) (Negative) Urine Ketones (Negative) Urine Blood (Negative) Urine Nitrite (Negative) Urine Bilirubin (Negative) Urine Urobilinogen (<2.0) mg/dL Ur Leukocyte Esterase (Negative) Urine RBC (0-5) /hpf Urine WBC (0-5) /hpf Urine Mucus (None) /hpf Disposition Clinical Impression: Hyponatremia, New onset a-fib, Nausea & vomiting Disposition: ADMITTED IP TO THIS [facility] Condition: Stable Is patient prescribed a controlled substance at d/c from ED?: No Time of Disposition: 12:29 Decision to Admit Reason: Admit from EC Decision Date: 11/16/23 Decision Time: 12:29
--- NOTE | 2023-11-16 12:04 | P.HPIM ---
History of Present Illness H&P Date: 11/16/23 History of Presenting Illness: Patient is a very pleasant 88-year-old female with a past medical history of hypertension, hyperlipidemia, hypothyroidism and recently diagnosed UTI. She presented to the emergency department with a chief complaint of hematuria, dysuria, Urinary frequency, nausea, and vomiting. Patient reports she was seen in the emergency department on 11/13/23 and was diagnosed with a UTI and was discharged home on antibiotic. She reports taking Bactrim as prescribed, but states that her symptoms continued to worsen and she called her PCP who switched her antibiotic to Macrobid. Patient reports Despite changing of antibiotics her symptoms persisted and she hasn't been able to hold down any food or fluids down for nearly 3 days. She denies having any fevers, chills, headache, lightheadedness, dizziness, chest pain, palpitations, Shortness of breath, abdominal pain or discomfort, diarrhea, or constipation (reports last BM was 2 days ago and describes a a loose stool) or any other complaints at this time. Upon arrival to our facility, patient underwent evaluation in the emergency department. Vital signs upon arrival show blood pressure 167/85, heart rate 77, respiratory rate 18, temp 97.4F, SpO2 99% on room air.EKG was completed showing normal sinus rhythm at 75 bpm with first-degree AV block with [place] interval of 235 ms, no significant T-wave or ST abnormalities showing no signs of acute ischemia upon personal review and interpretation.KUB was completed showing scattered air- fluid levels within the small bowel, findings concerning for ileus or enteritis. Labs completed and reviewed. CBC was unremarkable with normal WBC count of 6.8, hemoglobin of 14.6, platelet count of 260,000. Coagulation profile normal findi ngs. BMP showing hyponatremia with sodium of 125 and hypocarbia with bicarbonate of 18. Blood glucose was 95. Lactic acid was 1.1. Liver profile is unremarkable. Urinalysis showing 2+ ketones and trace blood otherwise negative. Patient was admitted under our services at this time. Upon examination at bedside patient was noted to be significantly tachycardic with irregularly irregular rate and was placed on manual plate filler showing A. fib RVR with heart rate between 140s to 170s. Patient asymptomatic. Order placed for repeat EKG and patient being given Cardizem bolus followed by infusion and started on heparin infusion. Consult placed to cardiology. Review of systems: Pertinent positives and negatives as discussed in HPI, a complete review of systems was performed and all other systems are negative. Physical exam: Vital signs reviewed and stable. General: Nontoxic, no distress and appears stated age. Derm: Skin warm and dry, normal coloration for ethnicity. Head: Atraumatic, normocephalic and symmetric. Eyes: EOMs intact, no lid lag, and anicteric sclera Mouth: no lip lesions, mucus membranes moist Cardiovascular: Irregularly irregular, no discernible murmur, positive posterior tibial pulses bilaterally, and cap refill < 2 seconds. Lungs: Respirations even, regular, and unlabored on room air. Lungs CTA bilaterally, no rhonchi, no rales, no wheezing, and no accessory muscle usage. Abdominal: soft, nontender to palpation, no guarding, no appreciable organomegaly. CVA tenderness bilaterally. Ext: ROM intact. No gross muscle atrophy, no edema, no contractures Neuro: Speech clear, face symmetrical and CN II-XII grossly intact with no noted focal neuro deficits Psych: Alert and oriented to person, place, time, and situation. Appropriate and pleasant affect. Assessment and Plan of Care: Atrial fibrillation with RVR, New-onset -EKG showing atrial fibrillation with RVR at 131 bpm. -Order placed for Cardizem bolus 10 mg IVP followed by Cardizem infusion at 5 mg per hour. -Patient started on low intensity heparin infusion at 12 units per kilogram per hour with close monitoring of PTT for goal therapeutic range between 44 and 79 seconds. -Echocardiogram to be completed. -Consult please cardiology. -Telemetry monitoring. -Troponin and TSH with reflex free T4 to be obtained. -Will also start pt on metoprolol 25 mg twice a day pending further recommendations of manager sterile. Hyponatremia Recently diagnosed UTI now with hematuria, urinary frequency, nausea/vomiting, and CVA tenderness. Rule out pyelonephritis. Abnormal abdominal X-ray, concerning for Ileus vs enteritis -Current urinalysis negative for infection, however pending culture results we will start patient emperically on Rocephin 2g daily. -Order placed for ultrasound renals, ureters, bladder. If symptoms persist, may consider repeating computed tomography scan initially completed 11/13/23 -Order placed for bladder scan to monitor for postvoid residual/retention. Monitor urinary output. -Order placed for blood cultures and urine culture. Follow up on results. -Pt denies diarrhea or constipation, reports last BM 2 days ago and describes as a loose stool. -Compazine 10 mg IVP every 6 hours as needed for nausea or vomiting -Gentle IV fluid hydration with 0.9% NS at 100 cc/hour -Repeat BMP at 6 pm and again tomorrow morning to follow up on hyponatremia. -General Sx consulted for possible ileus, appreciate recommendations -Clear liquid diet pending recommendations from General sx. Hypertension -Continue daily medication regimen with Lisinopril 10 mg nightly. Hyperlipidemia -Continue daily medication regimen with pravastatin 20 mg nightly. Hypothyroidism -Continue daily medication regimen with levothyroxine 50 g daily. Data and Imaging reviewed: -As stated above in HPI The patient is admitted with an anticipated greater than 2 midnight stay for evaluation of atrial fib with RVR, hyponatremia and concerns of pyelonephritis and ileus. CODE STATUS: Full Code DVT prophylaxis: Heparin Anticipated discharge date: Pending clinical course Anticipated discharge place: Home Patient was seen independently by Nurse Practitioner. This document was prepared using [employer] dictation software. Please allow for errors in plywood stock grader while rare they do occur. . Kei Gunderson NP rendered care for this patient independently, reviewed the findings and plan as documented in the note above. I did not physically speak with or examine the patient on this date. Past Medical History Past Medical History: Hyperlipidemia Additional Past Medical History / Comment(s): diverticulosis, small hiatal hernia, benign liver cyst. History of Any Multi-Drug Resistant Organisms: None Reported Past Surgical History: Appendectomy, Hysterectomy Additional Past Surgical History / Comment(s): EGD, colonoscopy, R shoulder arthroscopy Past Anesthesia/Blood Transfusion Reactions: No Reported Reaction Past Psychological History: No Psychological Hx Reported Smoking Status: Never smoker Past Alcohol Use History: None Reported Past Drug Use History: None Reported - Past Family History Father History Unknown: Yes Mother Additional Family Medical History / Comment(s): Mother had osteoporosis. She at the age of 69yrs, pt does not know cause of . Medications and Allergies Home Medications Medication Instructions Recorded Confirmed Type Pravastatin Sodium [Pravachol] 20 mg PO HS 08/14/17 11/16/23 History lisinopriL [Zestril] 10 mg PO HS 08/14/17 11/16/23 History L.acidoph,Paracasei, B.lactis 1 cap PO DAILY 02/20/19 11/16/23 History [Probiotic] Multivitamins, Thera [Multivitamin 1 tab PO HS 02/20/19 11/16/23 History (formulary)] Propranolol [Inderal] 40 mg PO BID 02/20/19 11/16/23 History traZODone HCL 100 mg PO HS PRN 03/01/21 11/16/23 History Levothyroxine Sodium [Synthroid] 50 mcg PO DAILY 11/16/23 11/16/23 History Nitrofurantoin Monohyd/M-Cryst 100 mg PO BID 11/16/23 11/16/23 History [Macrobid] Ondansetron [Zofran] 4 mg PO Q6H PRN 11/16/23 11/16/23 History Allergies Allergy/AdvReac Type Severity Reaction Status Date / Time Penicillins Allergy Swelling Verified 11/16/23 13:08 Physical Exam Vitals: Vital Signs Temp Pulse Resp BP Pulse Ox 11/16/23 08:45 97.4 F L 77 18 167/85 99 Intake and Output 11/15/23 11/16/23 11/16/23 22:59 06:59 14:59 Other: Weight 54.431 kg Results CBC & Chem 7: 11/16/23 09:33 11/16/23 09:33 Labs: Abnormal Lab Results - Last 24 Hours (Table) 11/16/23 11/16/23 Range/Units 09:33 09:33 Lymphocytes # 0.8 L (1.0-4.8) k/uL Sodium 125 L (137-145) mmol/L Carbon Dioxide 18 L (22-30) mmol/L
[2023-11-16 12:23] LABS: Appearance,Urine Clear (Clear); Bilirubin,Urine Negative (Negative); Blood,Urine Trace (Negative); Color,Urine Colorless; Glucose,Urine (UA) Negative (Negative); Ketones,Urine 2+ (Negative); Leukocyte Esterase,Urine Negative (Negative); Mucus,Urine Rare /hpf; Nitrite,Urine Negative (Negative); Protein,Urine Negative (Negative); RBC,Urine 2 /hpf (0-5); Specific Gravity,Urine 1.005 (1.001-1.035); Urobilinogen,Urine <2.0 mg/dL (<2.0); WBC,Urine <1 /hpf (0-5)
[2023-11-16] MEDS ORDERED: HEPARIN SODIUM 1,000 UN/ML (10ML VL) IV PRN (12:31)
[2023-11-16] MEDS ORDERED: HYDROcodone/APAP 5-325MG 1 EACH TAB PO PRN (12:36)
[2023-11-16] MEDS ORDERED: ACETAMINOPHEN TAB 325 MG TAB PO PRN (12:36)
[2023-11-16] MEDS ORDERED: NALOXONE 0.4 MG/ML 1 ML VIAL IV PRN (12:37)
[2023-11-16] MEDS: DILTIAZEM DRIP BOLUS FROM BAG 1 MG SOLN IV STA (13:11)
[2023-11-16] MEDS: DILTIAZEM 125 MG in SODIUM CHLORIDE 0.9% 100 ML IV SCH (13:12)
[2023-11-16] MEDS: PROCHLORPERAZINE INJ 10 MG/2 ML VIAL IVP PRN (13:19)
[2023-11-16 13:39] LABS: Partial Thromboplastin Time 27.6 sec (22.0-30.0); Prothrombin Time 11.3 sec (10.0-12.5)
[2023-11-16] MEDS: HEPARIN SODIUM 1,000 UN/ML (10ML VL) IV ONE (14:11)
[2023-11-16] MEDS: HEPARIN SOD,PORK IN 0.45% NACL 25,000 UNIT in 0.45% NACL 1 250ML.BAG IV SCH (14:18)
--- NOTE | 2023-11-16 17:22 | US ---
EXAMINATION TYPE: US renals and bladder DATE OF EXAM: 11/16/2023 COMPARISON: 11/13/2023 CLINICAL INDICATION: Female, 88 years old with history of hematuria, frequency, n/v and CVA tendernes s; EXAM MEASUREMENTS: Right Kidney: 9.6 x 3.7 x 4.1 cm Left Kidney: 10.0 x 4.8 x 3.8 cm Right Kidney: no evidence of hydronephrosis Left Kidney: no evidence of hydronephrosis Bladder: wnl Bilateral Jets seen: no There is no evidence for hydronephrosis at this point in time. No nephrolithiasis is seen. No prema s are identified. The urinary bladder is anechoic. Bilateral ureteral jets are seen. IMPRESSION: No evidence for obstructive uropathy.
[2023-11-16 18:19] LABS: HCT 41.1 % (34.0-46.0); HGB 13.6 gm/dL (11.4-16.0); MCH 30.5 pg (25.0-35.0); MCHC 33.1 g/dL (31.0-37.0); MCV 92.2 fL (80.0-100.0); Mean Platelet Volume 7.4; Platelet Count 248 k/uL (150-450); RBC 4.46 m/uL (3.80-5.40); RDW 12.7 % (11.5-15.5); WBC 8.8 k/uL (3.8-10.6)
[2023-11-16 18:27] LABS: African American GFR (CKD) >90 (>60 ml/min/1.73 sqM); Anion Gap 13 mmol/L; Blood Urea Nitrogen 7 mg/dL (7-17); Calcium 8.8 mg/dL (8.4-10.2); Carbon Dioxide 13 mmol/L (22-30); Chloride 104 mmol/L (98-107); Glucose 123 mg/dL (74-99); Non-African American GFR(CKD) 81 (>60 ml/min/1.73 sqM); Potassium 3.7 mmol/L (3.5-5.1); Sodium 130 mmol/L (137-145)
[2023-11-16] MEDS: SODIUM CHLORIDE 0.9% 1,000 ML IV SCH (19:02)
[2023-11-16] MEDS: MULTIVITAMINS, THERA 1 EACH TAB PO SCH (20:28)
[2023-11-16] MEDS: PRAVASTATIN SODIUM 20 MG TAB PO SCH (20:28)
[2023-11-16] MEDS: METOPROLOL TARTRATE 25 MG TAB PO SCH (20:28)
[2023-11-16] MEDS: traZODone HCL 100 MG TAB PO PRN (20:28)
[2023-11-16] MEDS: lisinopriL 10 MG TAB PO SCH (20:28)
[2023-11-16] MEDS: MAGNESIUM SULFATE-WATER PMX 4 GM in WATER FOR INJECTION 1 100ML.BAG IVPB ONE (21:34)
[2023-11-17] MEDS: NON FORMULARY DRUG (L.Acidoph,Paracasei, B.Lactis [Probiotic] 1 EACH Capsule) PO SCH (07:46)
[2023-11-17 07:57] LABS: Basophils % (A) 0 %; Eosinophils # (A) 0.1 k/uL (0-0.7); Eosinophils % (A) 2 %; HCT 40.1 % (34.0-46.0); HGB 13.4 gm/dL (11.4-16.0); Lymphocytes # (A) 1.3 k/uL (1.0-4.8); Lymphocytes % (A) 21 %; MCH 30.6 pg (25.0-35.0); MCHC 33.5 g/dL (31.0-37.0); MCV 91.6 fL (80.0-100.0); Monocytes # (A) 0.5 k/uL (0-1.0); Monocytes % (A) 9 %; Neutrophils # (A) 4.1 k/uL (1.3-7.7); Neutrophils % (A) 66 %; Platelet Count 258 k/uL (150-450); RBC 4.38 m/uL (3.80-5.40); RDW 12.5 % (11.5-15.5); WBC 6.2 k/uL (3.8-10.6)
[2023-11-17] MEDS: LEVOTHYROXINE 50 MCG TAB PO SCH (08:04)
[2023-11-17 08:06] LABS: Partial Thromboplastin Time 78.4 sec (22.0-30.0); Prothrombin Time 11.1 sec (10.0-12.5)
[2023-11-17 08:55] LABS: African American GFR (CKD) 76 (>60 ml/min/1.73 sqM); Anion Gap 8 mmol/L; Blood Urea Nitrogen 10 mg/dL (7-17); Calcium 8.7 mg/dL (8.4-10.2); Carbon Dioxide 18 mmol/L (22-30); Chloride 106 mmol/L (98-107); Glucose 82 mg/dL (74-99); Non-African American GFR(CKD) 66 (>60 ml/min/1.73 sqM); Potassium 3.9 mmol/L (3.5-5.1); Sodium 132 mmol/L (137-145)
[2023-11-17 09:31] VITALS: TEMP 97.8
--- NOTE | 2023-11-17 11:31 | P.DS ---
Providers Date of admission: 11/16/23 12:37 Expected date of discharge: 11/17/23 Attending physician: Gabriel Sharma MD Consults: 11/16/23 12:31 Consult Physician Routine Consulting Provider: Sukhjinder Abernathy Consult Reason/Comments: new onset a-fib RVR Do you want consulting provider notified?: Yes 11/16/23 16:30 Consult Physician Routine Consulting Provider: Chino Childress Consult Reason/Comments: ileus Do you want consulting provider notified?: Yes Primary care physician: [facility] Course: Atrial fibrillation with RVR, New-onset Hyponatremia Complicated urinary tract infection, improving Abnormal abdominal X-ray, concerning for Ileus vs enteritis Hypertension Hyperlipidemia Hypothyroidism History of Presenting Illness: Patient is a very pleasant 88-year-old female with a past medical history of hypertension, hyperlipidemia, hypothyroidism and recently diagnosed UTI. She presented to the emergency department with a chief complaint of hematuria, dysuria, Urinary frequency, nausea, and vomiting. Patient reports she was seen in the emergency department on 11/13/23 and was diagnosed with a UTI and was discharged home on antibiotic. She reports taking Bactrim as prescribed, but states that her symptoms continued to worsen and she called her PCP who switched her antibiotic to Macrobid. Upon arrival to our facility, patient underwent evaluation in the emergency department. Vital signs upon arrival show blood pressure 167/85, heart rate 77, respiratory rate 18, temp 97.4F, SpO2 99% on room air.EKG was completed showing normal sinus rhythm at 75 bpm with first- degree AV block with IN interval of 235 ms, no significant T-wave or ST abnormalities showing no signs of acute ischemia upon personal review and interpretation.KUB was completed showing scattered air-fluid levels within the small bowel, findings concerning for ileus or enteritis. Labs completed and reviewed. CBC was unremarkable with normal WBC count of 6.8, hemoglobin of 14.6, platelet count of 260,000. Coagulation profile normal findings. BMP showing hyponatremia with sodium of 125 and hypocarbia with bicarbonate of 18. Blood glucose was 95. Lactic acid was 1.1. Liver profile is unremarkable. Urinalysis showing 2+ ketones and trace blood otherwise negative. Patient was admitted under our services at this time. Upon examination at bedside patient was noted to be significantly tachycardic with irregularly irregular rate and was placed on registered nurse cardiac telemetry showing A. fib RVR with heart rate between 140s to 170s. Patient asymptomatic. Order placed for repeat EKG and patient being given Cardizem bolus followed by infusion and started on heparin infusion. Consult placed to cardiology. Cardiology in itiated magnesium infusion to cardiovert the patient, which was successful. She was subsequently started on metoprolol 25 mg twice daily as well as Eliquis 2.5 mg twice daily. She reports significant improvement in her dysuria, suprapubic pain. She was able to tolerate a diet, and was having stools which were kind of loose. Patient denied nausea, vomiting on discharge. She was counseled on co ntinuing antibiotics for total 7-day course, for an additional 5 days following discharge with cefdinir 300 mg twice daily, starting tomorrow morning. Her last dose of ceftriaxone was 805 on 11/16. She will also follow-up with electrophysiology in 1 to 2 weeks. Her hyponatremia was improving to 132 from 125 with IV fluids. She will also follow-up with her primary care physician for transitions of care visit. I spent 38 minutes coordinating this discharge Gen: In NAD, non-toxic HEENT: normocephalic, atraumatic, hearing acuity is intant, mucous membranes moist CVS: perfusing all extremities well, no pitting edema, Respiratory: symmetric chest expansion, no accessory muscle use, GI: soft, NTTP, ND, : no suprapubic tenderness, no CVA tenderness MSK/Derm: no rashes, cyanosis Neuro: CN II-XII intact, no motor weakness, Psych: cooperative, euthymic mood, judgment and insight is intact Patient Condition at Discharge: Stable Plan - Discharge Summary Discharge Rx Participant: No New Discharge Prescriptions: New Metoprolol Tartrate [Lopressor] 25 mg PO BID #60 tab Cefdinir [Omnicef] 300 mg PO Q12HR #10 capsule Acetaminophen Tab [Tylenol] 650 mg PO Q6HR PRN tab PRN Reason: Mild Pain Or Fever > 100.5 Apixaban [Eliquis] 2.5 mg PO BID #60 tab Continue Pravastatin Sodium [Pravachol] 20 mg PO HS lisinopriL [Zestril] 10 mg PO HS Multivitamins, Thera [Multivitamin (formulary)] 1 tab PO HS L.acidoph,Paracasei, B.lactis [Probiotic] 1 cap PO DAILY Levothyroxine Sodium [Synthroid] 50 mcg PO DAILY traZODone HCL 100 mg PO HS PRN PRN Reason: Insomnia Ondansetron [Zofran] 4 mg PO Q6H PRN PRN Reason: Nausea And Vomiting Discontinued Propranolol [Inderal] 40 mg PO BID Nitrofurantoin Monohyd/M-Cryst [Macrobid] 100 mg PO BID Discharge Medication List Pravastatin Sodium [Pravachol] 20 mg PO HS 08/14/17 [History] lisinopriL [Zestril] 10 mg PO HS 08/14/17 [History] L.acidoph,Paracasei, B.lactis [Probiotic] 1 cap PO DAILY 02/20/19 [History] Multivitamins, Thera [Multivitamin (formulary)] 1 tab PO HS 02/20/19 [History] traZODone HCL 100 mg PO HS PRN 03/01/21 [History] Levothyroxine Sodium [Synthroid] 50 mcg PO DAILY 11/16/23 [History] Ondansetron [Zofran] 4 mg PO Q6H PRN 11/16/23 [History] Acetaminophen Tab [Tylenol] 650 mg PO Q6HR PRN tab 11/17/23 [Rx] Apixaban [Eliquis] 2.5 mg PO BID #60 tab 11/17/23 [Rx] Cefdinir [Omnicef] 300 mg PO Q12HR #10 capsule 11/17/23 [Rx] Metoprolol Tartrate [Lopressor] 25 mg PO BID #60 tab 11/17/23 [Rx] Follow up Appointment(s)/Referral(s): Yefri Martinez DO [Primary Care Provider] - 1-2 days Discharge Disposition: HOME SELF-CARE
[2023-11-17] MEDS: APIXABAN 2.5 MG TABLET PO SCH (11:45)
[2023-11-17 12:05] VITALS: BP 156/81; PULSE 77; RESP 16
--- NOTE | 2023-11-17 12:43 | CA ---
Transthoracic Echo Report Name: Allison Santoro Age: 88 Gender: F : 1935 Exam Date: 11/16/2023 15:55 Exam Location: [facility] Ht (in): 62 Wt (lb): 120 Ordering Physician: Kei Gunderson Attending/Referring Phys: Lens Inserter Armida Mccormack RDCS Procedure CPT: Indications: new onset a-fib RVR, eval structure and function Cardiac Hx: Technical Quality: Fair Contrast 1: Total Dose (mL): Contrast 2: Total Dose (mL): MEASUREMENTS (Male / Female) Normal Values 2D ECHO LV Diastolic Diameter PLAX 3.1 cm 4.2 - 5.9 / 3.9 - 5.3 cm LV Systolic Diameter PLAX 1.8 cm IVS Diastolic Thickness 0.9 cm 0.6 - 1.0 / 0.6 - 0.9 cm LVPW Diastolic Thickness 1.0 cm 0.6 - 1.0 / 0.6 - 0.9 cm LV Relative Wall Thickness 0.6 RV Internal Dim ED PLAX 2.4 cm LA Volume 31.1 cm??? 18 - 58 / 22 - 52 cm??? LA Volume Index 20.1 cm???/m??? 16 - 28 cm???/m??? M-MODE Aortic Root Diameter MM 2.6 cm LA Systolic Diameter MM 2.9 cm LA Ao Ratio MM 1.1 AV Cusp Separation MM 1.5 cm DOPPLER AV Peak Velocity 154.0 cm/s AV Peak Gradient 9.5 mmHg AV Mean Velocity 98.9 cm/s AV Mean Gradient 4.4 mmHg AV Velocity Time Integral 30.9 cm AI Peak Velocity 367.7 cm/s AI Peak Gradient 54.1 mmHg AI Pressure Half Time 491.5 ms LVOT Peak Velocity 113.3 cm/s LVOT Peak Gradient 5.1 mmHg LVOT Velocity Time Integral 22.4 cm MV Area PHT 3.6 cm??? Mitral E Point Velocity 59.7 cm/s Mitral A Point Velocity 83.9 cm/s Mitral E to A Ratio 0.7 MV Deceleration Time 210.0 ms MV E' Velocity 5.7 cm/s Mitral E to MV E' Ratio 10.5 TR Peak Velocity 154.9 cm/s TR Peak Gradient 9.6 mmHg Right Ventricular Systolic Press 14.6 mmHg FINDINGS Left Ventricle Normal left ventricular size, wall thickness, systolic function with no obvious regional wall motion abnormalities. Normal left ventricular diastolic filling pattern for age. The ejection fraction is visually estimated at 55-60 %. Right Ventricle The right ventricle is normal in size and function. Right Atrium The right atrium is normal in size. Left Atrium The left atrium is normal in size. Mitral Valve Structurally normal mitral valve without significant stenosis or prolapse. Mild mitral regurgitation. Aortic Valve Structurally normal aortic valve without significant sclerosis or stenosis. There is trace to mild aortic regurgitation. Tricuspid Valve Structurally normal tricuspid valve without significant stenosis. Pulmonary artery systolic pressure is normal. Mild tricuspid regurgitation. Pulmonic Valve Structurally normal pulmonic valve without significant stenosis. There is no pulmonic regurgitation. Pericardium Normal pericardium without effusion. Aorta Normal aortic root dimension. CONCLUSIONS Normal LV size and systolic function Normal RV size and systolic function No significant valvular abnormality Previewed by: Dr. Sukhjinder Abernathy MD (Electronically Signed) Final Date: 17 November 2023 12:42
[2023-11-17 12:53] LABS: Magnesium 2.7 mg/dL (1.6-2.3)
--- NOTE | 2023-11-17 14:26 | P.CRDCN ---
History of Present Illness Consult date: 11/17/23 Consult reason: atrial fibrillation History of present illness: the patient is an 88-year-old female who presented to the hospital with urinary tract and abdominal discomfort symptoms. Cardiology has been consulted for new onset of A. fib with RVR with heart rates between the 140s to 170s. Patient was started on a heparin drip and was given 4 g of IV magnesium bolus over one hour and spontaneously converted back to sinus mechanism. patient was started on low- dose beta blockers. DIAGNOSTICS: initial EKG shows sinus rhythm with first-degree AV block Telemetry revealed A. fib with RVR echocardiogram reveals preserved LV function with no significant valvular abnormalities lab data: WBC 6.2, hemoglobin 13.4, hematocrit 40.1, platelet 256, sodium 132, potassium 3.9, BUN 10, creatinine 0.81, magnesium 2.7, troponin 0.01, TSH 1.9 REVIEW OF SYSTEMS: No fever or chills. No cough or expectoration. No diaphoresis. Patient denies headache, dizziness, blurred vision, double vision. Denies any black stools or blood in his stools. Denies dysuria or hematuria. No muscle weakness or numbness. no chest pain or pressure.mild abdominal discomfo rt, but has mostly improved. PHYSICAL EXAMINATION: This is a 88-year-old female in no apparent distress at the time of my examination. HEENT: Head is atraumatic, normocephalic. Pupils are equal, round. There is no jugular venous distention. No carotid bruit is heard. CHEST EXAMINATION: Lungs are clear to auscultation. No chest wall tenderness is noted on palpation or with deep breathing. HEART EXAMINATION: Heart regular rate and rhythm. S1, S2 heard. No murmurs, gallops or rub. ABDOMEN: Soft, nontender. Bowel sounds are heard. No organomegaly noted. EXTREMITIES: 2+ peripheral pulses with no evidence of peripheral edema and no calf tenderness noted. NEUROLOGIC EXAMINATION: Patient is awake, alert and oriented x3. FINAL ASSESSMENT AND PLAN: abdominal discomfort with nausea and vomiting new onset of A. fib with RVR Hypertension Hyperlipidemia PLAN: transition to oral anticoagulation Continue beta blockers Patient may be discharged for outpatient follow-up I am dictating on behalf of Dr Sukhjinder Abernathy's history/physical and assessment/plan. Past Medical History Past Medical History: Hyperlipidemia Additional Past Medical History / Comment(s): diverticulosis, small hiatal hernia, benign liver cyst. History of Any Multi-Drug Resistant Organisms: None Reported Past Surgical History: Appendectomy, Hysterectomy Additional Past Surgical History / Comment(s): EGD, colonoscopy, R shoulder arthroscopy Past Anesthesia/Blood Transfusion Reactions: No Reported Reaction Past Psychological History: No Psychological Hx Reported Additional Psychological History / Comment(s): Patient lives alone Smoking Status: Never smoker Past Alcohol Use History: None Reported Past Drug Use History: None Reported - Past Family History Father History Unknown: Yes Mother Additional Family Medical History / Comment(s): Mother had osteoporosis. She at the age of 69yrs, pt does not know cause of . Medications and Allergies Home Medications Medication Instructions Recorded Confirmed Type Pravastatin Sodium [Pravachol] 20 mg PO HS 08/14/17 11/16/23 History lisinopriL [Zestril] 10 mg PO HS 08/14/17 11/16/23 History L.acidoph,Paracasei, B.lactis 1 cap PO DAILY 02/20/19 11/16/23 History [Probiotic] Multivitamins, Thera [Multivitamin 1 tab PO HS 02/20/19 11/16/23 History (formulary)] traZODone HCL 100 mg PO HS PRN 03/01/21 11/16/23 History Levothyroxine Sodium [Synthroid] 50 mcg PO DAILY 11/16/23 11/16/23 History Ondansetron [Zofran] 4 mg PO Q6H PRN 11/16/23 11/16/23 History Acetaminophen Tab [Tylenol] 650 mg PO Q6HR PRN tab 11/17/23 Rx Apixaban [Eliquis] 2.5 mg PO BID #60 tab 11/17/23 Rx Cefdinir [Omnicef] 300 mg PO Q12HR #10 capsule 11/17/23 Rx Metoprolol Tartrate [Lopressor] 25 mg PO BID #60 tab 11/17/23 Rx Allergies Allergy/AdvReac Type Severity Reaction Status Date / Time Penicillins Allergy Swelling Verified 11/16/23 13:08 Physical Exam Vitals: Vital Signs Temp Pulse Pulse Resp BP BP Pulse Ox 11/17/23 12:00 77 16 156/81 96 11/17/23 08:00 97.8 F 92 18 115/68 97 11/17/23 03:17 97.9 F 75 16 105/64 98 11/17/23 00:00 97.8 F 75 16 100/61 96 11/16/23 20:00 97.9 F 90 16 113/73 97 11/16/23 17:40 97.8 F 70 16 106/73 97 11/16/23 16:55 78 18 124/70 98 11/16/23 15:00 81 18 134/76 98 Intake and Output 11/16/23 11/17/23 11/17/23 22:59 06:59 14:59 Intake Total 43.667 379.676 Balance 43.667 379.676 Intake: IV 20 Invasive Line 1 20 Intake, IV Titration 23.667 139.676 Amount Diltiazem 125 mg In 23.667 Sodium Chloride 0.9% 100 ml @ 5 MG/HR 5 mls/hr IV .Q24H [facility] Rx#:[id number] Heparin Sod,Pork in 0.45% 139.676 NaCl 25,000 unit In 0.45 % NaCl 1 250ml.bag @ 12 UNITS/KG/HR 6.532 mls/hr IV .Q24H [facility] Rx#: [id number] Oral 240 Other: Voiding Method Toilet # Voids 1 # Bowel Movements 1 Weight 54.431 kg 53.3 kg Results 11/17/23 07:11 11/17/23 07:11 Cardiac Enzymes 11/16/23 Range/Units 17:53 Troponin I <0.012 (0.000-0.034) ng/mL Coagulation 11/16/23 11/17/23 Range/Units 17:53 07:11 PT 11.1 (10.0-12.5) sec APTT 71.3 H 78.4 H (22.0-30.0) sec CBC 11/16/23 11/17/23 Range/Units 17:53 07:11 WBC 8.8 6.2 (3.8-10.6) k/uL RBC 4.46 4.38 (3.80-5.40) m/uL Hgb 13.6 13.4 (11.4-16.0) gm/dL Hct 41.1 40.1 (34.0-46.0) % Plt Count 248 258 (150-450) k/uL Comprehensive Metabolic Panel 11/16/23 11/17/23 Range/Units 17:53 07:11 Sodium 130 L 132 L (137-145) mmol/L Potassium 3.7 3.9 (3.5-5.1) mmol/L Chloride 104 106 (98-107) mmol/L Carbon Dioxide 13 L 18 L (22-30) mmol/L BUN 7 10 (7-17) mg/dL Creatinine 0.61 0.81 (0.52-1.04) mg/dL Glucose 123 H 82 (74-99) mg/dL Calcium 8.8 8.7 (8.4-10.2) mg/dL Intake and Output 11/16/23 11/17/23 11/17/23 22:59 06:59 14:59 Intake Total 43.667 379.676 Balance 43.667 379.676 Intake: IV 20 Invasive Line 1 20 Intake, IV Titration 23.667 139.676 Amount Diltiazem 125 mg In 23.667 Sodium Chloride 0.9% 100 ml @ 5 MG/HR 5 mls/hr IV .Q24H [facility] Rx#:[id number] Heparin Sod,Pork in 0.45% 139.676 NaCl 25,000 unit In 0.45 % NaCl 1 250ml.bag @ 12 UNITS/KG/HR 6.532 mls/hr IV .Q24H [facility] Rx#: [id number] Oral 240 Other: Voiding Method Toilet # Voids 1 # Bowel Movements 1 Weight 54.431 kg 53.3 kg 11/17/23 07:11 11/17/23 07:11
== END 2023-11-17 13:11 | disposition home or self-care (01) | DRG 309 ==
LOC: EC 08:40 → 3SCARD 12:37
PROVIDERS: ADMIT Student in an Organized Health Care Education/Training Program; ATTEND Student in an Organized Health Care Education/Training Program
DX: I48.91 Unspecified atrial fibrillation (principal); E87.1 Hypo-osmolality and hyponatremia; K56.7 Ileus, unspecified; K52.9 Noninfective gastroenteritis and colitis, unspecified; E03.9 Hypothyroidism, unspecified; K57.90 Diverticulosis of intestine, part unspecified, without perforation or abscess without bleeding; K44.9 Diaphragmatic hernia without obstruction or gangrene; E78.5 Hyperlipidemia, unspecified; I44.0 Atrioventricular block, first degree; I10 Essential (primary) hypertension; N30.91 Cystitis, unspecified with hematuria; Z79.01 Long term (current) use of anticoagulants; Z79.890 Hormone replacement therapy; Z79.899 Other long term (current) drug therapy; Z71.89 Other specified counseling; Z60.2 Problems related to living alone; Z88.0 Allergy status to penicillin
CPT/HCPCS: 36415; 74018; 76770; 80048; 80053; 81001; 83605; 83690; 83735; 84443; 84484; 85025; 85027; 85610; 85730; 87040; 87086; 93005; 93306; 96361; 96365; 96366; 96367; 96368; 96375; 99285

== ENCOUNTER 2023-12-08 14:04 | Emergency (ER) | payer MEDICARE ==
[2023-12-08] MEDS ORDERED: ONDANSETRON 4 MG/2 ML VIAL ONE (14:52)
[2023-12-08] MEDS ORDERED: FAMOTIDINE 20 MG/2 ML VIAL ONE (14:52)
[2023-12-08] MEDS ORDERED: MAG HYDROX/AL HYDROX/SIMETH 30 ML CUP ONE (14:57)
[2023-12-08] MEDS ORDERED: HYOSCYAMINE ELIXIR 250 MCG/10 ML BTL ONE (14:57)
[2023-12-08] MEDS ORDERED: LIDOCAINE VISCOUS 2% 15 ML CUP ONE (14:58)
[2023-12-08] MEDS ORDERED: KETOROLAC 15 MG/ML 1 ML VIAL ONE (16:52)
[2023-12-08] MEDS ORDERED: SODIUM CHLORIDE 0.9% 1,000 ML BAG ONE ×2 (17:30)
--- NOTE | 2024-01-14 11:48 | XR ---
Site ID [facility] Patient Allison Santoro ID [id number] EXAMINATION TYPE: XR chest 2V DATE OF EXAM: 12/08/2023 4:10 PM CLINICAL INDICATION: Chest Pain COMPARISON: THIS EXAM WAS READ DURING PACS DOWNTIME, NO PRIORS AVAILABLE. TECHNIQUE: XR chest 2V Frontal view of the chest. FINDINGS: Lungs/Pleura: There is no evidence of pleural effusion, focal consolidation, or pneumothorax. Pulmonary vascularity: Unremarkable. Heart/mediastinum: Cardiomediastinal silhouette is unremarkable. Atherosclerotic calcifications are seen in the aorta. Musculoskeletal: No acute osseous pathology. Other findings: None IMPRESSION: No acute cardiopulmonary disease/process.
== END 2023-12-08 20:37 | disposition home or self-care (01) ==
LOC: EC 14:04
DX: E86.0 Dehydration (principal)
CPT/HCPCS: 71046; 93005; 96374; 96375; 99284

== ENCOUNTER → 2023-12-28 | Outpatient (CLI) | payer MEDICARE ==
--- NOTE | 2023-12-28 15:54 | NM ---
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 Immediate images post injection. FINDINGS: There is satisfactory initial accumulation of tracer by the liver. The gallbladder is visualized wit hin 18 minutes. The small bowel activity is noted within 42 minutes. At one hour 8 ounces of oral e nsure plus is given to mimic CCK and gallbladder ejection fraction is calculated at 96 %, elevated ab ove the expected range IMPRESSION: 1. No scintigraphic evidence for acute/chronic cholecystitis or biliary dyskinesia. 2. Markedly elevated gallbladder ejection fraction of 96% may be seen with gallbladder hyperkinesis.
== END | disposition home or self-care (01) ==
LOC: RADNMMAIN 06:34
PROVIDERS: ATTEND Family Medicine
DX: K21.9 Gastro-esophageal reflux disease without esophagitis (principal); R11.2 Nausea with vomiting, unspecified
CPT/HCPCS: 78226; A9537

== ENCOUNTER → 2024-02-08 | Outpatient (CLI) | payer MEDICARE ==
--- NOTE | 2024-02-08 17:00 | XR ---
EXAMINATION TYPE: XR chest 2V DATE OF EXAM: 02/08/2024 COMPARISON: 12/08/2023 HISTORY: Shortness of breath TECHNIQUE: Frontal and lateral views of the chest are obtained. FINDINGS: Scattered senescent parenchymal changes noted. Hyperinflation compatible with COPD. No evidence for infiltrate. No evidence for atelectasis. Heart size is stable. Mediastinal structures are stable and grossly unremarkable. No evidence for hilar prominence. Degenerative changes dorsal spine. IMPRESSION: 1. No evidence for acute pulmonary disease. [facility], , 02/08/2024 4:57 PM
== END | disposition home or self-care (01) ==
LOC: RADXRYALE 16:07
PROVIDERS: ATTEND Family Medicine
DX: R06.02 Shortness of breath (principal)
CPT/HCPCS: 71046

== ENCOUNTER 2024-02-13 17:41 | Observation (INO) | payer MEDICARE ==
--- NOTE | 2024-02-13 17:55 | ED ---
SOB HPI - General Chief Complaint: Shortness of Breath Stated Complaint: SOB Time Seen by Provider: 02/13/24 17:50 Source: patient, EMS, RN notes reviewed, old records reviewed Mode of arrival: EMS Limitations: no limitations - History of Present Illness Initial Comments: This is a 88-year-old female to the ER for evaluation today. Patient presents today for evaluation regards to shortness of breath with anxiety sent in from primary care for evaluation MD Complaint: shortness of breath, cough, "asthma attack", anxiety -: hour(s) Severity: severe Severity scale (1-10): 7 Quality: aching, throbbing Improves With: nothing Worsens With: nothing Context: recent URI, recent illness Associated Symptoms: denies other symptoms - Related Data Home Medications Medication Instructions Recorded Confirmed Pravastatin Sodium [Pravachol] 20 mg PO HS 08/14/17 02/14/24 lisinopriL [Zestril] 10 mg PO HS 08/14/17 02/14/24 L.acidoph,Paracasei, B.lactis 1 cap PO DAILY 02/20/19 02/14/24 [Probiotic] Multivitamins, Thera [Multivitamin 1 tab PO HS 02/20/19 02/14/24 (formulary)] Ondansetron [Zofran] 4 - 8 mg PO Q8H PRN 11/16/23 02/14/24 ALPRAZolam [Xanax] 0.25 mg PO BID PRN 02/14/24 02/14/24 Magnesium 250 mg PO DAILY 02/14/24 02/14/24 Metoprolol Tartrate [Lopressor] 50 mg PO BID 02/14/24 02/14/24 Omeprazole [PriLOSEC] 40 mg PO DAILY 02/14/24 02/14/24 Triamcinolone 0.1% Cream [Kenalog 1 applicatio TOPICAL BID PRN 02/14/24 02/14/24 0.1% Cream] Previous Rx's Medication Instructions Recorded Acetaminophen Tab [Tylenol] 650 mg PO Q6HR PRN tab 11/17/23 Apixaban [Eliquis] 2.5 mg PO BID #60 tab 11/17/23 Levothyroxine Sodium [Synthroid] 50 mcg PO DAILY@0600 #30 tab 02/17/24 Allergies Allergy/AdvReac Type Severity Reaction Status Date / Time Penicillins Allergy Swelling Verified 02/14/24 09:29 Review of Systems ROS Statement: Those systems with pertinent positive or pertinent negative responses have been documented in the HPI. ROS Other: All systems not noted in ROS Statement are negative. Past Medical History Past Medical History: Atrial Fibrillation, Hyperlipidemia Additional Past Medical History / Comment(s): diverticulosis, small hiatal hernia, benign liver cyst. History of Any Multi-Drug Resistant Organisms: None Reported Past Surgical History: Appendectomy, Hysterectomy Additional Past Surgical History / Comment(s): EGD, colonoscopy, R shoulder arthroscopy Past Anesthesia/Blood Transfusion Reactions: No Reported Reaction Past Psychological History: No Psychological Hx Reported Smoking Status: Never smoker Past Alcohol Use History: None Reported Past Drug Use History: None Reported - Past Family History Father History Unknown: Yes Mother Additional Family Medical History / Comment(s): Mother had osteoporosis. She at the age of 69yrs, pt does not know cause of . General Exam Limitations: no limitations General appearance: alert, in no apparent distress Head exam: Present: atraumatic, normocephalic, normal inspection Eye exam: Present: normal appearance, PERRL, EOMI. Absent: scleral icterus, conjunctival injection, periorbital swelling ENT exam: Present: normal exam, mucous membranes moist Neck exam: Present: normal inspection. Absent: tenderness, meningismus, lymphadenopathy Respiratory exam: Present: normal lung sounds bilaterally. Absent: respiratory distress, wheezes, rales, rhonchi, stridor Cardiovascular Exam: Present: regular rate, normal rhythm, normal heart sounds. Absent: systolic murmur, diastolic murmur, rubs, gallop, clicks GI/Abdominal exam: Present: soft, normal bowel sounds. Absent: distended, tenderness, guarding, rebound, rigid Extremities exam: Present: normal inspection, full ROM, normal capillary refill. Absent: tenderness, pedal edema, joint swelling, calf tenderness Back exam: Present: normal inspection Neurological exam: Present: alert, oriented X3, CN II-XII intact Psychiatric exam: Present: normal affect, normal mood Skin exam: Present: warm, dry, intact, normal color. Absent: rash Course Vital Signs 02/13/24 02/13/24 02/13/24 17:43 20:42 20:52 Temperature 97.7 F Pulse Rate 86 82 87 Respiratory 20 Rate Blood Pressure 136/77 O2 Sat by Pulse 100 Oximetry 02/14/24 02/14/24 02/14/24 00:06 06:48 07:50 Temperature Pulse Rate 83 70 66 Respiratory 20 18 18 Rate Blood Pressure 146/78 134/71 140/74 O2 Sat by Pulse 100 97 98 Oximetry 02/14/24 02/14/24 12:00 17:15 Temperature Pulse Rate 75 80 Respiratory 16 18 Rate Blood Pressure 146/75 135/80 O2 Sat by Pulse 97 98 Oximetry - Reevaluation(s) Reevaluation #1: 02/13/24 18:44 Medical records reviewed Reevaluation #2: 02/13/24 20:49 Symptoms unchanged still short of breath still dyspnea still cannot take a deep breath Reevaluation #3: 02/13/24 20:49 Patient informed of results and questions answered Reevaluation #4: Was pt. sent in by a medical professional or institution (, PA, RESIDENT MANAGER, urgent care, hospital, or care home...) When possible be specific @ -no Did you speak to anyone other than the patient for history (EMS, parent, family, police, friend...)? What history was obtained from this source @ -no Did you review nursing and triage notes (agree or disagree)? Why? @ -agree Are old charts reviewed (outside hosp., previous admission, EMS record, old EKG, old radiological studies, urgent care reports/EKG's, care home records)? Report findings @ -yes Differential Diagnosis (chest pain, altered mental status, abdominal pain women, abdominal pain men, vaginal bleeding, weakness, fever, dyspnea, syncope, headache, dizziness, GI bleed, back pain, seizure, CVA, palpatations, mental health, musculoskeletal)? @ -prior EKG interpreted by me (3pts min.). @ -yes X-rays interpreted by me (1pt min.). @ -yes negative for acute disease CT interpreted by me (1pt min.). @ -yes negative for acute disease U/S interpreted by me (1pt. min.). @ -no What testing was considered but not performed or refused? (CT, X-rays, U/S, labs)? Why? @ -none What meds were considered but not given or refused? Why? @ -none Did you discuss the management of the patient with other professionals (narciso sanchez i.e. , PA, RESIDENT MANAGER, lab, RT, psych nurse, social security benefits interviewer, sports photographer, teacher, business practices officer, embedded case manager)? Give summary @ -no Was smoking cessation discussed for >3mins.? @ -no Was critical care preformed (if so, how long)? @ -no Were there social determinants of health that impacted care today? How? (Homelessness, low income, unemployed, alcoholism, drug addiction, transportation, low edu. Level, literacy, decrease access to med. care, snf, rehab)? @ -none Was there de-escalation of care discussed even if they declined (Discuss DNR or withdrawal of care, Hospice)? DNR status @ -no What co-morbidities impacted this encounter? (DM, HTN, Smoking, COPD, CAD, Cancer, CVA, ARF, Chemo, Hep., AIDS, mental health diagnosis, sleep apnea, morbid obesity)? @ -none Was patient admitted / discharged? Hospital course, mention meds given and route, prescriptions, significant lab abnormalities, going to OR and other pertinent info. @ - 88 female who will be admitted for dyspnea subjective dyspnea Undiagnosed new problem with uncertain prognosis? @ -no Drug Therapy requiring intensive monitoring for toxicity (Heparin, Nitro, Insulin, Cardizem)? @ -no Were any procedures done? @ -no Diagnosis/symptom? @ -Chest pain and anxiety Acute, or Chronic, or Acute on Chronic? @ -Acute Uncomplicated (without systemic symptoms) or Complicated (systemic symptoms)? @ -Complicated Side effects of treatment? @ -no Exacerbation, Progression, or Severe Exacerbation? @ -exacerbation Poses a threat to life or bodily function? How? (Chest pain, USA, IA, pneumonia, PE, COPD, DKA, ARF, appy, cholecystitis, CVA, Diverticulitis, Homicidal, Suicidal, threat to staff... and all critical care pts) @ -yes extremes of age Reevaluation #5: Differential Dizziness: Benign paroxysmal positional Vertigo, Meniere's disease, otitis media, acoustic neuroma, vertebrobasilar insufficiency, cerebellar stroke, encephalitis, hypovolemic, arrhythmia, coronary artery syndrome, anemia, this is not meant to be an all-inclusive list - Consultations Consultation #1: Sound who agrees to admit this patient Medical Decision Making - Medical Decision Making 88 female who will be admitted for dyspnea subjective dyspnea - Lab Data Result diagrams: 02/14/24 04:45 02/17/24 03:50 Lab Results 02/13/24 02/13/24 02/13/24 Range/Units 18:15 18:15 18:15 WBC 4.6 (3.8-10.6) k/uL RBC 4.67 (3.80-5.40) m/uL Hgb 14.9 (11.4-16.0) gm/dL Hct 41.9 (34.0-46.0) % MCV 89.6 (80.0-100.0) fL MCH 31.9 (25.0-35.0) pg MCHC 35.6 (31.0-37.0) g/dL RDW 13.2 (11.5-15.5) % Plt Count 360 (150-450) k/uL MPV 8.0 Neutrophils % 59 % Lymphocytes % 23 % Monocytes % 10 % Eosinophils % 4 % Basophils % 1 % Neutrophils # 2.7 (1.3-7.7) k/uL Lymphocytes # 1.1 (1.0-4.8) k/uL Monocytes # 0.5 (0-1.0) k/uL Eosinophils # 0.2 (0-0.7) k/uL Basophils # 0.0 (0-0.2) k/uL PT 11.1 (10.0-12.5) sec INR 1.0 (<1.2) APTT 22.4 (22.0-30.0) sec Sodium 128 L (137-145) mmol/L Potassium 4.7 (3.5-5.1) mmol/L Chloride 99 (98-107) mmol/L Carbon Dioxide 16 L (22-30) mmol/L Anion Gap 13 mmol/L BUN 12 (7-17) mg/dL Creatinine 0.71 (0.52-1.04) mg/dL Est GFR (CKD-EPI)AfAm 88 (>60 ml/min/1.73 sqM) Est GFR (CKD-EPI)NonAf 77 (>60 ml/min/1.73 sqM) Glucose 92 (74-99) mg/dL Calcium 10.5 H (8.4-10.2) mg/dL Magnesium 2.0 (1.6-2.3) mg/dL Total Bilirubin 1.2 (0.2-1.3) mg/dL AST 43 H (14-36) U/L ALT 21 (4-34) U/L Alkaline Phosphatase 55 (38-126) U/L Troponin I (0.000-0.034) ng/mL NT-Pro-B Natriuret Pep 165 pg/mL Total Protein 7.5 (6.3-8.2) g/dL Albumin 5.0 (3.5-5.0) g/dL 02/13/24 Range/Units 18:15 WBC (3.8-10.6) k/uL RBC (3.80-5.40) m/uL Hgb (11.4-16.0) gm/dL Hct (34.0-46.0) % MCV (80.0-100.0) fL MCH (25.0-35.0) pg MCHC (31.0-37.0) g/dL RDW (11.5-15.5) % Plt Count (150-450) k/uL MPV Neutrophils % % Lymphocytes % % Monocytes % % Eosinophils % % Basophils % % Neutrophils # (1.3-7.7) k/uL Lymphocytes # (1.0-4.8) k/uL Monocytes # (0-1.0) k/uL Eosinophils # (0-0.7) k/uL Basophils # (0-0.2) k/uL PT (10.0-12.5) sec INR (<1.2) APTT (22.0-30.0) sec Sodium (137-145) mmol/L Potassium (3.5-5.1) mmol/L Chloride (98-107) mmol/L Carbon Dioxide (22-30) mmol/L Anion Gap mmol/L BUN (7-17) mg/dL Creatinine (0.52-1.04) mg/dL Est GFR (CKD-EPI)AfAm (>60 ml/min/1.73 sqM) Est GFR (CKD-EPI)NonAf (>60 ml/min/1.73 sqM) Glucose (74-99) mg/dL Calcium (8.4-10.2) mg/dL Magnesium (1.6-2.3) mg/dL Total Bilirubin (0.2-1.3) mg/dL AST (14-36) U/L ALT (4-34) U/L Alkaline Phosphatase (38-126) U/L Troponin I 0.014 (0.000-0.034) ng/mL NT-Pro-B Natriuret Pep pg/mL Total Protein (6.3-8.2) g/dL Albumin (3.5-5.0) g/dL - EKG Data -: EKG Interpreted by Me (EKG is sinus 79 WA 232 QRS 82 QTc 444) - Radiology Data Radiology results: report reviewed (CT soft tissue , CT chest for acute disease, chest x-ray is negative for acute disease), image reviewed Disposition Clinical Impression: Nausea & vomiting, Dyspnea, Anxiety Disposition: ADMITTED IP TO THIS HOSP Condition: Good Time of Disposition: 20:45
[2024-02-13] MEDS: LORazepam 2 MG/ML INJ IV STA (18:32)
[2024-02-13] MEDS: SODIUM CHLORIDE 0.9% 500 ML 500 ML IV STA (18:37)
[2024-02-13 18:46] LABS: ALT 21 U/L (4-34); African American GFR (CKD) 88 (>60 ml/min/1.73 sqM); Anion Gap 13 mmol/L; Blood Urea Nitrogen 12 mg/dL (7-17); Calcium 10.5 mg/dL (8.4-10.2); Carbon Dioxide 16 mmol/L (22-30); Chloride 99 mmol/L (98-107); Glucose 92 mg/dL (74-99); Non-African American GFR(CKD) 77 (>60 ml/min/1.73 sqM); Sodium 128 mmol/L (137-145); Total Bilirubin 1.2 mg/dL (0.2-1.3); Total Protein 7.5 g/dL (6.3-8.2)
[2024-02-13 18:50] LABS: Basophils % (A) 1 %; Eosinophils # (A) 0.2 k/uL (0-0.7); Eosinophils % (A) 4 %; HCT 41.9 % (34.0-46.0); HGB 14.9 gm/dL (11.4-16.0); Lymphocytes # (A) 1.1 k/uL (1.0-4.8); Lymphocytes % (A) 23 %; MCH 31.9 pg (25.0-35.0); MCHC 35.6 g/dL (31.0-37.0); MCV 89.6 fL (80.0-100.0); Monocytes # (A) 0.5 k/uL (0-1.0); Monocytes % (A) 10 %; NT-Pro-B-Type Natriuretic Pept 165 pg/mL; Neutrophils # (A) 2.7 k/uL (1.3-7.7); Neutrophils % (A) 59 %; Partial Thromboplastin Time 22.4 sec (22.0-30.0); Platelet Count 360 k/uL (150-450); Prothrombin Time 11.1 sec (10.0-12.5); RBC 4.67 m/uL (3.80-5.40); RDW 13.2 % (11.5-15.5); WBC 4.6 k/uL (3.8-10.6)
[2024-02-13 19:01] LABS: AST 43 U/L (14-36); Alkaline Phosphatase 55 U/L (38-126); Potassium 4.7 mmol/L (3.5-5.1)
--- NOTE | 2024-02-13 19:11 | XR ---
EXAMINATION TYPE: XR chest 1V portable DATE OF EXAM: 02/13/2024 6:52 PM CLINICAL INDICATION: Female, 88 years old with history of sob; PHH COMPARISON: Chest radiographs from 06/10/2023 TECHNIQUE: XR chest 1V portable Frontal view of the chest. FINDINGS: Lungs/Pleura: There is no evidence of pleural effusion, focal consolidation, or pneumothorax. Pulmonary vascularity: Unremarkable. Heart/mediastinum: Cardiomediastinal silhouette is unremarkable. Musculoskeletal: No acute osseous pathology. IMPRESSION: No acute cardiopulmonary disease/process. [facility], , 02/13/2024 7:09 PM
[2024-02-13] MEDS ORDERED: RX INFO: IV CONTRAST WAS GIVEN 1 EACH MISC MISCELLANE PRN (19:32)
[2024-02-13] MEDS: IPRATROPIUM-ALBUTEROL 3 ML NEB INHALATION STA (20:42)
[2024-02-13] MEDS ORDERED: NALOXONE 0.4 MG/ML 1 ML VIAL IV PRN (20:45)
--- NOTE | 2024-02-13 21:19 | CT ---
EXAMINATION TYPE: CT chest w con CT DLP: 342.5 mGycm, Automated exposure control for dose reduction was used. DATE OF EXAM: 02/13/2024 8:44 PM COMPARISON: Chest radiograph from same day. CLINICAL INDICATION: Female, 88 years old with history of sob; PHH, SOB. TECHNIQUE: Multiple axial images were obtained through the chest. Sagittal and coronal reformats were created for review. MIP was performed on a separate workstation. Contrast used:50 ml mL of Isovue 300 with IV Contrast (None if empty) Oral contrast used: (None if empty) FINDINGS: LUNGS/ PLEURA: No focal consolidation, pneumothorax or pleural effusion. There may be mild centrilobu lar emphysema changes. AIRWAY: Patent and unremarkable. HEART: Size within normal limits. MEDIASTINUM: No gross evidence of adenopathy. VASCULATURE: No aortic aneurysm. MUSCULOSKELETAL: No acute osseous abnormalities SOFT TISSUES/LYMPH NODES: Unremarkable. LOWER NECK: No significant findings. UPPER ABDOMEN: No significant findings. IMPRESSION: No acute process. No evidence for central pulmonary embolus. [facility], , 02/13/2024 9:16 PM
--- NOTE | 2024-02-13 21:21 | CT ---
EXAMINATION TYPE: CT soft tissue neck w con CT DLP: 342.5 mGycm, Automated exposure control for dose reduction was used. DATE OF EXAM: 02/13/2024 8:44 PM COMPARISON: None. CLINICAL INDICATION: Female, 88 years old with history of sob; PHH, SOB. TECHNIQUE: Standard enhanced CT of the neck. Axial sections with coronal and sagittal reformats were obtained. Contrast used:50 ml mL of Isovue 300 with IV Contrast, (None if empty) Oral contrast used: (None if empty) FINDINGS: Brain: Visualized portions are grossly unremarkable. Orbits: Bilaterally aphakia. Sinuses: Grossly unremarkable. Spaces of the neck: Clear and symmetric. The airways patent. Musculoskeletal: No acute osseous pathology. Lymph nodes: Multiple nonenlarged lymph nodes are seen along both anterior chains of the neck. Vascular structures: Atherosclerosis of the carotid bifurcations with at least 50% stenosis of the le ft bifurcation. Less than 25% stenosis of the right carotid bifurcation. Thoracic Inlet/airway: Airway is patent. The lung apices are clear. Soft tissues/Thyroid: Thyroid and remainder of the soft tissues are unremarkable. Other: none. IMPRESSION 1. Airways is patent. No lymphadenopathy or abnormality visualized. 2. Atherosclerosis of the carotid bifurcations that 50% stenosis on the left and 25% stenosis on the right. [facility], , 02/13/2024 9:18 PM
--- NOTE | 2024-02-13 22:14 | P.HPIM ---
History of Present Illness H&P Date: 02/13/24 Chief Complaint: shortness of breath Patient is a 88-year-old female with A-fib (on Eliquis. Managed by Dr. Abernathy), first-degree AV block, panic attacks, hyperlipidemia, asthma, hypothyroidism and hyponatremia who came in for shortness of breath. She has been seen by her primary care today and began to have worsening shortness of breath which led her to be brought in to the ED via EMS. Patient reported she has been short of breath for 2 weeks and it has been constant even at rest and that she requires 2 pillows to sleep. She noted associated palpitations, nonproductive cough, chest tightness, diaphoresis, chills, and dizziness. She denied chest pain, leg pain, abdominal pain, tremors, loss of consciousness, focal weakness, facial asymmetry, changes in vision, fever, or recent travel. She denied any stressors at home, daily caffeine intake, or tobacco use. Review of systems: Pertinent positives and negatives as discussed in HPI, a complete review of systems was performed and all other systems are negative. Physical examination: Vital signs reviewed General: non toxic, no distress, appears at stated age, Derm: no unusual rashes/lesions, warm Head: atraumatic, normocephalic, symmetric Eyes: EOMI, anicteric sclera, pupils equal round reactive to light ENT: Nose and ears atraumatic Neck: No cervical lymphadenopathy, trachea midline, supple Mouth: no lip lesion, mucus membranes moist Cardiovascular: S1S2 reg, no murmur Lungs: CTA bilateral, no rhonchi, no rales, no accessory muscle use Abdominal: soft, nondistended, nontender to palpation, no guarding Ext: muscle strength 5 out of 5 in all 4 extremities grossly, no gross muscle atrophy, no contractures, positive dorsalis pedis pulse bilateral, no edema Neuro: CN II-XI grossly intact, no gross focal neuro deficits Psych: Alert and oriented x 3, appropriate affect and mood Assessment/Plan: 80-year-old female who came in for shortness of breath. She has a history of A- fib, first-degree AVB and panic attacks. Imaging and labs are negative for ME, VTE, or bleeds. ED documentation reviewed. Agree to admit patient for evaluation of shortness of breath and anxiety. Estimated length of stay greater than 2 midnights for evaluation #. Dyspnea rule out cardiac and respiratory (differentials A-fib, panic attacks, medication) -Cardiac monitoring -Supplemental oxygen as needed -Ativan 0.5 mg IV every 6 hours as needed for anxiety -Consult cardiology #. suspecting hypovolemic Hyponatremia from tea toast diet Patient has history of hyponatremia. Sodium 128. Patient stable at current normal saline 75 cc per hour trial , if Na does not improve , then consider euvolemic hyponatremia and ruleout SIADH, hypothyroid , adrenal insufficiency etc -Check sodium every 4 hours -BMP at a.m. BUN 12 cr 0.7 unremarkable #. Hypercalcemia Calcium at 10.5. Patient currently stable -BMP at a.m.. If still elevated, consider workup Chronic conditions: #. Panic attacks: Trazodone 50 mg p.o. at bedtime #. Hyperlipidemia: Pravastatin 20 mg p.o. at bedtime #. A-fib, controlled: Eliquis 2.5 mg p.o. twice daily #. Hypothyroidism: Synthroid 50 mcg p.o. OD -Resume home medications once reconciled DVT prophylaxis: Eliquis CODE STATUS: Full Discussed with: Patient and patient's grandson Anticipated discharge place: Home Past Medical History Past Medical History: Atrial Fibrillation, Hyperlipidemia Additional Past Medical History / Comment(s): diverticulosis, small hiatal hernia, benign liver cyst. History of Any Multi-Drug Resistant Organisms: None Reported Past Surgical History: Appendectomy, Hysterectomy Additional Past Surgical History / Comment(s): EGD, colonoscopy, R shoulder arthroscopy Past Anesthesia/Blood Transfusion Reactions: No Reported Reaction Past Psychological History: No Psychological Hx Reported Smoking Status: Never smoker Past Alcohol Use History: None Reported Past Drug Use History: None Reported - Past Family History Father History Unknown: Yes Mother Additional Family Medical History / Comment(s): Mother had osteoporosis. She at the age of 69yrs, pt does not know cause of . Medications and Allergies Home Medications Medication Instructions Recorded Confirmed Type Pravastatin Sodium [Pravachol] 20 mg PO HS 08/14/17 11/16/23 History lisinopriL [Zestril] 10 mg PO HS 08/14/17 11/16/23 History L.acidoph,Paracasei, B.lactis 1 cap PO DAILY 02/20/19 11/16/23 History [Probiotic] Multivitamins, Thera [Multivitamin 1 tab PO HS 02/20/19 11/16/23 History (formulary)] traZODone HCL 100 mg PO HS PRN 03/01/21 11/16/23 History Levothyroxine Sodium [Synthroid] 50 mcg PO DAILY 11/16/23 11/16/23 History Ondansetron [Zofran] 4 mg PO Q6H PRN 11/16/23 11/16/23 History Acetaminophen Tab [Tylenol] 650 mg PO Q6HR PRN tab 11/17/23 Rx Apixaban [Eliquis] 2.5 mg PO BID #60 tab 11/17/23 Rx Cefdinir [Omnicef] 300 mg PO Q12HR #10 capsule 11/17/23 Rx Metoprolol Tartrate [Lopressor] 25 mg PO BID #60 tab 11/17/23 Rx Allergies Allergy/AdvReac Type Severity Reaction Status Date / Time Penicillins Allergy Swelling Verified 02/13/24 17:54 Physical Exam Vitals: Vital Signs Temp Pulse Resp BP Pulse Ox 02/13/24 20:52 87 02/13/24 20:42 82 02/13/24 17:43 97.7 F 86 20 136/77 100 Intake and Output 02/13/24 02/13/24 02/13/24 06:59 14:59 22:59 Other: Weight 46.72 kg Results CBC & Chem 7: 02/13/24 18:15 02/13/24 18:15 Labs: Abnormal Lab Results - Last 24 Hours (Table) 02/13/24 Range/Units 18:15 Sodium 128 L (137-145) mmol/L Carbon Dioxide 16 L (22-30) mmol/L Calcium 10.5 H (8.4-10.2) mg/dL AST 43 H (14-36) U/L Assessment and Plan Assessment: I have seen and evaluated the patient today. I Discussed the case with the resident and agree with the resident's findings I edited the assessment and plan as necessary as documented in the resident's note.
[2024-02-13] MEDS: SODIUM CHLORIDE 0.9% 1,000 ML IV SCH (22:32)
[2024-02-13] MEDS: SODIUM CHLORIDE 0.9% 1,000 ML IV STA (22:32)
[2024-02-14] MEDS: METOPROLOL TARTRATE 25 MG TAB PO SCH (01:12)
[2024-02-14] MEDS: MELATONIN 5 MG TABLET PO PRN (02:21)
[2024-02-14 04:55] LABS: African American GFR (CKD) >90 (>60 ml/min/1.73 sqM); Anion Gap 10 mmol/L; Blood Urea Nitrogen 8 mg/dL (7-17); Calcium 9.3 mg/dL (8.4-10.2); Carbon Dioxide 14 mmol/L (22-30); Chloride 110 mmol/L (98-107); Glucose 92 mg/dL (74-99); Non-African American GFR(CKD) 82 (>60 ml/min/1.73 sqM); Potassium 4.1 mmol/L (3.5-5.1); Sodium 134 mmol/L (137-145)
--- NOTE | 2024-02-14 06:01 | P.CNPUL ---
History of Present Illness Consult date: 02/14/24 Requesting physician: Fermin Moya Reason for consult: dyspnea Chief complaint: Shortness of breath History of present illness: Patient is an 88-year-old female with past medical history significant for thyroid disorder, GERD, hyperlipidemia, hypertension, A-fib, anxiety. Presents to the emergency department yesterday evening, after being sent in by her PCP Dr. Martinez. Complaining chiefly of shortness of breath over the last 2 weeks. She states that it feels like she cannot take a deep breath. No associated pain. This makes her anxious, and as needed Ativan seems to help. This has interfered with her sleep at home. Associated dry nonproductive cough over the same timeframe, intermittent throughout the day. She denies sick contacts. Denies fevers, sputum production, rhinorrhea, sore throat, sinus pressure/pain, etc. Denies known pre-existing lung disease such as COPD or asthma. Lifelong non-smoker. Does take lisinopril for high blood pressure. Also, has GERD, curr ently takes omeprazole. Appetite has been reduced due to reflux and indigestion. Reportedly, scheduled for upper and lower scope with Dr. Cohen in February. She denies any chest pain. Occasional heart palpitations without lightheadedness or syncope. Denies increased lower extremity edema. She does report increased shortness of breath when lying flat in bed, so she sleeps with 2 pillows at bedtime. She does have history of paroxysmal atrial fibrillation. She is anticoagulated on Eliquis. EKG: Normal sinus rhythm, rate 79 bpm, no acute ischemic changes. Recent echocardiogram performed October, estimating a preserved left ventricular ejection fraction of 55 to 60% without significant valvular abnormalities. Chest x-ray taken on arrival does not demonstrate any acute cardiopulmonary process. This was followed by a chest CT with contrast which did not show any obvious central pulmonary embolism. No focal consolidations, pneumothoraces, pleural effusions. CT of the neck shows a pa tent airway, no lymphadenopathy, mild carotid artery stenosis at the bifurcations, 50% on the left and 25% stenosis on the right. CBC: Unremarkable. No leukocytosis. CMP, sodium 128, potassium 4.7, chloride 99, serum bicarb 16, BUN 12, creatinine 0.71, glucose 92. Normal saline infusing at 75 mL/h. LFTs unremarkable. Serial troponins unremarkable. NT proBNP low. TSH 2.82. Viral screen negative for influenza, RSV, COVID. Nontoxic appearance. Review of Systems Constitutional: Denies chills, Denies fever, Denies weight gain, Denies weight loss Ears, nose, mouth and throat: Denies hoarseness, Denies nasal congestion, Denies nasal discharge, Denies post-nasal drip, Denies sinus pain, Denies sinus pressure, Denies sore throat Cardiovascular: Reports orthopnea, Denies chest pain, Denies irregular heart beat, Denies leg edema, Denies lightheadedness, Denies palpitations, Denies paroxysmal nocturnal dyspnea, Denies syncope Respiratory: Reports cough, Reports dyspnea, Denies cough with sputum, Denies hemoptysis, Denies pain on inspiration, Denies wheezing Gastrointestinal: Denies abdominal pain, Denies change in bowel habits, Denies nausea, Denies vomiting Genitourinary: Denies dysuria Musculoskeletal: Denies limitation of motion Integumentary: Denies rash Neurological: Denies seizures, Denies syncope Psychiatric: Reports anxiety, Denies depression Past Medical History Past Medical History: Atrial Fibrillation, Hyperlipidemia Additional Past Medical History / Comment(s): diverticulosis, small hiatal hernia, benign liver cyst. History of Any Multi-Drug Resistant Organisms: None Reported Past Surgical History: Appendectomy, Hysterectomy Additional Past Surgical History / Comment(s): EGD, colonoscopy, R shoulder arthroscopy Past Anesthesia/Blood Transfusion Reactions: No Reported Reaction Past Psychological History: No Psychological Hx Reported Smoking Status: Never smoker Past Alcohol Use History: None Reported Past Drug Use History: None Reported - Past Family History Father History Unknown: Yes Mother Additional Family Medical History / Comment(s): Mother had osteoporosis. She at the age of 69yrs, pt does not know cause of . Medications and Allergies Home Medications Medication Instructions Recorded Confirmed Type Pravastatin Sodium [Pravachol] 20 mg PO HS 08/14/17 02/14/24 History lisinopriL [Zestril] 10 mg PO HS 08/14/17 02/14/24 History L.acidoph,Paracasei, B.lactis 1 cap PO DAILY 02/20/19 02/14/24 History [Probiotic] Multivitamins, Thera [Multivitamin 1 tab PO HS 02/20/19 02/14/24 History (formulary)] Ondansetron [Zofran] 4 - 8 mg PO Q8H PRN 11/16/23 02/14/24 History Acetaminophen Tab [Tylenol] 650 mg PO Q6HR PRN tab 11/17/23 02/14/24 Rx Apixaban [Eliquis] 2.5 mg PO BID #60 tab 11/17/23 02/14/24 Rx ALPRAZolam [Xanax] 0.25 mg PO BID PRN 02/14/24 02/14/24 History Magnesium 250 mg PO DAILY 02/14/24 02/14/24 History Metoprolol Tartrate [Lopressor] 50 mg PO BID 02/14/24 02/14/24 History Omeprazole [PriLOSEC] 40 mg PO DAILY 02/14/24 02/14/24 History Triamcinolone 0.1% Cream [Kenalog 1 applicatio TOPICAL BID PRN 02/14/24 02/14/24 History 0.1% Cream] Allergies Allergy/AdvReac Type Severity Reaction Status Date / Time Penicillins Allergy Swelling Verified 02/14/24 09:29 Physical Exam Vitals: Vital Signs Temp Pulse Resp BP Pulse Ox 02/14/24 00:06 83 20 146/78 100 02/13/24 20:52 87 02/13/24 20:42 82 02/13/24 17:43 97.7 F 86 20 136/77 100 Intake and Output 02/13/24 02/13/24 02/14/24 14:59 22:59 06:59 Other: Weight 46.72 kg GENERAL EXAM: Alert, well-appearing 80-year-old female, comfortable in no apparent distress. HEAD: Normocephalic and atraumatic EYES: Normal reaction of pupils, equal size. NOSE: Clear with pink turbinates. THROAT: No erythema or exudates. NECK: No masses, no JVD. CHEST: No chest wall deformity. LUNGS: Equal air entry with no crackles, wheeze, rhonchi or dullness. On room air. No conversational dyspnea or accessory muscle use.. CVS: S1 and S2 normal with no audible murmur, regular rhythm. No extra heart sounds ABDOMEN: No hepatosplenomegaly, active bowel sounds, no guarding or rigidity. SPINE: No scoliosis or deformity SKIN: No rashes CENTRAL NERVOUS SYSTEM: No focal deficits, tone is normal in all 4 extremities. EXTREMITIES: There is no peripheral edema, clubbing, or cyanosis. Peripheral pulses are intact. Results - Laboratory Findings CBC and BMP: 02/14/24 04:45 02/14/24 04:45 PT/INR, D-dimer PT 11.1 sec (10.0-12.5) 02/13/24 18:15 INR 1.0 (<1.2) 02/13/24 18:15 Abnormal lab findings: Abnormal Labs 02/13/24 18:15 Sodium 128 L Carbon Dioxide 16 L Calcium 10.5 H AST 43 H - Diagnostic Findings Chest x-ray: image reviewed CT scan - chest: image reviewed Assessment and Plan Assessment: Acute dyspnea, without any clear etiology Hyponatremia, likely secondary to poor oral intake History of paroxysmal atrial fibrillation, anticoagulated on Eliquis, currently sinus mechanism History of hyperlipidemia Hypertension Gastroesophageal reflux disease, currently on omeprazole outpatient Anxiety Lifelong non-smoker Plan: Patient's medications, labs, imaging reviewed Relative acute onset of symptoms in the last 2 weeks No clear etiology for dyspnea Chest CTA unremarkable for pulmonary embolism or any acute cardiopulmonary process Viral screen negative for influenza, RSV, COVID She denies any pre-existing known lung disease If symptoms persist, consider outpatient PFT Cardiology, also asked to see this patient. I have personally seen and examined the patient, performed the documentation and the assessment and plan as written. Number of minutes spent on the visit:20 This is a joint evaluation that was done along with expectation. This evaluation was done more than 30 minutes. Reviewed the CAT scan of the chest and there are no acute abnormalities. Agree and the above-mentioned plan. Sodium levels improving. The viral screen is negative. Will continue to follow. Time with Patient: Greater than 30
[2024-02-14] MEDS: LEVOTHYROXINE 50 MCG TAB PO SCH (06:54)
[2024-02-14] MEDS: APIXABAN 2.5 MG TABLET PO SCH (08:13)
[2024-02-14 08:36] LABS: Basophils # (A) 0.06 X 10*3/uL (0.00-0.10); Basophils % (A) 1.2 %; Eosinophils # (A) 0.24 X 10*3/uL (0.04-0.35); Eosinophils % (A) 4.6 %; HCT 35.9 % (37.2-46.3); HGB 12.5 g/dL (12.0-15.0); Lymphocytes # (A) 1.23 X 10*3/uL (0.90-5.00); Lymphocytes % (A) 23.8 %; MCH 31.3 pg (27.0-32.0); MCHC 34.8 g/dL (32.0-37.0); Mean Platelet Volume 9.2 FL (9.5-12.2); Monocytes # (A) 0.86 X 10*3/uL (0.20-1.00); Monocytes % (A) 16.6 %; NRBC Per 100 WBC 0 X 10*3/uL (0.00-0.01); Neutrophils # (A) 2.76 X 10*3/uL (1.80-7.70); Neutrophils % (A) 53.4 %; Platelet Count 311 X 10*3/uL (140-440); RBC 3.99 X 10*6/uL (4.10-5.20); RDW 13.3 % (11.5-14.5); WBC 5.17 X 10*3/uL (4.50-10.00)
[2024-02-14 09:08] LABS: ALT 14 U/L (8-44); AST 20 U/L (13-35); Albumin 3.8 g/dL (3.8-4.9); Albumin/Globulin Ratio 2.38 Ratio (1.60-3.17); Alkaline Phosphatase 48 U/L (41-126); Calcium 8.6 mg/dL (8.7-10.3); Carbon Dioxide 18.1 mmol/L (21.6-31.8); Chloride 105 mmol/L (96-109); Globulin 1.6 g/dL (1.6-3.3); Glucose 96 mg/dL (70-110); Magnesium 2.1 mg/dL (1.5-2.4); Phosphorus 3.8 mg/dL (2.4-5.1); Potassium 4.5 mmol/L (3.5-5.5); Sodium 133 mmol/L (135-145); Total Bilirubin 0.6 mg/dL (0.3-1.2); Total Protein 5.4 g/dL (6.2-8.2)
[2024-02-14] MEDS ORDERED: IPRATROPIUM-ALBUTEROL 3 ML NEB INHALATION PRN (11:50)
--- NOTE | 2024-02-14 12:00 | P.CRDCN ---
History of Present Illness History of present illness: HISTORY OF PRESENTING ILLNESS This is a pleasant 88-year-old with past medical history significant for paroxysmal atrial fibrillation, recent abdominal pain with weight loss with possible UTI, gallstones back in October, hypertension, hypothyroidism. She had issues in October where she was having abdominal pain and urinary tract infection and was found to be in A. fib. She was started on metoprolol as well as anticoagulation. She had lost approximately 20 pounds did not have much of an appetite. She has been drinking ensure as well as Pedialyte and weight has somewhat stabilized. Unfortunately over last 2 weeks she has been feeling more more short of breath. She states she will feel like she cannot get in a full deep breath. She also has had a cough for the last few months which has been unable to be figured out. She denies any fevers or chills. Denies any night sweats. She will get some chest pressure sensation. She was given Xanax without any real improvement. She states she has never had COPD and there was a trial of duoneb yesterday however apparently did not really work significantly. She denies any real change today. EKG shows normal sinus rhythm with minimal ST depression inferiorly and poor R-wave progression. She has not had prior stress test. She denies any family history of CAD, no tobacco. BNP normal at 165, troponin 0.014, 0.012, 0.012. She has been acidotic with bicarbonate 16, 14, 18. This was also true of last admission. She has been hyponatremic with sodium initially 128. REVIEW OF SYSTEMS At the time of my exam: CONSTITUTIONAL: Denies fever or chills. CARDIOVASCULAR: +chest pain, shortness of breath, orthopnea, PND or palpitatio ns. RESPIRATORY: Denies cough. GASTROINTESTINAL: Denies abdominal pain, diarrhea, constipation, nausea or vomiting. MUSCULOSKELETAL: Denies myalgias. NEUROLOGIC: Denies numbness, tingling or weakness. ENDOCRINE: Denies fatigue, weight change, polydipsia or polyurina. GENITOURINARY: Denies burning, hematuria or urgency with micturation. HEMATOLOGIC: Denies history of anemia or bleeding. PHYSICAL EXAMINATION Vital signs reviewed. CONSTITUTIONAL: No apparent distress. HEENT: Head is normocephalic. Pupils are equal, round. Sclerae anicteric. Mucous membranes of the mouth are moist. No JVD. No carotid bruit. CHEST EXAMINATION: Lungs are clear to auscultation. No chest wall tenderness is noted on palpation or with deep breathing. HEART EXAMINATION: Regular rate and rhythm. S1, S2 heard. No murmurs, gallops or rub. ABDOMEN: Soft, nontender. Positive bowel sounds. EXTREMITIES: 2+ peripheral pulses, no lower extremity edema and no calf tenderness. NEUROLOGIC EXAMINATION: Patient is awake, alert and oriented x3. ASSESSMENT New-onset dyspnea with some chest tightness rule out unstable angina Mildly abnormal EKG Paroxysmal atrial fibrillation currently sinus rhythm Persisting cough Hyponatremia Metabolic acidosis of unclear etiology 20 pound weight loss PLAN Patient with dyspnea of unclear etiology. She does have a cough however no real significant improvement with inhalers before. Also hasn't had any significant improvement with anxiolytics. Does not appear related to A. fib and BNP normal and does not appear consistent with heart failure. Therefore discuss stress testing patient is agreeable. Additionally she is acidotic which may be related to the Pedialyte she is drinking however acidosis may be causing some respiratory compensation and may be making her feel short of breath area there for evaluation by nephrology. Stress test tomorrow and if normal patient may be discharged home from a cardiology standpoint. Past Medical History Past Medical History: Atrial Fibrillation, Hyperlipidemia Additional Past Medical History / Comment(s): diverticulosis, small hiatal hernia, benign liver cyst. History of Any Multi-Drug Resistant Organisms: None Reported Past Surgical History: Appendectomy, Hysterectomy Additional Past Surgical History / Comment(s): EGD, colonoscopy, R shoulder arthroscopy Past Anesthesia/Blood Transfusion Reactions: No Reported Reaction Past Psychological History: No Psychological Hx Reported Smoking Status: Never smoker Past Alcohol Use History: None Reported Past Drug Use History: None Reported - Past Family History Father History Unknown: Yes Mother Additional Family Medical History / Comment(s): Mother had osteoporosis. She at the age of 69yrs, pt does not know cause of . Medications and Allergies Home Medications Medication Instructions Recorded Confirmed Type Pravastatin Sodium [Pravachol] 20 mg PO HS 08/14/17 02/14/24 History lisinopriL [Zestril] 10 mg PO HS 08/14/17 02/14/24 History L.acidoph,Paracasei, B.lactis 1 cap PO DAILY 02/20/19 02/14/24 History [Probiotic] Multivitamins, Thera [Multivitamin 1 tab PO HS 02/20/19 02/14/24 History (formulary)] Ondansetron [Zofran] 4 - 8 mg PO Q8H PRN 11/16/23 02/14/24 History Acetaminophen Tab [Tylenol] 650 mg PO Q6HR PRN tab 11/17/23 02/14/24 Rx Apixaban [Eliquis] 2.5 mg PO BID #60 tab 11/17/23 02/14/24 Rx ALPRAZolam [Xanax] 0.25 mg PO BID PRN 02/14/24 02/14/24 History Magnesium 250 mg PO DAILY 02/14/24 02/14/24 History Metoprolol Tartrate [Lopressor] 50 mg PO BID 02/14/24 02/14/24 History Omeprazole [PriLOSEC] 40 mg PO DAILY 02/14/24 02/14/24 History Triamcinolone 0.1% Cream [Kenalog 1 applicatio TOPICAL BID PRN 02/14/24 02/14/24 History 0.1% Cream] Allergies Allergy/AdvReac Type Severity Reaction Status Date / Time Penicillins Allergy Swelling Verified 02/14/24 09:29 Physical Exam Vitals: Vital Signs Temp Pulse Resp BP Pulse Ox 02/14/24 07:50 66 18 140/74 98 02/14/24 06:48 70 18 134/71 97 02/14/24 00:06 83 20 146/78 100 02/13/24 20:52 87 02/13/24 20:42 82 02/13/24 17:43 97.7 F 86 20 136/77 100 Intake and Output 02/13/24 02/14/24 02/14/24 22:59 06:59 14:59 Other: Weight 46.72 kg Results 02/14/24 04:45 02/14/24 04:45 Cardiac Enzymes 02/13/24 02/13/24 02/13/24 Range/Units 18:15 18:15 21:16 AST 43 H (14-36) U/L Troponin I 0.014 <0.012 (0.000-0.034) ng/mL 02/14/24 02/14/24 Range/Units 00:47 04:45 AST 20 (14-36) U/L Troponin I <0.012 (0.000-0.034) ng/mL Coagulation 02/13/24 Range/Units 18:15 PT 11.1 (10.0-12.5) sec APTT 22.4 (22.0-30.0) sec CBC 02/13/24 02/14/24 Range/Units 18:15 04:45 WBC 4.6 5.17 (3.8-10.6) k/uL RBC 4.67 3.99 L (3.80-5.40) m/uL Hgb 14.9 12.5 (11.4-16.0) gm/dL Hct 41.9 35.9 L (34.0-46.0) % Plt Count 360 311 (150-450) k/uL Comprehensive Metabolic Panel 02/13/24 02/14/24 02/14/24 Range/Units 18:15 00:47 04:45 Sodium 128 L 134 L 133 L (137-145) mmol/L Potassium 4.7 4.1 4.5 (3.5-5.1) mmol/L Chloride 99 110 H 105 (98-107) mmol/L Carbon Dioxide 16 L 14 L 18.1 L (22-30) mmol/L BUN 12 8 7.0 L (7-17) mg/dL Creatinine 0.71 0.60 0.7 (0.52-1.04) mg/dL Glucose 92 92 96 (74-99) mg/dL Calcium 10.5 H 9.3 8.6 L (8.4-10.2) mg/dL AST 43 H 20 (14-36) U/L ALT 21 14 (4-34) U/L Alkaline Phosphatase 55 48 (38-126) U/L Total Protein 7.5 5.4 L (6.3-8.2) g/dL Albumin 5.0 3.8 (3.5-5.0) g/dL 02/14/24 Range/Units 04:45 Sodium 131 L (137-145) mmol/L Potassium (3.5-5.1) mmol/L Chloride (98-107) mmol/L Carbon Dioxide (22-30) mmol/L BUN (7-17) mg/dL Creatinine (0.52-1.04) mg/dL Glucose (74-99) mg/dL Calcium (8.4-10.2) mg/dL AST (14-36) U/L ALT (4-34) U/L Alkaline Phosphatase (38-126) U/L Total Protein (6.3-8.2) g/dL Albumin (3.5-5.0) g/dL Current Medications Generic Name Dose Route Start Last Admin Trade Name Freq PRN Reason Stop Dose Admin Albuterol/Ipratropium 3 ml 02/14/24 11:50 Ipratropium-Albuterol 3 Ml Neb INHALATION RT-Q2H PRN Shortness Of Breath Or Wheezing Aminophylline 100 mg 02/15/24 06:00 Aminophylline 500 Mg/20 Ml Vial IV 02/15/24 23:00 ONCE PRN Patient Response Apixaban 2.5 mg 02/14/24 09:00 02/14/24 08:13 Apixaban 2.5 Mg Tablet PO 2.5 mg BID EUNICE Administration Protocol Caffeine Citrate 60 mg 02/15/24 06:00 Caffeine Citrate 60 Mg/3 Ml Vial IV 02/15/24 23:00 ONCE PRN Patient Response Sodium Chloride 1,000 mls @ 75 mls/hr 02/13/24 20:45 02/14/24 09:30 Saline 0.9% IV 75 mls/hr .[id number] EUNICE Administration Levothyroxine Sodium 50 mcg 02/14/24 06:00 02/14/24 06:54 Levothyroxine 50 Mcg Tab PO Not Given DAILY@0600 EUNICE Lorazepam 0.5 mg 02/13/24 20:48 Lorazepam 2 Mg/Ml Inj IV Q6HR PRN Anxiety Melatonin 5 mg 02/14/24 01:28 02/14/24 02:21 Melatonin 5 Mg Tablet PO 5 mg HS PRN Administration Insomnia Metoprolol Tartrate 25 mg 02/14/24 00:45 02/14/24 08:14 Metoprolol Tartrate 25 Mg Tab PO 25 mg BID EUNICE Administration Miscellaneous Information 1 each 02/13/24 19:32 Rx Info: Iv Contrast Was Given 1 Each Misc MISCELLANE 02/15/24 19:33 DAILY PRN Per Protocol Morphine Sulfate 4 mg 02/13/24 20:45 Morphine Sulfate 4 Mg/Ml Syringe IV Q4HR PRN Severe Pain (Scale 7 to 10) Naloxone HCl 0.2 mg 02/13/24 20:45 Naloxone 0.4 Mg/Ml 1 Ml Vial IV Q2M PRN Opioid Reversal Ondansetron HCl 4 mg 02/13/24 20:45 Ondansetron 4 Mg/2 Ml Vial IVP Q8HR PRN Nausea And Vomiting Pravastatin Sodium 20 mg 02/14/24 21:00 Pravastatin Sodium 20 Mg Tab PO HS EUNICE Regadenoson 0.4 mg 02/15/24 06:00 Regadenoson 0.4 Mg/5 Ml Syringe IV 02/15/24 23:00 ONCE PRN Per Protocol Intake and Output 02/13/24 02/14/24 02/14/24 22:59 06:59 14:59 Other: Weight 46.72 kg 02/14/24 04:45 02/14/24 04:45
--- NOTE | 2024-02-14 12:01 | P.PN ---
Subjective Progress Note Date: 02/14/24 Hospital Course: 88-year-old female with A-fib (on Eliquis. Managed by Dr. Abernathy), first-degree AV block, panic attacks, hyperlipidemia, asthma, hypothyroidism and hyponatremia who came in for shortness of breath. He is also complaining of some chest tightness. Vitals unremarkable. Laboratory workup shows sodium of 128, bicarb 16, creatinine 0.71, calcium 10.5 down trended to 9.3, troponin negative x 3. Chest CT did not show any acute process. Neck CT did not show any acute process. EKG shows sinus rhythm with first-degree AV block. Pulmonology and cardiology consulted. Subjective: Patient seen and examined at bedside. No acute events overnight. Continues to have dyspnea and chest tightness. Pertinent positives and negatives as discussed above, a complete review of sys tems was performed and all other systems are negative. Vitals Signs Reviewed. General: Nontoxic, no distress, appears at stated age Derm: Warm, dry Head: Atraumatic, normocephalic, symmetric Eyes: EOMI, no lid lag, anicteric sclera Mouth: No lip lesion, mucus membranes moist Cardiovascular: S1S2 reg, no murmur Lungs: CTA bilateral, no rhonchi, no rales, no accessory muscle use Abdominal: Soft, nontender to palpation, no guarding, no appreciable organomegaly Ext: No gross muscle atrophy, no edema, no contractures Neuro: CN II-XI grossly intact, no focal neuro deficits Psych: Alert, oriented, appropriate affect Data Reviewed Today: Pertinent Labs: WBC 5.17, hemoglobin 12.5, sodium 133, bicarb 18.1, creatinine 0.7, calcium 8.6, TSH 2.82 Imaging: No new imaging Assessment and Plan: Active: Dyspnea, likely cardiac in nature First-degree AV block -Cardiology consulted -May need stress test -Continue telemetry monitoring -Metoprolol was decreased overnight to 25 twice daily Hypovolemic hyponatremia Anion gap metabolic acidosis Hypercalcemia -Improved with 1.5 L of normal saline -Continue normal saline at 75 cc an hour -Repeat BMP tomorrow Chronic: Atrial fibrillation Hypothyroidism Dyslipidemia DVT ppx: Eliquis Code status: Full code Anticipated discharge place: Pending clinical course Anticipated discharge time: Pending clinical course Objective - Vital Signs Vital signs: Vital Signs Temp 97.7 F 02/13/24 17:43 Pulse 66 02/14/24 07:50 Resp 18 02/14/24 07:50 BP 140/74 02/14/24 07:50 Pulse Ox 98 02/14/24 07:50 FiO2 Intake & Output 02/13/24 02/14/24 02/14/24 18:59 06:59 18:59 Weight 46.72 kg - Labs CBC & Chem 7: 02/14/24 04:45 02/14/24 04:45 Labs: Abnormal Lab Results - Last 24 Hours (Table) 02/13/24 02/14/24 02/14/24 Range/Units 18:15 00:47 04:45 RBC 3.99 L (4.10-5.20) X 10*6/uL Hct 35.9 L (37.2-46.3) % MPV 9.2 L (9.5-12.2) FL Sodium 128 L 134 L (137-145) mmol/L Chloride 110 H (98-107) mmol/L Carbon Dioxide 16 L 14 L (22-30) mmol/L BUN (9.0-27.0) mg/dL BUN/Creatinine Ratio (12.00-20.00) Ratio Calcium 10.5 H (8.4-10.2) mg/dL AST 43 H (14-36) U/L Total Protein (6.2-8.2) g/dL 02/14/24 02/14/24 Range/Units 04:45 04:45 RBC (4.10-5.20) X 10*6/uL Hct (37.2-46.3) % MPV (9.5-12.2) FL Sodium 133 L 131 L (137-145) mmol/L Chloride (98-107) mmol/L Carbon Dioxide 18.1 L (22-30) mmol/L BUN 7.0 L (9.0-27.0) mg/dL BUN/Creatinine Ratio 10.00 L (12.00-20.00) Ratio Calcium 8.6 L (8.4-10.2) mg/dL AST (14-36) U/L Total Protein 5.4 L (6.2-8.2) g/dL
[2024-02-14 13:45] VITALS: BMI 18.8
[2024-02-14] MEDS: PRAVASTATIN SODIUM 20 MG TAB PO SCH (20:11)
[2024-02-14] MEDS: lisinopriL 10 MG TAB PO SCH (20:11)
[2024-02-14 20:43] LABS: Glucose,Whole Blood 87 mg/dL (70-110)
[2024-02-15] MEDS: MORPHINE SULFATE 4 MG/ML SYRINGE IV PRN (00:51)
[2024-02-15 05:40] LABS: Glucose,Whole Blood 87 mg/dL (70-110)
[2024-02-15] MEDS ORDERED: CAFFEINE CITRATE 60 MG/3 ML VIAL IV PRN (06:00)
[2024-02-15] MEDS ORDERED: REGADENOSON 0.4 MG/5 ML SYRINGE IV PRN (06:00)
[2024-02-15] MEDS ORDERED: AMINOPHYLLINE 500 MG/20 ML VIAL IV PRN (06:00)
[2024-02-15 11:09] LABS: Blood Urea Nitrogen 4.2 mg/dL (9.0-27.0); Carbon Dioxide 20.8 mmol/L (21.6-31.8); Chloride 105 mmol/L (96-109); Glucose 95 mg/dL (70-110); Magnesium 2.1 mg/dL (1.5-2.4); Potassium 4.5 mmol/L (3.5-5.5); Sodium 136 mmol/L (135-145)
--- NOTE | 2024-02-15 11:50 | CT ---
EXAMINATION TYPE: CT abdomen pelvis wo con DATE OF EXAM: 02/15/2024 HISTORY: lympadenopathy, mass CT DLP: 461 mGycm. Automated Exposure Control for Dose Reduction was Utilized. TECHNIQUE: Multiple axial images are obtained through the abdomen and pelvis without oral or IV cont rast material. COMPARISON: 11/13/2023 The lungs are clear. The gallbladder is unremarkable. There is no biliary ductal dilatation. There is no organomegaly of the liver, pancreas, spleen or adrenal glands. There are no renal calcifications or hydronephrosis. The caliber of the abdominal aorta is normal and there is no retroperitoneal adenopathy or hemorrhage . The bowel loops are normal in caliber is no evidence of obstruction. No inflammatory changes are iden tified in the mesentery and there is no free intraperitoneal air or fluid. There is no pelvic mass, free fluid, abscess or adenopathy. There is mild diverticulosis of the colon without CT evidence of diverticulitis. The osseous structures and soft tissues are unremarkable. IMPRESSION: Mild diverticulosis with no CT evidence of diverticulitis. There is no evidence of mass or lymphadeno anderson. [facility], , 02/15/2024 11:47 AM
[2024-02-15 12:12] LABS: Glucose,Whole Blood 108 mg/dL (70-110)
--- NOTE | 2024-02-15 13:00 | P.NPCON ---
History of Present Illness - Reason for Consult metabolic acidosis - History of Present Illness patient is an 88-year-old female with history of A. fib,hyperlipidemia, asthma who was admitted to the hospital with complaints of shortness of breath. Patient states that for the past 2 weeks she is not able to take a deep breath and has been requiring 2 pillows to sleep as well. No history of cough fever c hills. No major abnormalities noted on CT of the chest. Patient has been evaluated by pulmonology. Patient is noted to have metabolic acidosis with CO2 between 14-20. This was noted during an admission in October as well. Patient denies any significant diarrhea. No new medications was started as outpatient. No hypokalemia or hypomagnesemia noted. Review of Systems as per HPI Past Medical History Past Medical History: Atrial Fibrillation, Hyperlipidemia Additional Past Medical History / Comment(s): diverticulosis, small hiatal hernia, benign liver cyst. History of Any Multi-Drug Resistant Organisms: None Reported Past Surgical History: Appendectomy, Hysterectomy Additional Past Surgical History / Comment(s): EGD, colonoscopy, R shoulder arthroscopy Past Anesthesia/Blood Transfusion Reactions: No Reported Reaction Past Psychological History: No Psychological Hx Reported Smoking Status: Never smoker Past Alcohol Use History: None Reported Past Drug Use History: None Reported - Past Family History Father History Unknown: Yes Mother Additional Family Medical History / Comment(s): Mother had osteoporosis. She at the age of 69yrs, pt does not know cause of . Medications and Allergies Home Medications Medication Instructions Recorded Confirmed Type Pravastatin Sodium [Pravachol] 20 mg PO HS 08/14/17 02/14/24 History lisinopriL [Zestril] 10 mg PO HS 08/14/17 02/14/24 History L.acidoph,Paracasei, B.lactis 1 cap PO DAILY 02/20/19 02/14/24 History [Probiotic] Multivitamins, Thera [Multivitamin 1 tab PO HS 02/20/19 02/14/24 History (formulary)] Ondansetron [Zofran] 4 - 8 mg PO Q8H PRN 11/16/23 02/14/24 History Acetaminophen Tab [Tylenol] 650 mg PO Q6HR PRN tab 11/17/23 02/14/24 Rx Apixaban [Eliquis] 2.5 mg PO BID #60 tab 11/17/23 02/14/24 Rx ALPRAZolam [Xanax] 0.25 mg PO BID PRN 02/14/24 02/14/24 History Magnesium 250 mg PO DAILY 02/14/24 02/14/24 History Metoprolol Tartrate [Lopressor] 50 mg PO BID 02/14/24 02/14/24 History Omeprazole [PriLOSEC] 40 mg PO DAILY 02/14/24 02/14/24 History Triamcinolone 0.1% Cream [Kenalog 1 applicatio TOPICAL BID PRN 02/14/24 02/14/24 History 0.1% Cream] Allergies Allergy/AdvReac Type Severity Reaction Status Date / Time Penicillins Allergy Swelling Verified 02/14/24 09:29 Physical Exam Vitals: Vital Signs Temp Pulse Pulse Resp BP BP BP 02/15/24 07:28 97.6 F 94 16 165/78 02/15/24 06:25 97.6 F 79 17 136/78 02/15/24 02:00 97.6 F 79 17 02/14/24 20:00 98.1 F 87 17 148/83 02/14/24 17:15 80 18 135/80 Pulse Ox 02/15/24 07:28 97 02/15/24 06:25 97 02/15/24 02:00 97 02/14/24 20:00 98 02/14/24 17:15 98 Intake and Output 02/14/24 02/15/24 02/15/24 22:59 06:59 14:59 Intake Total 540 Output Total 2 Balance 540 -2 Intake: Oral 540 Output: Urine 2 Other: Voiding Method Toilet Toilet # Voids 2 Weight 46.72 kg patient is awake, alert oriented 3 Examination of the heart S1 and S2 Examination of the lungs bilateral breath sounds are heard Abdomen is soft nontender Examination of lower extremities shows no evidence of edema RAND MAKER exam grossly intact Results - Lab Results Most recent lab results Calcium 9.0 mg/dL (8.7-10.3) 02/15/24 04:56 Phosphorus 3.8 mg/dL (2.4-5.1) 02/14/24 04:45 Magnesium 2.1 mg/dL (1.5-2.4) 02/15/24 04:56 02/14/24 04:45 02/15/24 04:56 Assessment and Plan Assessment: 1. Non-gap metabolic acidosis. No clear etiology. Rule out RTA although no hypokalemia or hypomagnesemia noted. Check urine lytes for urine anion gap. 2. Dyspnea, unclear etiology possibly related to metabolic acidosis 3. Mild hypercalcemia noted on initial admission, now improved with calcium down to 9.0 from 10.5 on admission. Check David level 4. A. fib with controlled ventricular response Plan: check urine electrolytes for urine anion gap Check lactic acid Check UA Start IV bicarb Check David level Repeat labs in a.m. Thank you for the consultation. We will continue to follow the patient with you during her her hospitalization
[2024-02-15 13:09] LABS: Chloride 102 mmol/L (98-107); Creatine Kinase 61 U/L (30-135)
--- NOTE | 2024-02-15 13:23 | NM ---
EXAMINATION TYPE: NM stress lexiscan cardiolite DATE OF EXAM: 02/15/2024 COMPARISON: NONE CLINICAL INDICATION: Female, 88 years old with history of re: SOB; TECHNIQUE: After the intravenous administration of 10.6 mCi Tc 99m Sestamibi - Cardiolite resting SP ECT images acquired 80 minutes post injection. The patient received 0.4mg Lexiscan, 26.9 mCi Tc 99m Sestamibi - Stress images obtained [address] injection FINDINGS: Review of stress and rest SPECT images demonstrates no distinct perfusion abnormality. Gated analysi s shows normal wall motion with an estimated left ventricular ejection fraction of 92 %. IMPRESSION: No scintigraphic evidence for reversible ischemia. [facility], , 02/15/2024 1:20 PM
--- NOTE | 2024-02-15 14:03 | P.PN ---
Subjective Progress Note Date: 02/15/24 Pt was in stress test today during my evaluation. Hospital Course: Hospital Course: 88-year-old female with A-fib (on Eliquis. Managed by Dr. Abernathy), first-degree AV block, panic attacks, hyperlipidemia, asthma, hypothyroidism and hyponatremia who came in for shortness of breath. He is also complaining of some chest tightness. Vitals unremarkable. Laboratory workup shows sodium of 128, bicarb 16, creatinine 0.71, calcium 10.5 down trended to 9.3, troponin negative x 3. Chest CT did not show any acute process. Neck CT did not show any acute process. EKG shows sinus rhythm with first-degree AV block. Pulmonology and cardiology consulted. Assessment and Plan: Active: Dyspnea, likely cardiac in nature First-degree AV block -Cardiology consulted -Stress test was negative -Continue telemetry monitoring -Metoprolol was decreased overnight to 25 twice daily Hypovolemic hyponatremia Non-anion gap metabolic acidosis Hypercalcemia -Improved with 1.5 L of normal saline -Continue normal saline at 75 cc an hour -Repeat BMP tomorrow -Nephrology consulted, evaluating for RTA w Urine Anion Gap Chronic: Atrial fibrillation Hypothyroidism Dyslipidemia DVT ppx: Eliquis Code status: Full code Anticipated discharge place: Pending clinical course Anticipated discharge time: Pending clinical course Objective - Vital Signs Vital signs: Vital Signs Temp 97.6 F 02/15/24 07:28 Pulse 94 02/15/24 07:28 Resp 16 02/15/24 07:28 BP 165/78 02/15/24 07:28 Pulse Ox 97 02/15/24 07:28 FiO2 Intake & Output 02/14/24 02/15/24 02/15/24 18:59 06:59 18:59 Intake Total 540 Output Total 2 Balance 540 -2 Weight 46.72 kg 46.72 kg Intake: Oral 540 Output: Urine 2 Other: Voiding Method Toilet Toilet # Voids 2 - Labs CBC & Chem 7: 02/14/24 04:45 02/15/24 11:53 Labs: Abnormal Lab Results - Last 24 Hours (Table) 02/15/24 Range/Units 04:56 Carbon Dioxide 20.8 L (21.6-31.8) mmol/L BUN 4.2 L (9.0-27.0) mg/dL BUN/Creatinine Ratio 6.00 L (12.00-20.00) Ratio
--- NOTE | 2024-02-15 14:22 | P.PN ---
Subjective Progress Note Date: 02/15/24 HISTORY OF PRESENTING ILLNESS This is a pleasant 88-year-old with past medical history significant for par oxysmal atrial fibrillation, recent abdominal pain with weight loss with possible UTI, gallstones back in October, hypertension, hypothyroidism. She had issues in October where she was having abdominal pain and urinary tract infection and was found to be in A. fib. She was started on metoprolol as well as anticoagulation. She had lost approximately 20 pounds did not have much of an appetite. She has been drinking ensure as well as Pedialyte and weight has somewhat stabilized. Unfortunately over last 2 weeks she has been feeling more more short of breath. She states she will feel like she cannot get in a full deep breath. She also has had a cough for the last few months which has been unable to be figured out. She denies any fevers or chills. Denies any night sweats. She will get some chest pressure sensation. She was given Xanax without any real improvement. She states she has never had COPD and there was a trial of duoneb yesterday however apparently did not really work significantly. She denies any real change today. EKG shows normal sinus rhythm with minimal ST depression inferiorly and poor R-wave progression. She has not had prior stress test. She denies any family history of CAD, no tobacco. BNP normal at 165, troponin 0.014, 0.012, 0.012. She has been acidotic with bicarbonate 16, 14, 18. This was also true of last admission. She has been hyponatremic with sodium initially 128. 02/14 Patient is seen and examined. Patient is scheduled for Lexiscan Cardiolite stress test today. No scintigraphic evidence of reversible ischemia. She still has some shortness of breath, cough, fatigue, headache. SHe states she is still having difficulty taking a deep breath. She does not feel any better. Blood pressure 165/78, heart rate 94, pulse ox 97% on room air. Due to patient's ongoing complaint of difficulty in breathing and acidosis, a consult was added for nephrology to evaluate. PHYSICAL EXAMINATION Vital signs reviewed. CONSTITUTIONAL: No apparent distress. HEENT: Head is normocephalic. Pupils are equal, round. Sclerae anicteric. Mucous membranes of the mouth are moist. No JVD. No carotid bruit. CHEST EXAMINATION: Lungs are clear to auscultation. No chest wall tenderness is noted on palpation or with deep breathing. HEART EXAMINATION: Regular rate and rhythm. S1, S2 heard. No murmurs, gallops or rub. ABDOMEN: Soft, nontender. Positive bowel sounds. EXTREMITIES: 2+ peripheral pulses, no lower extremity edema and no calf tenderness. NEUROLOGIC EXAMINATION: Patient is awake, alert and oriented x3. ASSESSMENT New-onset dyspnea with some chest tightness rule out unstable angina Mildly abnormal EKG Paroxysmal atrial fibrillation currently sinus rhythm Persisting cough Hyponatremia Metabolic acidosis of unclear etiology 20 pound weight loss PLAN Patient with dyspnea of unclear etiology. She does have a cough however no real significant improvement with inhalers before. Also hasn't had any significant improvement with anxiolytics. Does not appear related to A. fib and BNP normal and does not appear consistent with heart failure. Additionally she is acidotic which may be related to the Pedialyte she is drinking however acidosis may be causing some respiratory compensation and may be making her feel short of breath area there for evaluation by nephrology. Patient may be discharged home from a cardiology standpoint. Cardiology will sign off this case and follow on an as-needed basis. Please reconsult for any new concerns. Patient may follow-up in the office in one to 2 weeks. Nurse practitioner note has been reviewed, I agree with documented findings and plan of care. Patient was seen and examined. Objective - Vital Signs Vital signs: Vital Signs Temp 97.6 F 02/15/24 07:28 Pulse 94 02/15/24 07:28 Resp 16 02/15/24 07:28 BP 165/78 02/15/24 07:28 Pulse Ox 97 02/15/24 07:28 FiO2 Intake & Output 02/14/24 02/15/24 02/15/24 18:59 06:59 18:59 Intake Total 540 Output Total 2 Balance 540 -2 Weight 46.72 kg 46.72 kg Intake: Oral 540 Output: Urine 2 Other: Voiding Method Toilet # Voids 2 - Labs CBC & Chem 7: 02/14/24 04:45 02/15/24 11:53
[2024-02-15] MEDS: ACETAMINOPHEN TAB 325 MG TAB PO PRN (14:24)
[2024-02-15 14:31] LABS: Appearance,Urine Clear (Clear); Bilirubin,Urine Negative (Negative); Blood,Urine Negative (Negative); Color,Urine Colorless; Glucose,Urine (UA) Negative (Negative); Ketones,Urine 1+ (Negative); Leukocyte Esterase,Urine Negative (Negative); Nitrite,Urine Negative (Negative); PH, Urine 7.5 (5.0-8.0); Protein,Urine Negative (Negative); Specific Gravity,Urine 1.011 (1.001-1.035); Urobilinogen,Urine <2.0 mg/dL (<2.0)
--- NOTE | 2024-02-15 14:36 | P.PN ---
Subjective Progress Note Date: 02/15/24 Patient is an 88-year-old female with past medical history significant for thyroid disorder, GERD, hyperlipidemia, hypertension, A-fib, anxiety. Presents to the emergency department yesterday evening, after being sent in by her PCP Dr. Martinez. Complaining chiefly of shortness of breath over the last 2 weeks. She states that it feels like she cannot take a deep breath. No associated pain. This makes her anxious, and as needed Ativan seems to help. This has interfered with her sleep at home. Associated dry nonproductive cough over the same timeframe, intermittent throughout the day. She denies sick contacts. Denies fevers, sputum production, rhinorrhea, sore throat, sinus pressure/pain, etc. Denies known pre-existing lung disease such as COPD or asthma. Lifelong non-smoker. Does take lisinopril for high blood pressure. Also, has GERD, currently takes omeprazole. Appetite has been reduced due to reflux and indigestion. Reportedly, scheduled for upper and lower scope with Dr. Cohen in February. She denies any chest pain. Occasional heart palpitations without lightheadedness or syncope. Denies increased lower extremity edema. She does report increased shortness of breath when lying flat in bed, so she sleeps with 2 pillows at bedtime. She does have history of paroxysmal atrial fibrillation. She is anticoagulated on Eliquis. EKG: Normal sinus rhythm, rate 79 bpm, no acute ischemic changes. Recent echocardiogram performed October, estimating a preserved left ventricular ejection fraction of 55 to 60% without significant valvular abnormalities. Chest x-ray taken on arrival does not demonstrate any acute cardiopulmonary process. This was followed by a chest CT with contrast which did not show any obvious central pulmonary embolism. No focal consolidations, pneumothoraces, pleural effusions. CT of the neck shows a patent airway, no lymphadenopathy, mild carotid artery stenosis at the bifurcations, 50% on the left and 25% stenosis on the right. CBC: Unremarkable. No leukocytosis. CMP, sodium 128, potassium 4.7, chloride 99, serum bicarb 16, BUN 12, creatinine 0.71, glucose 92. Normal saline infusing at 75 mL/h. LFTs unremarkable. Serial troponins unremarkable. NT proBNP low. TSH 2.82. Viral screen negative for influenza, RSV, COVID. Nontoxic appearance. On 02/15/2024, the patient is being seen for a follow-up. The patient has undergone extensive pulmonary and cardiac workup. In terms of her pulmonary status, she is stable and she is on room air oxygen with a pulse ox of 97%. CAT scan of the chest done on 02/13/2024 showed no evidence of any consolidation or pneumothorax. There was some mild background emphysema. No acute cardiopulmo nary process. CAT scan of the neck also showed no lymphadenopathy, airways were patent and there is some atherosclerosis along the carotid bifurcation. The CAT scan of the abdomen and pelvis was done on 02/15/2024 showed evidence of some mild diverticulosis. The cardiac stress test done on 02/15/2024 showed no evidence of any reversible ischemia. The patient's has UA, +1 protein, CPK is normal, electrolytes are normal, coagulation profile is normal, hematologic profile shows a hemoglobin of 12.5. No chest pain. No pleurisy. No other new complaints otherwise for now. Objective - Vital Signs Vital signs: Vital Signs Temp 97.6 F 02/15/24 07:28 Pulse 94 02/15/24 07:28 Resp 16 02/15/24 07:28 BP 165/78 02/15/24 07:28 Pulse Ox 97 02/15/24 07:28 FiO2 Intake & Output 02/14/24 02/15/24 02/15/24 18:59 06:59 18:59 Intake Total 540 Output Total 2 Balance 540 -2 Weight 46.72 kg 46.72 kg Intake: Oral 540 Output: Urine 2 Other: Voiding Method Toilet Toilet # Voids 2 - Exam GENERAL EXAM: Alert, well-appearing 80-year-old female, comfortable in no apparent distress. HEAD: Normocephalic and atraumatic EYES: Normal reaction of pupils, equal size. NOSE: Clear with pink turbinates. THROAT: No erythema or exudates. NECK: No masses, no JVD. CHEST: No chest wall deformity. LUNGS: Equal air entry with no crackles, wheeze, rhonchi or dullness. On room air. No conversational dyspnea or accessory muscle use.. CVS: S1 and S2 normal with no audible murmur, regular rhythm. No extra heart sounds ABDOMEN: No hepatosplenomegaly, active bowel sounds, no guarding or rigidity. SPINE: No scoliosis or deformity SKIN: No rashes CENTRAL NERVOUS SYSTEM: No focal deficits, tone is normal in all 4 extremities. EXTREMITIES: There is no peripheral edema, clubbing, or cyanosis. Peripheral pulses are intact. - Labs CBC & Chem 7: 02/14/24 04:45 02/15/24 11:53 Labs: Abnormal Lab Results - Last 24 Hours (Table) 02/15/24 Range/Units 04:56 Carbon Dioxide 20.8 L (21.6-31.8) mmol/L BUN 4.2 L (9.0-27.0) mg/dL BUN/Creatinine Ratio 6.00 L (12.00-20.00) Ratio Assessment and Plan Assessment: Acute dyspnea, without any clear etiology Hyponatremia, likely secondary to poor oral intake, improved History of paroxysmal atrial fibrillation, anticoagulated on Eliquis, currently sinus mechanism History of hyperlipidemia Hypertension Gastroesophageal reflux disease, currently on omeprazole outpatient Anxiety Lifelong non-smoker Plan: Reviewed the CAT scan of the chest and there are no acute abnormalities. Agree and the above-mentioned plan. Sodium levels improving. The viral screen is negative. The cardiac stress test is negative. CAT scan of the neck is negat mackenzie. CAT scan of the abdomen is negative.
--- NOTE | 2024-02-15 15:57 | CA ---
Lexiscan Nuclear Stress Test Report Name: Allison Santoro Exam Date: 02/15/2024 09:03 Exam Location: [place] Stress Ht (in): 62 Wt (lb): 103 BSA: 1.44 Ordering Phys: Raymond Cervantes DO Referring Phys: NORM, Technologist: Evaristo Isbell Age: 88 Gender: F : 1935 Procedure CPT: Indications: Reflex order-Stress test ICD-10 Codes: Patient History: Medications: see chart Meds past 24 hrs: Pretest Chest Pain: STRESS TEST Lexiscan Protocol Exercise Duration (min:sec): 01:[address] Depressions (mm): Angina Score: Quiroga Score: Resting HR (bpm): 92 Peak HR (bpm): 127 Resting BP (mmHg): 146 / 74 Peak BP (mmHg): 135 / 69 MPHR: 132 Target HR: 112 % MPHR: 96 METS: 1.0 Total Dose: Peak Dose: Atropine: Double Product: 08854 BP Response: Stress Termination: INFUSION COMPLETE Stress Symptoms: DIFFICULTY IN BREATHING Stress Summary: ECG ANALYSIS Resting ECG: Stress ECG: CONCLUSIONS At baseline EKG showed normal sinus rhythm, normal axis, no significant ST or T wave abnormalities. Patient recieved IV infusion of Lexiscan 0.4mg and at peak infusion EKG showed no change from baseline. Conclusions: 1. Normal EKG response to Lexiscan infusion 2. Nuclear imaging to be reported separately. Dr. Raymond Cervantes DO (Electronically Signed) Final Date: 15 February 2024 15:56
[2024-02-15] MEDS: DEXTROSE 5% IN WATER 1,000 ML with SODIUM BICARB (1 MEQ/ML) 150 ML IV SCH (16:04)
[2024-02-15 17:28] LABS: Glucose,Whole Blood 101 mg/dL (70-110)
[2024-02-15] MEDS: METOPROLOL TARTRATE 50 MG TAB PO SCH (21:19)
[2024-02-15] MEDS: ALPRAZolam 0.25 MG TAB PO PRN (21:19)
[2024-02-16 11:53] LABS: African American GFR (CKD) >90 (>60 ml/min/1.73 sqM); Anion Gap 5 mmol/L; Blood Urea Nitrogen 12 mg/dL (7-17); Calcium 9.1 mg/dL (8.4-10.2); Carbon Dioxide 32 mmol/L (22-30); Chloride 98 mmol/L (98-107); Glucose 88 mg/dL (74-99); Non-African American GFR(CKD) 81 (>60 ml/min/1.73 sqM); Potassium 4.1 mmol/L (3.5-5.1); Sodium 135 mmol/L (137-145)
--- NOTE | 2024-02-16 12:55 | P.PN ---
Subjective Progress Note Date: 02/16/24 No new complaints today. Pt was switched to bicarb gtt per nephrology. Gen: In NAD, non-toxic HEENT: normocephalic, atraumatic, hearing acuity is intant, mucous membranes moist CVS: perfusing all extremities well, no pitting edema, Respiratory: symmetric chest expansion, no accessory muscle use, GI: soft, NTTP, ND, : no suprapubic tenderness, no CVA tenderness MSK/Derm: no rashes, cyanosis Neuro: CN II-XII intact, no motor weakness, Psych: cooperative, euthymic mood, judgment and insight is intact Hospital Course: 88-year-old female with A-fib (on Eliquis. Managed by Dr. Abernathy), first-degree AV block, panic attacks, hyperlipidemia, asthma, hypothyroidism and hyponatremia who came in for shortness of breath. He is also complaining of some chest tightness. Vitals unremarkable. Laboratory workup shows sodium of 128, bicarb 16, creatinine 0.71, calcium 10.5 down trended to 9.3, troponin negative x 3. Chest CT did not show any acute process. Neck CT did not show any acute proce ss. EKG shows sinus rhythm with first-degree AV block. Pulmonology and cardiology consulted. Assessment and Plan: Active: Dyspnea, likely cardiac in nature First-degree AV block -Cardiology consulted -Stress test was negative -Continue telemetry monitoring -Metoprolol was decreased overnight to 25 twice daily Hypovolemic hyponatremia Non-anion gap metabolic acidosis Hypercalcemia -Improved with 1.5 L of normal saline -Continue normal saline at 75 cc an hour -Repeat BMP tomorrow -Nephrology consulted, evaluating for RTA w Urine Anion Gap Chronic: Atrial fibrillation Hypothyroidism Dyslipidemia DVT ppx: Eliquis Code status: Full code Anticipated discharge place: Pending clinical course Anticipated discharge time: Pending clinical course Objective - Vital Signs Vital signs: Vital Signs Temp 97.5 F L 02/16/24 07:00 Pulse 62 02/16/24 07:00 Resp 16 02/16/24 07:00 BP 128/71 02/16/24 07:00 Pulse Ox 93 L 02/16/24 07:00 FiO2 Intake & Output 02/15/24 02/16/24 02/16/24 18:59 06:59 18:59 Intake Total 118 118 Balance 118 118 Intake: Oral 118 118 Other: Voiding Method Toilet Toilet Toilet # Voids 3 2 - Labs CBC & Chem 7: 02/14/24 04:45 02/16/24 11:20 Labs: Abnormal Lab Results - Last 24 Hours (Table) 02/15/24 02/16/24 Range/Units 13:38 11:20 Sodium 135 L (137-145) mmol/L Carbon Dioxide 32 H (22-30) mmol/L Urine Ketones 1+ H (Negative)
[2024-02-16] MEDS: LACTATED RINGERS 1,000 ML IV SCH (14:22)
--- NOTE | 2024-02-16 17:53 | P.PN ---
Subjective Patient is seen for follow-up for metabolic acidosis. Currently maintained on IV bicarb. Patient states her shortness of breath is improved. CO2 is 32. UA was positive for ketones. Objective - Vital Signs Vital signs: Vital Signs Temp 97.5 F L 02/16/24 14:11 Pulse 79 02/16/24 14:11 Resp 16 02/16/24 14:11 BP 109/63 02/16/24 14:11 Pulse Ox 98 02/16/24 14:11 FiO2 Intake & Output 02/15/24 02/16/24 02/16/24 18:59 06:59 18:59 Intake Total 118 236 Balance 118 236 Intake: Oral 118 236 Other: Voiding Method Toilet Toilet Toilet # Voids 3 2 5 - Exam Patient is awake, comfortable, no acute distress. Examination showed no significant edema. Alert oriented x 3 JAVA TECHNICAL MANAGER exam grossly intact - Labs CBC & Chem 7: 02/14/24 04:45 02/16/24 11:20 Labs: Abnormal Lab Results - Last 24 Hours (Table) 02/16/24 Range/Units 11:20 Sodium 135 L (137-145) mmol/L Carbon Dioxide 32 H (22-30) mmol/L Assessment and Plan Assessment: 1. Non-gap metabolic acidosis. No clear etiology. Rule out RTA although no hypokalemia or hypomagnesemia noted. Urine chloride not available. Improved. 2. Dyspnea, unclear etiology possibly related to metabolic acidosis 3. Mild hypercalcemia noted on initial admission, now improved with calcium down to 9.0 from 10.5 on admission. Check David level 4. A. fib with controlled ventricular response Plan: DC bicarb drip Switch to Ringer lactate Repeat labs in a.m. Reorder urine lytes.
[2024-02-16] MEDS: DOCUSATE 100 MG CAP PO PRN (20:33)
[2024-02-16] MEDS: LORazepam 2 MG/ML INJ IV PRN (21:52)
[2024-02-17 07:22] VITALS: BP 117/66; PULSE 86; RESP 16; TEMP 97.6
[2024-02-17] MEDS: ONDANSETRON 4 MG/2 ML VIAL IVP PRN (08:36)
--- NOTE | 2024-02-17 09:50 | P.DS ---
Providers Date of admission: 02/13/24 20:47 Expected date of discharge: 02/17/24 Attending physician: Froy Dubon MD Consults: 02/13/24 20:45 Consult Physician Routine Consulting Provider: Rosi Goncalves Consult Reason/Comments: dyspnea Do you want consulting provider notified?: Yes Consult Physician Routine Consulting Provider: Justin Denney Consult Reason/Comments: dyspnea Do you want consulting provider notified?: Yes 02/14/24 11:51 Consult Physician Routine Consulting Provider: Cathryn Colon Consult Reason/Comments: re: metabolic acidosis, SOB Do you want consulting provider notified?: Yes Primary care physician: [facility] Course: Dyspnea, likely cardiac in nature First-degree AV block Hypovolemic hyponatremia Non-anion gap metabolic acidosis Hypercalcemia Atrial fibrillation Hypothyroidism Dyslipidemia Gen: In NAD, non-toxic HEENT: normocephalic, atraumatic, hearing acuity is intant, mucous membranes moist CVS: perfusing all extremities well, no pitting edema, Respiratory: symmetric chest expansion, no accessory muscle use, GI: soft, NTTP, ND, : no suprapubic tenderness, no CVA tenderness MSK/Derm: no rashes, cyanosis Neuro: CN II-XII intact, no motor weakness, Psych: cooperative, euthymic mood, judgment and insight is intact Hospital Course: 88-year-old female with A-fib (on Eliquis. Managed by Dr. Abernathy), first-degree AV block, panic attacks, hyperlipidemia, asthma, hypothyroidism and hyponatremia who came in for shortness of breath. He is also complaining of some chest tightness. Vitals unremarkable. Laboratory workup shows sodium of 128, bicarb 16, creatinine 0.71, calcium 10.5 down trended to 9.3, troponin negative x 3. Chest CT did not show any acute process. Neck CT did not show any acute proc ess. EKG shows sinus rhythm with first-degree AV block. Pulmonology and cardiology consulted. Patient underwent cardiac stress testing which was negative for reversible ischemia. Cardiology felt that it was possible patient's dyspnea was secondary to non-anion gap metabolic acidosis causing compensatory respiratory alkalosis, therefore nephrology was consulted. Patient underwent workup for non-anion gap metabolic acidosis, however, urine chloride was not available. She was started on bicarb drip with improvement of her CO2, as well as her symptoms. Subsequently, she was discharged home with instructions to follow-up with primary care physician as well as cardiology. Patient Condition at Discharge: Good Plan - Discharge Summary New Discharge Prescriptions: New Levothyroxine Sodium [Synthroid] 50 mcg PO DAILY@0600 #30 tab Continue Pravastatin Sodium [Pravachol] 20 mg PO HS lisinopriL [Zestril] 10 mg PO HS Multivitamins, Thera [Multivitamin (formulary)] 1 tab PO HS L.acidoph,Paracasei, B.lactis [Probiotic] 1 cap PO DAILY Acetaminophen Tab [Tylenol] 650 mg PO Q6HR PRN tab PRN Reason: Mild Pain Or Fever > 100.5 ALPRAZolam [Xanax] 0.25 mg PO BID PRN PRN Reason: Anxiety Ondansetron [Zofran] 4 - 8 mg PO Q8H PRN PRN Reason: Nausea And Vomiting Apixaban [Eliquis] 2.5 mg PO BID #60 tab Triamcinolone 0.1% Cream [Kenalog 0.1% Cream] 1 applicatio TOPICAL BID PRN PRN Reason: Skin Irritation Metoprolol Tartrate [Lopressor] 50 mg PO BID Magnesium 250 mg PO DAILY Omeprazole [PriLOSEC] 40 mg PO DAILY Discharge Medication List Pravastatin Sodium [Pravachol] 20 mg PO HS 08/14/17 [History] lisinopriL [Zestril] 10 mg PO HS 08/14/17 [History] L.acidoph,Paracasei, B.lactis [Probiotic] 1 cap PO DAILY 02/20/19 [History] Multivitamins, Thera [Multivitamin (formulary)] 1 tab PO HS 02/20/19 [History] Ondansetron [Zofran] 4 - 8 mg PO Q8H PRN 11/16/23 [History] Acetaminophen Tab [Tylenol] 650 mg PO Q6HR PRN tab 11/17/23 [Rx] Apixaban [Eliquis] 2.5 mg PO BID #60 tab 11/17/23 [Rx] ALPRAZolam [Xanax] 0.25 mg PO BID PRN 02/14/24 [History] Magnesium 250 mg PO DAILY 02/14/24 [History] Metoprolol Tartrate [Lopressor] 50 mg PO BID 02/14/24 [History] Omeprazole [PriLOSEC] 40 mg PO DAILY 02/14/24 [History] Triamcinolone 0.1% Cream [Kenalog 0.1% Cream] 1 applicatio TOPICAL BID PRN 02/14/24 [History] Levothyroxine Sodium [Synthroid] 50 mcg PO DAILY@0600 #30 tab 02/17/24 [Rx] Follow up Appointment(s)/Referral(s): [facility] [Provider Group] - 1 Week Yefri Martinez DO [Primary Care Provider] - 1-2 days Discharge Disposition: HOME SELF-CARE
[2024-02-17 09:59] LABS: Magnesium 1.9 mg/dL (1.5-2.4)
[2024-02-17 10:25] LABS: BUN/Creat Ratio 14.62 Ratio (12.00-20.00); Blood Urea Nitrogen 11.7 mg/dL (9.0-27.0); Calcium 9.4 mg/dL (8.7-10.3); Carbon Dioxide 24.2 mmol/L (21.6-31.8); Chloride 100 mmol/L (96-109); Glucose 87 mg/dL (70-110); Potassium 4.5 mmol/L (3.5-5.5); Sodium 136 mmol/L (135-145)
== END 2024-02-17 12:25 | disposition home or self-care (01) ==
LOC: EC 17:41 → 6NMEDSUR 20:47
PROVIDERS: ADMIT Internal Medicine; ATTEND Internal Medicine
DX: R06.00 Dyspnea, unspecified (principal); R07.89 Other chest pain; E87.20 Acidosis, unspecified; I48.0 Paroxysmal atrial fibrillation; E83.52 Hypercalcemia; I10 Essential (primary) hypertension; E03.9 Hypothyroidism, unspecified; E87.1 Hypo-osmolality and hyponatremia; E78.5 Hyperlipidemia, unspecified; R05.3 Chronic cough; J45.909 Unspecified asthma, uncomplicated; K21.9 Gastro-esophageal reflux disease without esophagitis; F41.0 Panic disorder [episodic paroxysmal anxiety]; I44.0 Atrioventricular block, first degree; E86.1 Hypovolemia; R63.4 Abnormal weight loss; Z68.1 Body mass index [BMI] 19.9 or less, adult; Z79.899 Other long term (current) drug therapy; Z79.01 Long term (current) use of anticoagulants; Z79.890 Hormone replacement therapy; Z88.0 Allergy status to penicillin; R11.2 Nausea with vomiting, unspecified
CPT/HCPCS: 96376 ×2; 96374 ×2; 96375 ×2; 99285; 36415; 94640; 93005; 93017; 36410; 76937; 82436; 84300; 83880; 80053 ×2; 80048 ×4; 84443; 84133; 82435; 82550; 82164; 83605; 83735 ×4; 84100; 84295; 84484 ×2; 85025 ×2; 85610; 85730; 81003; 86334; 86335; 87636; 71045; 70491; 71260; 74176; 78452; G0378 ×5; A9500; J2060 ×3; J2270 ×2; J2405; J2785; Q9967

== ENCOUNTER → 2024-03-07 | Day surgery (SDC) | payer MEDICARE ==
[2024-03-05 10:17] VITALS: BMI 19.2
[~2024-03-07] MED LIST: LIDOCAINE 1% INJ 10MG/ML (20 ML MDV) ONE; PROPOFOL 10 MG/ML 20 ML VIAL IV ONE
[2024-03-07] MEDS: IV FLUID CONTINUATION 1,000 ML IV ONE (10:07)
[2024-03-07 10:11] VITALS: TEMP 97.6
[2024-03-07] MEDS: LACTATED RINGERS 1,000 ML IV SCH (10:25)
--- NOTE | 2024-03-07 10:44 | P.PCN ---
Date of Procedure: 03/07/24 Procedure(s) Performed: Brief history: Patient is a pleasant 88-year-old white female scheduled for an elective upper endoscopy as well as colonoscopy as a part of evaluation of abdominal pain, change in bowel habits and progressive weight loss of 20 pounds in the last 6 months duration Procedure performed: Esophagogastroduodenoscopy with biopsy Colonoscopy Preoperative diagnosis: Abdominal pain and weight loss Change in bowel habits Anesthesia: MAC Procedure: After informed consent was obtained from the patient was brought into the endoscopy unit and IV sedation was administered by anesthesia under continuous monitoring. Initially upper endoscopy was done. The Olympus GF 160 video endoscope was inserted inserted into the mouth and esophagus intubated without any difficulty and was gradually advanced into the stomach and duodenum and carefully examined. The bulb and second part of the duodenum appeared normal. The scope was then withdrawn into the stomach adequately insufflated with air and upon careful examination the antrum and body, cardia and fundus appeared normal. In the fundus of the stomach there was a 6 mm submucosal nodule identified which was biopsied. The scope was then withdrawn into the esophagus. The GE junction was located at 36 cm to the incisors. It appeared regular with some erythema consistent with LA grade a reflux esophagitis.. Rest of the esophagus appeared normal. Patient tolerated the procedure well. At this time the patient continued to remain sedation. Initial digital rectal examination was normal. Olympus CF 160 video colonoscope was then inserted into the rectum and gradually advanced to the cecum without any difficulty. Careful examination was performed as the scope was gradually being withdrawn. The prep was excellent. The cecum, ascending colon, transverse colon, descending colon, sigmoid colon and rectum appeared normal. Scattered sigmoid diverticulosis. Retroflexion was performed in the rectum and no lesions were noted. Patient tolerated the procedure well. Impression: 1. Upper endoscopy revealed 6 mm submucosal nodule in the fundus of the stomach s/p biopsy and LA grade a reflux esophagitis 2. Colonoscopy revealed scattered sigmoid diverticulosis but no evidence of colorectal neoplasia Recommendations: Findings of this examination were discussed with the patient as well as her family. She was advised to follow-up with the biopsy result. Follow-up in the office in 2 weeks.
[2024-03-07 11:05] VITALS: BP 131/74; PULSE 71; RESP 16
== END ==
LOC: ORWHC2ENDO 09:45
PROVIDERS: ATTEND Internal Medicine Gastroenterology
DX: K21.00 Gastro-esophageal reflux disease with esophagitis, without bleeding (principal); K57.30 Diverticulosis of large intestine without perforation or abscess without bleeding; I10 Essential (primary) hypertension; E78.5 Hyperlipidemia, unspecified; I48.91 Unspecified atrial fibrillation; Z88.0 Allergy status to penicillin; Z79.899 Other long term (current) drug therapy
CPT/HCPCS: 45378; 43239; J2003; J2704; 88305

== ENCOUNTER → 2024-05-05 | Outpatient (CLI) | payer MEDICARE ==
--- NOTE | 2024-05-05 13:06 | BD ---
EXAMINATION TYPE: Axial Bone Density DATE OF EXAM: 05/05/2024 CLINICAL HISTORY: 88 years old Female. ICD-10 CODE: M85.80 Disorder of bone , Additional History: Height: 61 Weight: 108.8 FRAX RISK QUESTIONS: Alcohol (3 or more units per day): no Family History (Parent hip fracture): no Glucocorticoids (More than 3mos): no (Ex: prednisone, prednisolone, methylprednisolone, dexamethasone, and hydrocortisone). History of Fracture in Adulthood: no Secondary Osteoporosis: 1. Type 1 Diabetes: no 2. Hyperthyroidism: no 3. Menopause before 45: no 4. Malnutrition: no 5. Chronic liver disease: no Rheumatoid Arthritis: no Current Tobacco Use: no RISK FACTORS HISTORY OF: Surgery to Spine/Hip(right/left)/Wrist (right/left): no EXAM MEASUREMENTS: Bone mineral densitometry was performed using the [employer] System. Bone mineral density as measured about the Lumbar spine is: ----- L1-L4(G/cm2): 1.031 T Score Values are as follows: ----- L1: -2.5 ----- L2: -1.6 ----- L3: -0.5 ----- L4: -0.8 ----- L1-L4: -1.2 Z Score Values are as follows: ----- L1: 0.0 ----- L2: 0.9 ----- L3: 2.1 ----- L4: 1.7 ----- L1-L4: 1.3 Bone mineral density : baseline Bone mineral density about the R hip (g/cm2): 0.717 Bone mineral density about the L hip (g/cm2): 0.736 T Score values are as follows: -----R Neck: -1.5 -----L Neck: -1.4 -----R Total: -2.3 -----L Total: -2.2 Z Score values are as follows: -----R Neck: 1.4 -----L Neck: 1.5 -----R Total: 0.5 -----L Total: 0.7 Bone mineral density : baseline FRAX%s: The graph provided illustrates a 9.6% chance for a major osteoporotic fx and a 3.0% chance fo r the hips probability for fx in 10 years time. IMPRESSION: Osteopenia (T Score between -2.5 and -1). There is slightly increased risk of fracture and the patient may be considered for treatment. Re-Screen 2-5 years. NOTE: T-SCORE=SD OF THE YOUNG ADULT MEAN. [facility], Workstation: [facility], 05/05/2024 1:04 PM
--- NOTE | 2024-05-06 12:13 | MM ---
Reason for Exam: Screening (asymptomatic). Last mammogram was performed 1 year(s) and 1 month(s) ago. Patient History: Menarche at age 15. First Full-Term at age 19. Hysterectomy at age 45. Postmenopausal. Patient used Estrogen and Progesterone for 1 year. 2004, Excisional Biopsy on the Right side. Prior Study Comparison: 11/24/2021 Bilateral Screening Mammogram, [facility]. 03/30/2023 Bilateral Screening Mammogram, [facility]. Tissue Density: The breasts are heterogeneously dense, which may obscure small masses. Findings: Analyzed By CAD. Right breast biopsy clip. Right breast: There is no suspicious group of microcalcifications or new suspicious mass. Benign-appearing calcifications right breast. Left breast: There is no suspicious group of microcalcifications or new suspicious mass. Benign-appearing calcifications left breast. Overall Assessment: Benign, BI-RAD 2 Management: Screening Mammogram of both breasts in [address] [facility] will attempt to contact patient to return for supplemental views and ultrasound if indicated. Patient should continue monthly self-breast exams. A clinical breast exam by your physician is recommended on an annual basis. This exam should not preclude additional follow-up of suspicious palpable abnormalities. Note on Stacy scores and lifetime risk: 1. A Stacy score greater than 3% is considered moderate risk. If this is the case, consider specialist referral to assess eligibility for a risk reducing agent. 2. If overall lifetime risk for the development of breast cancer is 20% or higher, the patient may qualify for future screening with alternating mammogram and breast MRI. [facility], , 05/06/2024 12:09 PM. Electronically signed and approved by: Gary Mitchell DO
== END | disposition home or self-care (01) ==
LOC: RADMAMWWP 12:08
PROVIDERS: ATTEND Family Medicine
DX: Z12.31 Encounter for screening mammogram for malignant neoplasm of breast (principal); M85.80 Other specified disorders of bone density and structure, unspecified site; Z78.0 Asymptomatic menopausal state; R92.333 Mammographic heterogeneous density, bilateral breasts; Z98.82 Breast implant status
CPT/HCPCS: 77063; 77067; 77080